=== PATIENT | male | born 1960 | race African-American/Black ===

== ENCOUNTER 2018-04-20 17:01 | Emergency (ER) | payer OTHER ==
[2018-04-20] MEDS ORDERED: ASPIRIN 81 MG TABLET, CHEWABLE PO ONE (17:37)
--- NOTE | 2018-04-20 17:37 | ER Document Report ---
ED Medical Screen (RME) - General Chief Complaint: Chest Pain Stated Complaint: CHEST PAIN,ARM NUMBNESS Time Seen by Provider: 04/20/18 17:34 Notes: RAPID MEDICAL EVALUATION DISCLOSURE I have seen this patient as part of a Rapid Medical Evaluation and, if applicable, placed any initially appropriate orders. The patient will be seen and fully evaluated, including a full history and physical exam, by a provider ( in Main ED or Fast Track) when a room becomes available. 57-year-old male here with complaints of left-sided chest pain radiating up to the left shoulder down the left arm with arm numbness shortness of breath lightheadedness nausea ongoing for the past 2 hours. Symptoms are not worse with exertion or breathing. He thought it was his acid reflux so he took 1 dose of omeprazole with minimal relief. He denies any prior history of CAD diabetes hyperlipidemia tobacco use but does have a history of hypertension and does recreationally use marijuana. EXAM CTAB RRR NOTE Patient states he is not allergic to aspirin TRAVEL OUTSIDE OF THE [place] IN LAST 30 DAYS: No - Related Data Allergies/Adverse Reactions: meloxicam Allergy (Intermediate, Verified 04/20/18 17:02) Dizziness pentazocine Adverse Reaction (Intermediate, Verified 04/20/18 17:02) LIGHTHEADEDNESS metoclopramide Adverse Reaction (Verified 04/20/18 17:02) UNKNOWN tamsulosin Adverse Reaction (Verified 04/20/18 17:02) UNKNOWN Past Medical History - Past Medical History Cardiac Medical History: Reports: Hx Hypertension Denies: Hx Coronary Artery Disease, Hx Heart Attack Pulmonary Medical History: Reports: Hx Pneumonia - HX OF Denies: Hx Asthma, Hx Bronchitis, Hx COPD Neurological Medical History: Denies: Hx Cerebrovascular Accident, Hx Seizures Musculoskeltal Medical History: Reports Hx Arthritis - osteoarthritis - Immunizations Hx Diphtheria, Pertussis, Tetanus Vaccination: No - UNSURE Physical Exam - Vital signs Vitals: Temp Pulse Resp BP Pulse Ox 97.6 F 62 24 H 141/75 H 99 04/20/18 17:21 04/20/18 17:21 04/20/18 17:21 04/20/18 17:21 04/20/18 17:21 Course - Vital Signs Vital signs: Temp Pulse Resp BP Pulse Ox 97.6 F 62 24 H 141/75 H 99 04/20/18 17:21 04/20/18 17:21 04/20/18 17:21 04/20/18 17:21 04/20/18 17:21 Doctor's Discharge - Discharge Referrals: FABRIZIO MUÑIZ MD [Primary Care Provider] - Follow up as needed
--- NOTE | 2018-04-20 17:58 | RADIOLOGY REPORT (SQ) ---
EXAM DESCRIPTION: CHEST 2 VIEWS COMPLETED DATE/TIME: 04/20/2018 5:46 pm REASON FOR STUDY: CP SOB COMPARISON: 03/03/2016 EXAM PARAMETERS: NUMBER OF VIEWS: two views TECHNIQUE: Digital Frontal and Lateral radiographic views of the chest acquired. RADIATION DOSE: NA LIMITATIONS: none FINDINGS: LUNGS AND PLEURA: 2 cm nodular opacity over the left upper lobe, new compared with the 201 6 exam. No pneumothorax. No pleural effusion. MEDIASTINUM AND HILAR STRUCTURES: No masses or contour abnormalities. HEART AND VASCULAR STRUCTURES: Heart normal size. No evidence for failure. BONES: No acute findings. HARDWARE: None in the chest. OTHER: No other significant finding. IMPRESSION: 2 cm nodular opacity over the left upper lobe, new compared with the 2016 exam. TECHNICAL DOCUMENTATION: JOB ID: [id number] [employer]- All Rights Reserved Reading location - IP/workstation name: [facility] management
[2018-04-20 18:10] LABS: ABSOLUTE BASOPHILS # (AUTO) 0.1 10^3/uL (0.0-0.2); ABSOLUTE LYMPHOCYTES (AUTO) 2.5 10^3/uL (0.5-4.7); ABSOLUTE MONOCYTES (AUTO) 0.8 10^3/uL (0.1-1.4); ABSOLUTE NEUT (AUTO) 6.5 10^3/uL (1.7-8.2); BASOPHILS % (AUTO) 0.9 % (0-2); EOSINOPHILS % (AUTO) 0.5 % (0-6); HEMATOCRIT 45.3 % (37.9-51.0); HEMOGLOBIN 15.9 g/dL (13.5-17.0); LYMPHOCYTES % (AUTO) 24.8 % (13-45); MEAN CORPUSCULAR HEMOGLOBIN 30.2 pg (27.0-33.4); MEAN CORPUSCULAR HGB CONC 35.1 g/dL (32.0-36.0); MEAN CORPUSCULAR VOLUME 86 fl (80-97); MONOCYTES % (AUTO) 7.6 % (3-13); PLATELET COUNT 347 10^3/uL (150-450); RED BLOOD COUNT 5.27 10^6/uL (4.35-5.55); RED CELL DISTRIBUTION WIDTH 16.7 % (11.5-14.0); SEGMENTED NEUTROPHILS % (AUTO) 66.2 % (42-78); TOTAL CELLS COUNTED % (AUTO) 100 %; WHITE BLOOD COUNT 9.9 10^3/uL (4.0-10.5)
[2018-04-20 18:21] LABS: ALANINE AMINOTRANSFERASE 26 U/L (21-72); ALBUMIN 4.3 g/dL (3.5-5.0); ALKALINE PHOSPHATASE 97 U/L (38-126); ANION GAP 17 (5-19); ASPARTATE AMINO TRANSFERASE 22 U/L (17-59); BILIRUBIN,DIRECT 0.4 mg/dL (0.0-0.4); BILIRUBIN,TOTAL 0.5 mg/dL (0.2-1.3); BLOOD UREA NITROGEN 13 mg/dL (7-20); CALCIUM 10.1 mg/dL (8.4-10.2); CARBON DIOXIDE 22 mmol/L (22-30); CHLORIDE 105 mmol/L (98-107); GLUCOSE 139 mg/dL (75-110); POTASSIUM 3.5 mmol/L (3.6-5.0); SODIUM 143.5 mmol/L (137-145); TOTAL PROTEIN 8.3 g/dL (6.3-8.2)
[2018-04-20 18:32] LABS: NT PRO BNP 64 pg/mL (5-900)
[2018-04-20 18:33] LABS: TROPONIN I < 0.012 ng/mL
[2018-04-20] MEDS ORDERED: ONDANSETRON 4 MG TAB.RAPDIS PO ONE (19:06)
[2018-04-20] MEDS ORDERED: LIDOCAINE 2% VISCOUS SOLN 20 ML UDCUP PO ONE (19:06)
[2018-04-20] MEDS ORDERED: MAG HYDROX/AL HYDROX/SIMETH SUSP 30 ML UDCUP PO ONE (19:06)
[2018-04-20] MEDS ORDERED: FAMOTIDINE 20 MG TABLET PO ONE (19:06)
--- NOTE | 2018-04-20 19:15 | ER Document Report ---
ED General - General Chief Complaint: Chest Pain Stated Complaint: CHEST PAIN,ARM NUMBNESS Time Seen by Provider: 04/20/18 17:34 Notes: The patient is a 57-year-old male with a past medical history of hypertension, recurrent gastritis, prior smoker who presents with 3-4 hours of left-sided chest pain radiating into the left upper extremity. He describes it as a pressure, stabbing-like sensation over the left chest. Symptoms started abruptly and have been constant since that time. Nothing seems to improve or worsen the pain. He states this feels very similar to when he has had gastritis in the past. He has not seen his general doctor regarding today's concerns. He denies any associated shortness of breath, nausea vomiting or diaphoresis. He has never required a cardiac catheterization or stress test in the past. TRAVEL OUTSIDE OF THE [place] IN LAST 30 DAYS: No - Related Data Allergies/Adverse Reactions: meloxicam Allergy (Intermediate, Verified 04/20/18 17:02) Dizziness pentazocine Adverse Reaction (Intermediate, Verified 04/20/18 17:02) LIGHTHEADEDNESS metoclopramide Adverse Reaction (Verified 04/20/18 17:02) UNKNOWN tamsulosin Adverse Reaction (Verified 04/20/18 17:02) UNKNOWN Past Medical History - General Information source: Patient - Social History Smoking Status: Current Every Day Smoker Frequency of alcohol use: 2-3 times a week Drug Abuse: Marijuana Lives with: Alone Family History: Reviewed & Not Pertinent Patient has suicidal ideation: No Patient has homicidal ideation: No - Past Medical History Cardiac Medical History: Reports: Hx Hypertension Denies: Hx Coronary Artery Disease, Hx Heart Attack Pulmonary Medical History: Reports: Hx Pneumonia - HX OF Denies: Hx Asthma, Hx Bronchitis, Hx COPD Neurological Medical History: Denies: Hx Cerebrovascular Accident, Hx Seizures Renal/ Medical History: Denies: Hx Peritoneal Dialysis Musculoskeltal Medical History: Reports Hx Arthritis - osteoarthritis - Immunizations Hx Diphtheria, Pertussis, Tetanus Vaccination: No - UNSURE Review of Systems - Review of Systems Notes: Constitutional: Negative for fever. HENT: Negative for sore throat. Eyes: Negative for visual changes. Cardiovascular: Positive for chest pain. Respiratory: Negative for shortness of breath. Gastrointestinal: Negative for abdominal pain, vomiting or diarrhea. Genitourinary: Negative for dysuria. Musculoskeletal: Negative for back pain. Skin: Negative for rash. Neurological: Negative for headaches, weakness or numbness. 10 point ROS negative except as marked above and in HPI. Physical Exam - Vital signs Vitals: Temp Pulse Resp BP Pulse Ox 97.6 F 62 24 H 141/75 H 99 04/20/18 17:21 04/20/18 17:21 04/20/18 17:21 04/20/18 17:21 04/20/18 17:21 Notes: PHYSICAL EXAMINATION: GENERAL: Well-appearing, well-nourished and in no acute distress. HEAD: Atraumatic, normocephalic. EYES: Pupils equal round and reactive to light, extraocular movements intact, sclera anicteric, conjunctiva are normal. ENT: nares patent, oropharynx clear without exudates. Moist mucous membranes. NECK: Normal range of motion, supple without lymphadenopathy LUNGS: Breath sounds clear to auscultation bilaterally and equal. No wheezes rales or rhonchi. HEART: Regular rate and rhythm without murmurs ABDOMEN: Soft, nontender, normoactive bowel sounds. No guarding, no rebound. No masses appreciated. EXTREMITIES: Normal range of motion, no pitting or edema. No cyanosis. NEUROLOGICAL: No focal neurological deficits. Moves all extremities spontaneously and on command. PSYCH: Normal mood, normal affect. SKIN: Warm, Dry, normal turgor, no rashes or lesions noted. Course - Re-evaluation Re-evalutation: 04/20/18 19:06 Presentation of chest pain in an otherwise well appearing patient. Low to moderate clinical suspicion for ACS given clinical history, exam, EKG without ST elevations or depressions, although he does have some some subtle inferior changes relative to his prior finding. Negative initial troponin. PE also seems unlikely given clinical history, absence of tachycardia or dyspnea. Patient is PERC criteria negative. CXR without evidence of pneumothorax or pneumonia. No widened mediastinum. Aortic dissection also seems unlikely given history, symmetric pulses, CXR, and vitals. Patient reports a long-standing history of similar symptoms in the past that have been attributed to gastritis. Will repeat a delta troponin empirically treat his possible gastritis in the interim. Of note, the patient's chest x-ray does incidentally show 2 new left upper lobe nodularities that were not previously seen. The patient has been notified of this finding as well as the need for outpatient follow-up. 04/20/18 21:50 Patient's repeat troponin has up trended to 0.113 which is below our AMI cut off but given this uptrend he will require hospitalization. The patient does continue to intermittently have chest pain and is now receiving nitroglycerin. Will consult with Zahraa Schmid for consideration of transfer. 04/20/18 22:04 I have discussed this case with Dr. Bryant Alvarez who has accepted the patient for transfer. The patient does continue to have chest pains with nitroglycerin infusion has been started. Patient has received Lovenox, atorvastatin and aspirin. Repeat EKG has actually shown resolution of prior ST changes in the inferior leads, no new elevation pattern. Awaiting transfer 04/21/18 00:33 Transport has arrived for patient transfer. The patient had previously been chest pain-free but on this last reassessment he is again complaining of chest pain. The nitro glycerin has however to be weaned down because it was causing periods of hypotension. We will give an additional dose of fentanyl. Patient is stable for transport otherwise. - Vital Signs Vital signs: Temp Pulse Resp BP Pulse Ox 98.3 F 62 24 H 131/84 H 100 04/21/18 00:30 04/20/18 23:08 04/21/18 00:30 04/21/18 00:30 04/21/18 00:30 - Laboratory Result Diagrams: 04/20/18 17:54 04/20/18 17:54 Laboratory results interpreted by me: 04/20/18 04/20/18 17:54 17:54 RDW 16.7 H Potassium 3.5 L Creatinine 1.40 H Est GFR (Non-Af Amer) 52 L Glucose 139 H Total Protein 8.3 H - Diagnostic Test Radiology reviewed: Image reviewed, Reports reviewed Radiology results interpreted by me: 04/20/18 19:16 Chest x-ray: No acute infiltrate or pneumothorax - EKG Interpretation by Me Additional EKG results interpreted by me: 04/20/18 19:15 Sinus rhythm. Rate 64. Very subtle 0.25 mm elevation in lead II new from prior as well as aVF new from prior. QTC is 491. 04/20/18 21:51 Discharge - Discharge Clinical Impression: NSTEMI (non-ST elevated myocardial infarction) Chest pain Qualifiers: Chest pain type: unspecified Qualified Code(s): R07.9 - Chest pain, unspecified Condition: Fair Disposition: [facility] Referrals: FABRIZIO MUÑIZ MD [NO LOCAL MD] - Follow up as needed
--- NOTE | 2018-04-20 19:31 | EKG REPORT ---
SEVERITY:- ABNORMAL ECG - SINUS RHYTHM PROBABLE LEFT ATRIAL ABNORMALITY BORDERLINE ST ELEVATION, INFERIOR LEADS BORDERLINE PROLONGED QT INTERVAL : Confirmed by: Ruddy Jeffers MD 20-Apr-2018 19:30:38
[2018-04-20] MEDS ORDERED: LIDOCAINE 5% (700 MG) TRANSDERMAL ADH..PATCH TP ONE (20:34)
[2018-04-20] MEDS ORDERED: LORAZEPAM 1 MG TABLET PO ONE (20:34)
[2018-04-20] MEDS ORDERED: ATORVASTATIN CALCIUM 80 MG TABLET PO ONE (21:53)
[2018-04-20] MEDS: NITROGLYCERIN 0.4 MG/TAB 25 TAB/BOTTLE SL PRN ×2 (21:56→22:02)
[2018-04-20] MEDS ORDERED: ENOXAPARIN SODIUM INJ 100 MG/1 ML DISP.SYRIN SUBCUT SCH (22:00)
[2018-04-20] MEDS ORDERED: NITROGLYCERIN/D5W 50 MG/250 ML RTUINJ IV PRN (22:03)
[2018-04-20] MEDS: FENTANYL CITRATE INJ/PF 100 MCG/2 ML AMPUL IV PRN (23:10)
--- NOTE | 2018-04-20 23:34 | EKG REPORT ---
SEVERITY:- ABNORMAL ECG - SINUS RHYTHM BORDERLINE T ABNORMALITIES, ANT-LAT LEADS PROLONGED QT INTERVAL : Confirmed by: Ruddy Jeffers MD 20-Apr-2018 23:33:14
[2018-04-21] MEDS: FENTANYL CITRATE INJ/PF 100 MCG/2 ML AMPUL IV PRN (00:37)
[2018-04-21 00:53] VITALS: BP 131/84
== END 2018-04-21 00:54 | disposition short-term general hospital (02) ==
LOC: ER 17:01
DX: I21.4 Non-ST elevation (NSTEMI) myocardial infarction (principal); R07.9 Chest pain, unspecified; R91.8 Other nonspecific abnormal finding of lung field; M79.602 Pain in left arm; I10 Essential (primary) hypertension; F17.200 Nicotine dependence, unspecified, uncomplicated
CPT/HCPCS: 93005; 99285; 36415; 85025; 80053; 84484; 83880; 71046; 93010; S0119; J3010 ×2; J3490 ×2; J1650

== ENCOUNTER 2018-08-01 09:32 | Observation (INO) | payer OTHER ==
--- NOTE | 2018-08-01 09:44 | ER Document Report ---
ED General - General Chief Complaint: Chest Pain Stated Complaint: LEFT EYE PAIN Time Seen by Provider: 08/01/18 09:43 Notes: Patient is a 58-year-old male with CAD that presents to the emergency department for chief complaint of chest pain, and left eye pain. Patient states that he started having left eye pain about a week ago, he has been trying to take ibuprofen for it which does help intermittently and the pain comes back he describes the pain as a throbbing sensation, just above the eye, and wraps around the inside towards the tear duct. Denies having any swelling or redness in his eyes denies any visual loss, but states he occasionally sees some spots in his vision. But denies actually having loss of central or peripheral vision. He also notes he has been having chest pain on and off for about a week, he describes that is constant, tightness in his chest, he does have a history of CAD with a left heart catheterization performed in April of this year, that demonstrated some stenosis, without intervention. He states that the pain was worse with exertion, did have some shortness of breath. He received nitroglycerin, and aspirin by EMS. He denies having any recent fevers , chills, cough, headaches, lightheadedness, syncope. Past Medical History: CAD, hypertension, hyperlipidemia Past Surgical History: Left heart catheterization Social History: Admits to smoking cigarettes, and occasional alcohol use, denies illicit drug use. Family History: Reviewed and noncontributory for presenting illness Allergies: Reviewed, see documented allergy list. REVIEW OF SYSTEMS: Unless otherwise stated in this report the patient's positive and negative responses for review of systems for constitutional, eyes, ENT, cardiovascular, respiratory, gastrointestinal, neurological, genitourinary, musculoskeletal, and integumentary systems and related systems to the presenting problem are either as stated in the HPI or were not pertinent or were negative for the symptoms and/or complaints related to the presenting medical problem. PHYSICAL EXAMINATION: Vital signs reviewed, nursing noted reviewed. GENERAL: Well-appearing, well-nourished and appears uncomfortable HEAD: Atraumatic, normocephalic. EYES: Eyes appear normal, extraocular movements intact, sclera anicteric, conjunctiva are normal. ENT: nares patent, oropharynx clear without exudates. Moist mucous membranes. Forcing dye exam negative for signs of corneal abrasion, PERRLA, visual acuity intact, no visual field loss, tonometry pressures average 18 in the left eye, and 20 in the right eye, which is within normal limits. NECK: Normal range of motion, supple without lymphadenopathy LUNGS: Breath sounds clear to auscultation bilaterally and equal. No wheezes rales or rhonchi. HEART: Regular rate and rhythm without murmurs ABDOMEN: Soft, nontender, normoactive bowel sounds. No rebound, guarding, or rigidity. No masses appreciated. EXTREMITIES: Nontender, good range of motion, no pitting or edema. NEUROLOGICAL: No focal neurological deficits. Moves all extremities spontaneously Motor and sensory grossly intact on exam. PSYCH: Normal mood, normal affect. SKIN: Warm, Dry, normal turgor, no rashes or lesions noted on exposed skin TRAVEL OUTSIDE OF THE [place] IN LAST 30 DAYS: No - Related Data Allergies/Adverse Reactions: meloxicam Allergy (Intermediate, Verified 04/20/18 17:02) Dizziness pentazocine Adverse Reaction (Intermediate, Verified 04/20/18 17:02) LIGHTHEADEDNESS metoclopramide Adverse Reaction (Verified 04/20/18 17:02) UNKNOWN tamsulosin Adverse Reaction (Verified 04/20/18 17:02) UNKNOWN Past Medical History - Social History Smoking Status: Current Every Day Smoker Family History: Reviewed & Not Pertinent - Past Medical History Cardiac Medical History: Reports: Hx Hypertension Denies: Hx Coronary Artery Disease, Hx Heart Attack Pulmonary Medical History: Reports: Hx Pneumonia - HX OF Denies: Hx Asthma, Hx Bronchitis, Hx COPD Neurological Medical History: Denies: Hx Cerebrovascular Accident, Hx Seizures Renal/ Medical History: Denies: Hx Peritoneal Dialysis Musculoskeletal Medical History: Reports Hx Arthritis - osteoarthritis - Immunizations Hx Diphtheria, Pertussis, Tetanus Vaccination: No - UNSURE Physical Exam - Vital signs Vitals: Resp Pulse Ox 16 99 08/01/18 09:44 08/01/18 09:44 Course - Re-evaluation Re-evalutation: Patient seen and examined vital signs reviewed. Laboratory data and imaging were ordered as appropriate for the patient's presenting symptoms and complaint, with consideration of any critical or life threatening conditions that may be associated with their obtained history and exam as noted above. Patient was treated with Zofran, and morphine, received aspirin and nitroglycerin by squad Results were reviewed when available and demonstrated elevated CRP and ESR, troponin negative, EKG did demonstrate changes as described, The patient was re-evaluated and was still having some discomfort, IV Solu- Medrol was ordered, possible early temporal arteritis, as the patient did have tenderness over the temporal artery, without a pulsatile mass, fortunately without vision loss Evaluation was most consistent with nonspecific chest pain, and eye pain, possible temporal arteritis Results were discussed with the patient at this point after careful consideration I feel that that patient should be admitted to the hospital. This was discussed with the patient that it is in the best interest for their care to be admitted for further evaluation and management. Patient agreed with this plan of care. A call was placed to the admitted physician, Dr. Thomas, referred to the nurse practitioner Radha Buckner who graciously accepted the patient onto their service. *Note is created using voice recognition software and may contain spelling, syntax or grammatical errors. Laboratory 08/01/18 08/01/18 08/01/18 10:40 10:40 10:40 WBC 8.1 RBC 4.68 Hgb 13.8 Hct 39.3 MCV 84 MCH 29.4 MCHC 35.1 RDW 16.2 H Plt Count 418 Seg Neutrophils % 59.0 Lymphocytes % 29.4 Monocytes % 9.7 Eosinophils % 0.7 Basophils % 1.2 Absolute Neutrophils 4.8 Absolute Lymphocytes 2.4 Absolute Monocytes 0.8 Absolute Eosinophils 0.1 Absolute Basophils 0.1 ESR 78 H Sodium 138.3 Potassium 3.7 Chloride 103 Carbon Dioxide 25 Anion Gap 10 BUN 8 Creatinine 1.12 Est GFR ( Amer) > 60 Est GFR (Non-Af Amer) > 60 Glucose 98 Calcium 9.6 Total Bilirubin 0.6 Direct Bilirubin 0.5 H Neonat Total Bilirubin Not Reportable Neonat Direct Bilirubin Not Reportable Neonat Indirect Bili Not Reportable AST 19 ALT 26 Alkaline Phosphatase 99 Creatine Kinase 55 CK-MB (CK-2) 0.32 Troponin I < 0.012 C-Reactive Protein 37.5 H Total Protein 7.8 Albumin 3.8 Chest X-Ray 08/01/18 09:34 IMPRESSION: NO ACUTE RADIOGRAPHIC FINDING IN THE CHEST. Head CT 08/01/18 10:13 IMPRESSION: 1. No acute intracranial event. 2. Retention cyst or polyps in the maxillary sinuses and a single left ethmoid air cell. EVIDENCE OF ACUTE STROKE: NO. - Vital Signs Vital signs: Temp Pulse Resp BP Pulse Ox 98.3 F 60 16 123/77 96 08/01/18 09:49 08/01/18 13:40 08/01/18 13:40 08/01/18 11:01 08/01/18 13:40 - Laboratory Result Diagrams: 08/01/18 10:40 08/01/18 10:40 Laboratory results interpreted by me: 08/01/18 08/01/18 10:40 10:40 RDW 16.2 H ESR 78 H Direct Bilirubin 0.5 H C-Reactive Protein 37.5 H - EKG Interpretation by Me Additional EKG results interpreted by me: EKG demonstrates normal sinus rhythm with a ventricular rate of 59 bpm, normal axis, QTC 484 ms, there is T wave inversions noted in leads II, 3, aVF, V3 through V6, this is compared with prior EKG from 04/20/2018, where these T wave inversions are a new finding. Discharge - Discharge Clinical Impression: Chest pain Qualifiers: Chest pain type: unspecified Qualified Code(s): R07.9 - Chest pain, unspecified Eye pain Qualifiers: Laterality: left Qualified Code(s): H57.12 - Ocular pain, left eye Condition: Stable Disposition: ADMITTED OBSERVATION Admitting Provider: Jah Buckner [employer] Unit Admitted: Telemetry
[2018-08-01] MEDS ORDERED: TETRACAINE HCL 0.5% OPH SOLN 4 ML OU ONE (10:00)
[2018-08-01] MEDS ORDERED: ONDANSETRON HCL INJ/PF 4 MG/2 ML SDV IV ONE (10:14)
[2018-08-01] MEDS ORDERED: MORPHINE SULFATE 10 MG/ML INJ IV ONE ×2 (10:14→14:30)
--- NOTE | 2018-08-01 10:32 | RADIOLOGY REPORT (SQ) ---
EXAM DESCRIPTION: CHEST SINGLE VIEW COMPLETED DATE/TIME: 08/01/2018 10:23 am REASON FOR STUDY: bed 19 cp COMPARISON: 04/20/2018 EXAM PARAMETERS: NUMBER OF VIEWS: One view. TECHNIQUE: Single frontal radiographic view of the chest acquired. RADIATION DOSE: NA LIMITATIONS: None. FINDINGS: LUNGS AND PLEURA: No opacities, masses or pneumothorax. No pleural effusion. Left upper l obe opacity previously described is no longer noted. This may have been secondary to confluence of s hadows. MEDIASTINUM AND HILAR STRUCTURES: No masses. Contour normal. HEART AND VASCULAR STRUCTURES: Heart normal in size. Normal vasculature. BONES: No acute findings. HARDWARE: None in the chest. OTHER: No other significant finding. IMPRESSION: NO ACUTE RADIOGRAPHIC FINDING IN THE CHEST. TECHNICAL DOCUMENTATION: JOB ID: [id number] [employer]- All Rights Reserved Reading location - IP/workstation name: [email or web address]
--- NOTE | 2018-08-01 10:54 | RADIOLOGY REPORT (SQ) ---
EXAM DESCRIPTION: CT HEAD WITHOUT COMPLETED DATE/TIME: 08/01/2018 10:44 am REASON FOR STUDY: headache, left eye pain COMPARISON: None. TECHNIQUE: Axial images acquired through the brain without intravenous contrast. Images reviewed wi th bone, brain and subdural windows. Images stored on PACS. All CT scanners at this facility use dose modulation, iterative reconstruction, and/or weight based d osing when appropriate to reduce radiation dose to as low as reasonably achievable (ALARA). [facility]: Dose Right [facility]: CareDose [facility]: Dose Right [facility]: Teradose 4D [facility]: Smart [employer] RADIATION DOSE: CT Rad equipment meets quality standard of care and radiation dose reduction techniq ues were employed. CTDIvol: 53.2 mGy. DLP: 1017 mGy-cm. mGy. LIMITATIONS: None. FINDINGS: VENTRICLES: Normal size and contour. CEREBRUM: No masses. No hemorrhage. No midline shift. No evidence for acute infarction. Normal gra y/white matter differentiation. No areas of low density in the white matter. CEREBELLUM: No masses. No hemorrhage. No alteration of density. No evidence for acute infarction. EXTRAAXIAL SPACES: No fluid collections. No masses. ORBITS AND GLOBE: No intra- or extraconal masses. Normal contour of globe without masses. CALVARIUM: No fracture. PARANASAL SINUSES: There retention cyst or polyps in both maxillary sinuses as well as in a single le ft ethmoid air cell. SOFT TISSUES: No mass or hematoma. OTHER: No other significant finding. IMPRESSION: 1. No acute intracranial event. 2. Retention cyst or polyps in the maxillary sinuses and a single left ethmoid air cell. EVIDENCE OF ACUTE STROKE: NO. COMMENT: Quality ID # [id number]: Final reports with documentation of one or more dose reduction techniques (e.g., Automated exposure control, adjustment of the mA and/or kV according to patient size, use of iterative reconstruction technique) TECHNICAL DOCUMENTATION: JOB ID: [id number] [employer]- All Rights Reserved Reading location - IP/workstation name: [email or web address]
[2018-08-01 11:00] LABS: ABSOLUTE BASOPHILS # (AUTO) 0.1 10^3/uL (0.0-0.2); ABSOLUTE EOSINOPHILS # (AUTO) 0.1 10^3/uL (0.0-0.6); ABSOLUTE LYMPHOCYTES (AUTO) 2.4 10^3/uL (0.5-4.7); ABSOLUTE MONOCYTES (AUTO) 0.8 10^3/uL (0.1-1.4); ABSOLUTE NEUT (AUTO) 4.8 10^3/uL (1.7-8.2); BASOPHILS % (AUTO) 1.2 % (0-2); EOSINOPHILS % (AUTO) 0.7 % (0-6); HEMATOCRIT 39.3 % (37.9-51.0); HEMOGLOBIN 13.8 g/dL (13.5-17.0); LYMPHOCYTES % (AUTO) 29.4 % (13-45); MEAN CORPUSCULAR HEMOGLOBIN 29.4 pg (27.0-33.4); MEAN CORPUSCULAR HGB CONC 35.1 g/dL (32.0-36.0); MEAN CORPUSCULAR VOLUME 84 fl (80-97); MONOCYTES % (AUTO) 9.7 % (3-13); PLATELET COUNT 418 10^3/uL (150-450); RED BLOOD COUNT 4.68 10^6/uL (4.35-5.55); RED CELL DISTRIBUTION WIDTH 16.2 % (11.5-14.0); TOTAL CELLS COUNTED % (AUTO) 100 %; WHITE BLOOD COUNT 8.1 10^3/uL (4.0-10.5)
[2018-08-01 11:25] LABS: ALANINE AMINOTRANSFERASE 26 U/L (21-72); ALBUMIN 3.8 g/dL (3.5-5.0); ALKALINE PHOSPHATASE 99 U/L (38-126); ANION GAP 10 (5-19); ASPARTATE AMINO TRANSFERASE 19 U/L (17-59); BILIRUBIN,DIRECT 0.5 mg/dL (0.0-0.4); BILIRUBIN,TOTAL 0.6 mg/dL (0.2-1.3); BLOOD UREA NITROGEN 8 mg/dL (7-20); C-REACTIVE PROTEIN 37.5 mg/L (<10.0); CALCIUM 9.6 mg/dL (8.4-10.2); CARBON DIOXIDE 25 mmol/L (22-30); CHLORIDE 103 mmol/L (98-107); CREATINE KINASE 55 U/L (55-170); GLUCOSE 98 mg/dL (75-110); POTASSIUM 3.7 mmol/L (3.6-5.0); SODIUM 138.3 mmol/L (137-145); TOTAL PROTEIN 7.8 g/dL (6.3-8.2)
[2018-08-01 11:34] LABS: CREATINE KINASE MB 0.32 ng/mL (<4.55)
[2018-08-01 11:35] LABS: TROPONIN I < 0.012 ng/mL
[2018-08-01 11:37] LABS: ERYTHROCYTE SEDIMENTATION RATE 78 mm/hr (0-20)
[2018-08-01] MEDS ORDERED: METHYLPREDNISOLONE INJ 125 MG/2 ML SDV IV ONE (12:25)
[2018-08-01] MEDS ORDERED: ONDANSETRON HCL INJ/PF 4 MG/2 ML SDV IV PRN (13:04)
[2018-08-01] MEDS ORDERED: MAG HYDROX/AL HYDROX/SIMETH SUSP 30 ML UDCUP PO PRN (13:04)
[2018-08-01] MEDS ORDERED: ALBUTEROL SULFATE 0.083% NEB 2.5 MG/3 ML AMPUL NEB PRN (13:04)
[2018-08-01] MEDS ORDERED: NITROGLYCERIN 0.4 MG/TAB 25 TAB/BOTTLE SL PRN (13:10)
[2018-08-01] MEDS ORDERED: MORPHINE SULFATE 10 MG/ML INJ IV PRN (13:10)
[2018-08-01] MEDS: HEPARIN SOD (PORCINE) 5,000 UNIT/ML 1 ML SYRINGE SUBCUT SCH ×2 (14:32→21:13)
[2018-08-01] MEDS ORDERED: KETOROLAC TROMETHAMINE INJ/PF 30 MG/1 ML SDV IV PRN (16:13)
[2018-08-01] MEDS ORDERED: LIDOCAINE 2% VISCOUS SOLN 20 ML UDCUP PO ONE (16:14)
[2018-08-01] MEDS ORDERED: METOCLOPRAMIDE HCL ORAL SOLN 10 MG/10 ML UDCUP PO ONE (16:14)
[2018-08-01] MEDS ORDERED: MAG HYDROX/AL HYDROX/SIMETH SUSP 30 ML UDCUP PO ONE (16:14)
[2018-08-01] MEDS: OXYCODONE HCL IR 5 MG TABLET PO PRN ×2 (16:24→22:42)
--- NOTE | 2018-08-01 19:06 | PDOC H&P ---
History of Present Illness Admission Date/PCP: 08/01/18 12:52 FRANCINE LUCERO DO Patient complains of: Lt eye pain History of Present Illness: MARIE MELGAR is a 58 year old male with a past medical history significant for recent non-STEMI (April 2018), hypertension, GERD, osteoarthritis, tobacco abuse, substance abuse who presented to the emergency department today from his primary care provider's office via EMS with report of chest pain. Upon arrival , the patient reported that his primary concern was severe left eye pain that has been present for at least 1 week and gradually worsening. He denies vision loss. Pain is nonradiating, not worsened by ocular movements or blinking. He denies injury to the eye. He does report that the pain increases slightly with talking and chewing. Denies previous similar discomfort. The patient does endorse slight substernal/epigastric pain described as vague pressure is slightly migratory but does not radiate to his back or shoulder and is not associated with dizziness, dyspnea, diaphoresis, or nausea. He reports that the pain is more similar to previous episodes of reflux that responded well to GI cocktails and not like the chest pain he experienced during his recent IN. He reports that he had a cardiac cath completed while at [facility] in April that was negative; "only 10% blockage" with recommendations for cardiac rehab which she has not yet begun. He expressed frustration that the ED and hospital staff are only interested in his chest pain when his "real problem" his pain. Evaluation the emergency department revealed an elevated ESR (78) and CRP (37.5) , and otherwise unremarkable lab work including normal troponin. EKG does reveal T-wave inversion of leads II, 3, aVF, 4, 5, and 6 that is new compared to his previous EKG in April (however, it is notable that the previous EKG was obtained during the early acute phase of his IN and we do not have a post cath EKG to compare to), benign chest x-ray, and normal head CT. The patient was initiated on IV Solu-Medrol for presumed temporal arteritis and subsequently referred to the hospitalist service for chest pain rule out. Past Medical History Cardiac Medical History: Reports: Myocardial Infarction - Non-STEMI April 2016, Hypertension Denies: Congestive Heart Failure, Coronary Artery Disease Pulmonary Medical History: Reports: Pneumonia Denies: Asthma, Bronchitis, Chronic Obstructive Pulmonary Disease (COPD) EENT Medical History: Reports: None Neurological Medical History: Denies: Ischemic CVA, Seizures Endocrine Medical History: Reports: None Renal/ Medical History: Reports: None GI Medical History: Reports: Gastroesophageal Reflux Disease Musculoskeltal Medical History: Reports: Arthritis - osteoarthritis Skin Medical History: Reports: None Psychiatric Medical History: Reports: Substance Abuse, Tobacco Dependency Traumatic Medical History: Reports: None Hematology: Denies: Anemia Infectious Medical History: Reports: None Past Surgical History Past Surgical History: Reports: None Social History Information Source: Patient Smoking Status: Current Every Day Smoker Cigarettes Packs Per Day: 0.5 Frequency of Alcohol Use: Occasional Hx Recreational Drug Use: Yes Drugs: Marijuana Hx Prescription Drug Abuse: No - Advance Directive Resuscitation Status: Full Code Family History Family History: Reviewed & Not Pertinent Parental Family History Reviewed: Yes Children Family History Reviewed: Yes Sibling(s) Family History Reviewed.: Yes Medication/Allergy Home Medications: Amlodipine Besylate [Norvasc 10 mg Tablet] 10 mg PO DAILY 08/01/18 Atorvastatin Calcium [Lipitor 40 mg Tablet] 40 mg PO QHS 08/01/18 Lisinopril [Prinivil 40 mg Tablet] 40 mg PO DAILY 08/01/18 Polyethylene Glycol 3350 [Miralax Powder 17 gm/Packet] 1 packet PO DAILY Sildenafil Citrate [Viagra] 100 mg PO PRN PRN 08/01/18 Allergies/Adverse Reactions: meloxicam Allergy (Intermediate, Verified 04/20/18 17:02) Dizziness pentazocine Adverse Reaction (Intermediate, Verified 04/20/18 17:02) LIGHTHEADEDNESS metoclopramide Adverse Reaction (Verified 04/20/18 17:02) UNKNOWN tamsulosin Adverse Reaction (Verified 04/20/18 17:02) UNKNOWN Review of Systems Constitutional: ABSENT: chills, fever(s), headache(s), weight gain, weight loss Eyes: PRESENT: as per HPI. ABSENT: visual disturbances Ears: ABSENT: hearing changes Cardiovascular: PRESENT: chest pain. ABSENT: dyspnea on exertion, edema, orthropnea, palpitations Respiratory: ABSENT: cough, dyspnea, hemoptysis Gastrointestinal: PRESENT: heartburn. ABSENT: abdominal pain, constipation, diarrhea, hematemesis, hematochezia, nausea, vomiting Genitourinary: ABSENT: dysuria, hematuria Musculoskeletal: ABSENT: joint swelling Integumentary: ABSENT: rash, wounds Neurological: ABSENT: abnormal gait, abnormal speech, confusion, dizziness, focal weakness, syncope Psychiatric: ABSENT: anxiety, depression, homidical ideation, suicidal ideation Endocrine: ABSENT: cold intolerance, heat intolerance, polydipsia, polyuria Hematologic/Lymphatic: ABSENT: easy bleeding, easy bruising Physical Exam Vital Signs: Temp Pulse Resp BP Pulse Ox 98.8 F 66 18 158/74 H 98 08/01/18 15:54 08/01/18 15:54 08/01/18 15:54 08/01/18 15:54 08/01/18 15:54 Intake & Output 07/31/18 08/01/18 08/02/18 06:59 06:59 06:59 Weight 86.4 kg General appearance: PRESENT: no acute distress, well-developed, well-nourished Head exam: PRESENT: atraumatic, normocephalic Eye exam: PRESENT: conjunctiva pink, EOMI, PERRLA. ABSENT: nystagmus, periorbital swelling, scleral icterus Ear exam: PRESENT: normal external ear exam Mouth exam: PRESENT: moist, tongue midline Neck exam: ABSENT: carotid bruit, JVD, lymphadenopathy, thyromegaly Respiratory exam: PRESENT: clear to auscultation dong, symmetrical, unlabored. ABSENT: rales, rhonchi, wheezes Cardiovascular exam: PRESENT: RRR, +S1, +S2. ABSENT: diastolic murmur, rubs, systolic murmur Pulses: PRESENT: normal dorsalis pedis pul Vascular exam: PRESENT: normal capillary refill GI/Abdominal exam: PRESENT: normal bowel sounds, soft. ABSENT: distended, guarding, mass, organolmegaly, rebound, tenderness Rectal exam: PRESENT: deferred Extremities exam: PRESENT: full ROM. ABSENT: calf tenderness, clubbing, pedal edema Neurological exam: PRESENT: alert, awake, oriented to person, oriented to place , oriented to time, oriented to situation, CN II-XII grossly intact. ABSENT: motor sensory deficit Psychiatric exam: PRESENT: agitated, appropriate affect. ABSENT: homicidal ideation, suicidal ideation Skin exam: PRESENT: dry, intact, warm. ABSENT: cyanosis, rash Results Laboratory Results: 08/01/18 14:49 Troponin I < 0.012 Impressions: Chest X-Ray 08/01/18 09:34 IMPRESSION: NO ACUTE RADIOGRAPHIC FINDING IN THE CHEST. Head CT 08/01/18 10:13 IMPRESSION: 1. No acute intracranial event. 2. Retention cyst or polyps in the maxillary sinuses and a single left ethmoid air cell. EVIDENCE OF ACUTE STROKE: NO. Assessment & Plan - Diagnosis (1) Chest pain Qualifiers: Chest pain type: unspecified Qualified Code(s): R07.9 - Chest pain, unspecified Is this a current diagnosis for this admission?: Yes Plan: The patient complains of vague substernal/epigastric chest pain described as pressure that is nonradiating and not associated with symptoms headache, dizziness, dyspnea, diaphoresis, nausea. The patient reports that the pain is most similar to previous episodes of reflux. However, he is noted to have had a recent non-STEMI. EKG does demonstrate T-wave inversion of leads II, 3, aVF, 4, 5, and 6 that is new compared to his previous EKG in April (however, it is notable that the previous EKG was obtained during the early acute phase of his IN and we do not have a post cath EKG to compare to); ST segment changes. Chest x-ray is benign. Initial troponin is normal. Lipid panel (records from primary care provider's office reviewed) is acceptable. The patient is admitted on continuous cardiac telemetry. We will continue to trend troponins. He is placed on daily aspirin and statin therapy. We will request recent EKG, echo, Capture Manager report, and discharge summary from [facility]. He is placed on Pepcid twice daily for reflux. Will trial GI cocktail per patient request. SL nitro tabs as needed for pain; IV morphine for unrelieved chest pain. (2) Eye pain Qualifiers: Laterality: left Qualified Code(s): H57.12 - Ocular pain, left eye Is this a current diagnosis for this admission?: Yes Plan: Patient denies vision changes. Head CT is negative. Slit-lamp per ED provider is benign. Patient has been provided Solu-Medrol 125 mg IV by the ED provider. Optometry has been consulted. We will continue p.o. prednisone. Oxycodone as needed for pain. (3) Hypertension Qualifiers: Hypertension type: essential hypertension Qualified Code(s): I10 - Essential (primary) hypertension Is this a current diagnosis for this admission?: Yes Plan: The patient's home medications are continued; amlodipine 10 mg daily and lisinopril 40 mg daily. (4) GERD (gastroesophageal reflux disease) Is this a current diagnosis for this admission?: Yes Plan: Pepcid twice daily. (5) Osteoarthritis Qualifiers: Osteoarthritis location: unspecified site Is this a current diagnosis for this admission?: Yes Plan: Avoid NSAIDs secondary to daily aspirin therapy and reflux symptoms. Tylenol as needed. Nonpharmacological intervention such as heat, ice, position change, increased ambulation. The patient is currently being provided oxycodone as needed for his ocular pain which should be more than satisfactory for his osteoarthritis. (6) History of IN (myocardial infarction) Is this a current diagnosis for this admission?: Yes Plan: Patient was transferred to [facility] in April 2018 with a non-STEMI. Per patient report, he underwent cardiac catheterization at that time and was reported to have a 10-20% blockage. Will request records. Remaining plan as above. (7) Tobacco abuse Is this a current diagnosis for this admission?: Yes Plan: Smoking cessation is encouraged; nicotine replacement therapies are provided. - Time Time Spent: 50 to 70 Minutes Smoking Cessation Education: 3 to 10 minutes
--- NOTE | 2018-08-01 19:35 | EKG REPORT ---
SEVERITY:- ABNORMAL ECG - SINUS RHYTHM NONSPECIFIC T ABNORMALITIES, DIFFUSE LEADS BORDERLINE PROLONGED QT INTERVAL : Confirmed by: Nisha Corea MD 01-Aug-2018 19:34:34
[2018-08-01] MEDS: FAMOTIDINE 20 MG TABLET PO SCH (21:14)
[2018-08-01] MEDS: ATORVASTATIN CALCIUM 40 MG TABLET PO SCH (21:14)
[2018-08-01] MEDS: ACETAMINOPHEN 325 MG TABLET PO PRN (21:14)
[2018-08-01] MEDS ORDERED: ATORVASTATIN CALCIUM 20 MG TABLET PO SCH (22:00)
[2018-08-01] MEDS: CARBOXYMETHYLCELLULOSE SOD 0.5% 0.4 ML DROPERETTE OU SCH (22:43)
[2018-08-02 04:45] LABS: HEMATOCRIT 38.6 % (37.9-51.0); HEMOGLOBIN 13.6 g/dL (13.5-17.0); MEAN CORPUSCULAR HEMOGLOBIN 29.3 pg (27.0-33.4); MEAN CORPUSCULAR HGB CONC 35.2 g/dL (32.0-36.0); MEAN CORPUSCULAR VOLUME 83 fl (80-97); PLATELET COUNT 393 10^3/uL (150-450); RED BLOOD COUNT 4.65 10^6/uL (4.35-5.55); RED CELL DISTRIBUTION WIDTH 16.2 % (11.5-14.0); WHITE BLOOD COUNT 12.7 10^3/uL (4.0-10.5)
[2018-08-02 05:11] LABS: ANION GAP 12 (5-19); BLOOD UREA NITROGEN 15 mg/dL (7-20); CALCIUM 9.6 mg/dL (8.4-10.2); CARBON DIOXIDE 19 mmol/L (22-30); CHLORIDE 105 mmol/L (98-107); GLUCOSE 126 mg/dL (75-110); SODIUM 136.3 mmol/L (137-145)
[2018-08-02 05:18] LABS: POTASSIUM 4.8 mmol/L (3.6-5.0)
[2018-08-02 05:25] LABS: ERYTHROCYTE SEDIMENTATION RATE 87 mm/hr (0-20)
[2018-08-02] MEDS: HEPARIN SOD (PORCINE) 5,000 UNIT/ML 1 ML SYRINGE SUBCUT SCH ×2 (05:27→13:38)
[2018-08-02] MEDS: ACETAMINOPHEN 325 MG TABLET PO PRN ×2 (07:26→20:50)
[2018-08-02] MEDS: OXYCODONE HCL IR 5 MG TABLET PO PRN (07:26)
[2018-08-02] MEDS: DOCUSATE SODIUM 100 MG CAPSULE PO SCH (09:57)
[2018-08-02] MEDS: POLYETHYLENE GLYCOL 3350 POWDER 17 GM/1 PACKET PO SCH (09:57)
[2018-08-02] MEDS: ASPIRIN 81 MG TABLET, ENT COATED PO SCH (09:59)
[2018-08-02] MEDS: AMLODIPINE BESYLATE 10 MG TABLET PO SCH (09:59)
[2018-08-02] MEDS: LISINOPRIL 10 MG TABLET PO SCH (09:59)
[2018-08-02] MEDS: CARBOXYMETHYLCELLULOSE SOD 0.5% 0.4 ML DROPERETTE OU SCH ×4 (10:00→23:39)
[2018-08-02] MEDS: PREDNISONE 20 MG TABLET PO SCH (10:00)
[2018-08-02] MEDS: NICOTINE 14 MG/24 HR PATCH.TD24 TD SCH (10:00)
[2018-08-02] MEDS: FAMOTIDINE 20 MG TABLET PO SCH ×2 (10:00→21:00)
[2018-08-02] MEDS ORDERED: MAG HYDROX/AL HYDROX/SIMETH SUSP 30 ML UDCUP PO ONE (10:57)
[2018-08-02] MEDS ORDERED: METOCLOPRAMIDE HCL ORAL SOLN 10 MG/10 ML UDCUP PO ONE (11:30)
[2018-08-02] MEDS ORDERED: LIDOCAINE 2% VISCOUS SOLN 20 ML UDCUP PO ONE (11:30)
[2018-08-02] MEDS ORDERED: DILTIAZEM HCL INJ 25 MG/5 ML VIAL IV ONE (15:30)
[2018-08-02 16:13] LABS: ANION GAP 17 (5-19); BLOOD UREA NITROGEN 19 mg/dL (7-20); CALCIUM 10.4 mg/dL (8.4-10.2); CARBON DIOXIDE 17 mmol/L (22-30); CHLORIDE 105 mmol/L (98-107); GLUCOSE 131 mg/dL (75-110); POTASSIUM 4.5 mmol/L (3.6-5.0); SODIUM 139.1 mmol/L (137-145)
--- NOTE | 2018-08-02 17:47 | RADIOLOGY REPORT (SQ) ---
EXAM DESCRIPTION: CTA CHEST COMPLETED DATE/TIME: 08/02/2018 5:17 pm REASON FOR STUDY: chest pain; please time for thoracic aorta eval COMPARISON: None. TECHNIQUE: CT scan of the chest performed using helical scanning technique with dynamic intravenous contrast injection. Images reviewed with lung, soft tissue and bone windows. Reconstructed coronal and sagittal MPR images reviewed. Additional 3 dimensional post-processing performed to develop Maximal Intensity Projection images ([place] P). All images stored on PACS. All CT scanners at this facility use dose modulation, iterative reconstruction, and/or weight based d osing when appropriate to reduce radiation dose to as low as reasonably achievable (ALARA). [facility]: Dose Right [facility]: CareDose [facility]: Dose Right [facility]: Teradose 4D [facility]: Starbates CONTRAST TYPE AND DOSE: contrast/concentration: Isovue 350.00 mg/ml; Total Contrast Delivered: 75.0 ml; Total Saline Delivered: 70.0 ml Contrast bolus optimized for the pulmonary arteries. Not diagnostic for the aorta. RENAL FUNCTION: BUN 19 creatinine 1.25 RADIATION DOSE: CT Rad equipment meets quality standard of care and radiation dose reduction techniq ues were employed. CTDIvol: 5.0 - 29.8 mGy. DLP: 626 mGy-cm. . LIMITATIONS: None. FINDINGS: LUNGS AND PLEURA: 2 cm mass in the posterior aspect of the left upper lobe abutting the ma roula fissure. Mild basilar subsegmental atelectasis. No pneumothorax. No pleural effusions or pleu ral calcifications. AORTA AND GREAT VESSELS: No aneurysm. Contrast bolus not optimized for the aorta. HEART: No pericardial effusion. No significant coronary artery calcifications. PULMONARY ARTERIES: No emboli visualized in the main pulmonary arteries or the segmental branches. HILAR AND MEDIASTINAL STRUCTURES: Enlarged mediastinal and left hilar nodes, largest node measures 2. 8 cm in the AP window. HARDWARE: None in the chest. UPPER ABDOMEN: No significant findings. Limited exam. THYROID AND OTHER SOFT TISSUES: No masses. No adenopathy. BONES: No acute finding. 3D MIPS: Confirm above findings. OTHER: No other significant finding. IMPRESSION: 2 cm mass in the posterior aspect of the left upper lobe abutting the major fissure. Enl arged mediastinal and left hilar nodes, largest node measures 2.8 cm in the AP window. COMMENT: Quality ID # [id number]: Final reports with documentation of one or more dose reduction techniques (e.g., Automated exposure control, adjustment of the mA and/or kV according to patient size, use of iterative reconstruction technique) TECHNICAL DOCUMENTATION: JOB ID: [id number] [place]-72 2010 [employer]- All Rights Reserved Reading location - IP/workstation name: [email or web address] [email or web address]
[2018-08-02] MEDS ORDERED: APIXABAN 5 MG TABLET PO SCH (18:00)
--- NOTE | 2018-08-02 18:14 | PDOC PROGRESS REPORT ---
Subjective Progress Note for:: 08/02/18 Subjective:: MARIE MELGAR is a 58 year old male with a past medical history significant for recent non-STEMI (April 2018), hypertension, GERD, osteoarthritis, tobacco abuse, substance abuse who was admitted 08/01/18 for left periorbital pain/ headache, and chest pain for cardiac rule out. The patient was seen on afternoon rounds. He was resting in bed on room air; maintaining oxygen saturations while lying supine. The patient was in obvious discomfort; holding an ice pack to his left eye. He reports that his primary complaint remains his eye discomfort and he expresses irritation that we have been so focused on his chest discomfort. The patient has told both myself and nursing multiple times that he believes his chest discomfort to be related to reflux. He denies fever, chills, palpitations, dyspnea, orthopnea, nausea and vomiting. Approximately 1 hour after visiting with the patient, received a nurse call with report of new onset atrial fibrillation with RVR. Atrial fibrillation was confirmed by EKG. The patient was provided diltiazem IV push x1 without effect. He was subsequently transferred to [facility] and placed on a diltiazem drip and full dose Lovenox. Reason For Visit: CHEST PAIN Physical Exam Vital Signs: Temp Pulse Resp BP Pulse Ox 98.5 F 97 16 144/78 H 96 08/02/18 15:37 08/02/18 15:37 08/02/18 15:37 08/02/18 15:37 08/02/18 15:37 Intake & Output 08/01/18 08/02/18 08/03/18 06:59 06:59 06:59 Intake Total 118 Balance 118 Weight 86.7 kg General appearance: PRESENT: no acute distress, cooperative, well-developed, well-nourished, other - Obvious discomfort Head exam: PRESENT: atraumatic, normocephalic Eye exam: PRESENT: conjunctiva pink, EOMI, PERRLA, other - No orbital pain on discomfort.. ABSENT: conjunctival injection, nystagmus, periorbital swelling, scleral icterus Ear exam: PRESENT: normal external ear exam Mouth exam: PRESENT: moist, tongue midline Neck exam: ABSENT: carotid bruit, JVD, lymphadenopathy, thyromegaly Respiratory exam: PRESENT: clear to auscultation dong, symmetrical, unlabored. ABSENT: rales, rhonchi, wheezes Cardiovascular exam: PRESENT: RRR, +S1, +S2. ABSENT: diastolic murmur, rubs, systolic murmur Pulses: PRESENT: normal dorsalis pedis pul Vascular exam: PRESENT: normal capillary refill GI/Abdominal exam: PRESENT: normal bowel sounds, soft. ABSENT: distended, guarding, mass, organolmegaly, rebound, tenderness Rectal exam: PRESENT: deferred Extremities exam: PRESENT: full ROM. ABSENT: calf tenderness, clubbing, pedal edema Neurological exam: PRESENT: alert, awake, oriented to person, oriented to place , oriented to time, oriented to situation, CN II-XII grossly intact. ABSENT: motor sensory deficit Psychiatric exam: PRESENT: agitated, appropriate affect, normal mood. ABSENT: homicidal ideation, suicidal ideation Skin exam: PRESENT: dry, intact, warm. ABSENT: cyanosis, rash Results Laboratory Results: 08/02/18 04:23 08/02/18 15:25 08/02/18 08/02/18 08/02/18 04:23 04:23 15:25 WBC 12.7 H RBC 4.65 Hgb 13.6 Hct 38.6 MCV 83 MCH 29.3 MCHC 35.2 RDW 16.2 H Plt Count 393 Sodium 136.3 L Potassium 4.8 D Chloride 105 Carbon Dioxide 19 L Anion Gap 12 BUN 15 Creatinine 1.14 Est GFR ( Amer) > 60 Est GFR (Non-Af Amer) > 60 Glucose 126 H Calcium 9.6 Magnesium C-Reactive Protein 53.0 H TSH 1.08 08/02/18 15:25 WBC RBC Hgb Hct MCV MCH MCHC RDW Plt Count Sodium 139.1 Potassium 4.5 Chloride 105 Carbon Dioxide 17 L Anion Gap 17 BUN 19 Creatinine 1.25 Est GFR ( Amer) > 60 Est GFR (Non-Af Amer) 59 L Glucose 131 H Calcium 10.4 H Magnesium 2.3 C-Reactive Protein TSH 08/01/18 08/01/18 14:49 19:30 Troponin I < 0.012 < 0.012 Impressions: Chest X-Ray 08/01/18 09:34 IMPRESSION: NO ACUTE RADIOGRAPHIC FINDING IN THE CHEST. Head CT 08/01/18 10:13 IMPRESSION: 1. No acute intracranial event. 2. Retention cyst or polyps in the maxillary sinuses and a single left ethmoid air cell. EVIDENCE OF ACUTE STROKE: NO. Chest/Abdomen CTA 08/02/18 15:34 IMPRESSION: 2 cm mass in the posterior aspect of the left upper lobe abutting the major fissure. Enlarged mediastinal and left hilar nodes, largest node measures 2.8 cm in the AP window. Assessment & Plan - Diagnosis (1) Chest pain Qualifiers: Chest pain type: unspecified Qualified Code(s): R07.9 - Chest pain, unspecified Is this a current diagnosis for this admission?: Yes Plan: The patient complains of vague substernal/epigastric chest pain described as pressure that is nonradiating and not associated with symptoms headache, dizziness, dyspnea, diaphoresis, nausea. The patient reports that the pain is most similar to previous episodes of reflux. However, he is noted to have had a recent non-STEMI. EKG does demonstrate T-wave inversion of leads II, 3, aVF, 4, 5, and 6 that is new compared to his previous EKG in April (however, it is notable that the previous EKG was obtained during the early acute phase of his DE and we do not have a post cath EKG to compare to); ST segment changes. Chest x-ray is benign. Troponins negative x3 Lipid panel (records from primary care provider's office reviewed) is acceptable. We received his records from [facility]; echocardiogram was benign, Lead Ramp Agent did confirm that the patient was found to have a 10-20% blockage of one vessel. Non-STEMI at that time was determined to be related to vasospasm. The patient is admitted on continuous cardiac telemetry. He is placed on daily aspirin and statin therapy. He is placed on Pepcid twice daily for reflux. Will trial GI cocktail per patient request. SL nitro tabs as needed for pain; IV morphine for unrelieved chest pain. (2) Eye pain Qualifiers: Laterality: left Qualified Code(s): H57.12 - Ocular pain, left eye Is this a current diagnosis for this admission?: Yes Plan: Left periorbital pain and presence of elevated said rate and CRP; somewhat concerning for GCA although remaining exam does not support. Patient denies vision changes. Head CT is negative. Slit-lamp per ED provider is benign. Patient has been provided Solu-Medrol 125 mg IV by the ED provider. Sed rate elevated to 78; trending upward to 87 today. CRP elevated to 37.5; trended upward to 53. MRA of the head is pending. Optometry has been consulted; spoke with Dr. Delgado by phone. His exam last night was benign; low suspicion for GCA. Recommends refresh eyedrops and outpatient follow-up. We will continue p.o. prednisone. [place] as needed for pain. (3) Hypertension Qualifiers: Hypertension type: essential hypertension Qualified Code(s): I10 - Essential (primary) hypertension Is this a current diagnosis for this admission?: Yes Plan: The patient's home medications are continued; amlodipine 10 mg daily and lisinopril 40 mg daily. (4) GERD (gastroesophageal reflux disease) Is this a current diagnosis for this admission?: Yes Plan: Pepcid twice daily. (5) Osteoarthritis Qualifiers: Osteoarthritis location: unspecified site Is this a current diagnosis for this admission?: Yes Plan: Avoid NSAIDs secondary to daily aspirin therapy and reflux symptoms. Tylenol as needed. Nonpharmacological intervention such as heat, ice, position change, increased ambulation. The patient is currently being provided oxycodone as needed for his ocular pain which should be more than satisfactory for his osteoarthritis. (6) History of DE (myocardial infarction) Is this a current diagnosis for this admission?: Yes Plan: Patient was transferred to [facility] in April 2018 with a non-STEMI. Per patient report, he underwent cardiac catheterization at that time and was reported to have a 10-20% blockage. Will request records. Remaining plan as above. (7) Tobacco abuse Is this a current diagnosis for this admission?: Yes Plan: Smoking cessation is encouraged; nicotine replacement therapies are provided. (8) Atrial fibrillation with RVR Is this a current diagnosis for this admission?: Yes Plan: The patient was noted to convert into atrial fibrillation with RVR; initially heart rate was 120-140. EKG confirmed atrial fibrillation. Stat BMP, magnesium, TSH were benign. Chest CTA was obtained secondary to elevated sed rate and concern for arteritis ; negative for pulmonary embolus, thoracic dissection/aneurysm. Did incidentally find a 2 cm posterior left upper lobe mass with enlarged mediastinal and hilar nodes; largest measuring 2.8 cm. The patient's atrial fibrillation RVR was non-responsive to diltiazem 25 mg IV push. He was transferred to [facility] and subsequently placed on a diltiazem drip. Have initiated full dose Lovenox for prophylaxis; chads vas score 2. Will need to discuss long-term anticoagulant options with the patient tomorrow. Continue daily aspirin and statin therapy. (9) Lung mass Is this a current diagnosis for this admission?: Yes Plan: CT of the chest revealed a 2 cm mass in the posterior aspect of the left upper lobe with enlarged mediastinal and left hilar nodes; largest node measuring 2.8 cm. Patient is known tobacco user. Will need to discuss with the patient abnormal CT findings and recommendation for biopsy; may benefit from pulmonology or hematology/oncology referral. - Time Time Spent with patient: 35 or more minutes Medications reviewed and adjusted accordingly: Yes Anticipated discharge: Home
[2018-08-02] MEDS: DILTIAZEM HCL/D5W 125 MG/125 ML RTUINJ IV PRN ×2 (18:28→18:54)
--- NOTE | 2018-08-02 18:46 | RADIOLOGY REPORT (SQ) ---
EXAM DESCRIPTION: MRA HEAD WITHOUT COMPLETED DATE/TIME: 08/02/2018 5:40 pm REASON FOR STUDY: giant cell arteritis COMPARISON: None. TECHNIQUE: Axial 3-D [id number] acquisition imaging performed through the brain in the area of t he [place] of [place]. Images reformatted using 3-D MIPS. LIMITATIONS: None. FINDINGS: SOURCE IMAGES: No unexpected findings on source images. No large masses. 3-D MIP: No aneurysm. No occlusions. No significant stenosis. OTHER: No other significant finding. IMPRESSION: No aneurysm. No occlusions. TECHNICAL DOCUMENTATION: JOB ID: [id number] [place]-72 2010 [employer]- All Rights Reserved Reading location - IP/workstation name: [email or web address]
[2018-08-02] MEDS: DILTIAZEM HCL 60 MG TABLET PO SCH (21:01)
[2018-08-02] MEDS: ATORVASTATIN CALCIUM 40 MG TABLET PO SCH (21:01)
[2018-08-02] MEDS: HYDROCODONE/ACETAMINOPHEN 7.5-325 MG TABLET PO PRN (21:06)
[2018-08-02] MEDS: ENOXAPARIN SODIUM INJ 100 MG/1 ML DISP.SYRIN SUBCUT SCH (23:39)
[2018-08-03] MEDS: DILTIAZEM HCL 60 MG TABLET PO SCH ×2 (03:04→05:33)
[2018-08-03] MEDS: HYDROCODONE/ACETAMINOPHEN 7.5-325 MG TABLET PO PRN ×2 (03:08→09:20)
[2018-08-03 05:50] LABS: HEMATOCRIT 37.5 % (37.9-51.0); HEMOGLOBIN 13.2 g/dL (13.5-17.0); MEAN CORPUSCULAR HEMOGLOBIN 29.1 pg (27.0-33.4); MEAN CORPUSCULAR HGB CONC 35.2 g/dL (32.0-36.0); MEAN CORPUSCULAR VOLUME 83 fl (80-97); PLATELET COUNT 315 10^3/uL (150-450); RED BLOOD COUNT 4.55 10^6/uL (4.35-5.55); RED CELL DISTRIBUTION WIDTH 16.4 % (11.5-14.0); WHITE BLOOD COUNT 21.4 10^3/uL (4.0-10.5)
[2018-08-03 06:02] LABS: APPEARANCE,URINE CLEAR; BILIRUBIN,URINE NEGATIVE (NEGATIVE); COLOR,URINE STRAW; GLUCOSE, URINE NEGATIVE (NEGATIVE); KETONES,URINE NEGATIVE (NEGATIVE); LEUKOCYTE ESTERASE,URINE NEGATIVE (NEGATIVE); NITRITE,URINE NEGATIVE (NEGATIVE); PROTEIN,URINE NEGATIVE (NEGATIVE); URINE SPECIFIC GRAVITY 1.013; UROBILINOGEN,URINE NEGATIVE mg/dL (<2.0)
[2018-08-03 06:16] LABS: ANION GAP 8 (5-19); BLOOD UREA NITROGEN 20 mg/dL (7-20); CALCIUM 9.3 mg/dL (8.4-10.2); CARBON DIOXIDE 22 mmol/L (22-30); CHLORIDE 107 mmol/L (98-107); GLUCOSE 108 mg/dL (75-110); POTASSIUM 4.1 mmol/L (3.6-5.0); SODIUM 137.4 mmol/L (137-145)
[2018-08-03] MEDS: DOCUSATE SODIUM 100 MG CAPSULE PO SCH (09:15)
[2018-08-03] MEDS: PREDNISONE 20 MG TABLET PO SCH (09:16)
[2018-08-03] MEDS: ENOXAPARIN SODIUM INJ 100 MG/1 ML DISP.SYRIN SUBCUT SCH (09:16)
[2018-08-03] MEDS: ASPIRIN 81 MG TABLET, ENT COATED PO SCH (09:16)
[2018-08-03] MEDS: POLYETHYLENE GLYCOL 3350 POWDER 17 GM/1 PACKET PO SCH (09:17)
[2018-08-03] MEDS: NICOTINE 14 MG/24 HR PATCH.TD24 TD SCH (09:17)
[2018-08-03] MEDS: AMLODIPINE BESYLATE 10 MG TABLET PO SCH (09:18)
[2018-08-03] MEDS: FAMOTIDINE 20 MG TABLET PO SCH (09:19)
[2018-08-03] MEDS: LISINOPRIL 10 MG TABLET PO SCH (09:19)
[2018-08-03] MEDS: CARBOXYMETHYLCELLULOSE SOD 0.5% 0.4 ML DROPERETTE OU SCH (09:22)
[2018-08-03 11:07] VITALS: BP 147/94
[2018-08-03] MEDS ORDERED: DILTIAZEM HCL 60 MG TABLET PO SCH (20:30)
--- NOTE | 2018-08-03 20:53 | EKG REPORT ---
SEVERITY:- ABNORMAL ECG - ATRIAL FIBRILLATION BORDERLINE T ABNORMALITIES, DIFFUSE LEADS : Confirmed by: Nisha Corea MD 03-Aug-2018 20:52:34
--- NOTE | 2018-08-03 20:53 | EKG REPORT ---
SEVERITY:- NORMAL ECG - SINUS RHYTHM : Confirmed by: Nisha Corea MD 03-Aug-2018 20:52:30
--- NOTE | 2018-08-07 16:24 | PDOC DISCHARGE SUMMARY ---
General - Admit/Disc Date/PCP Admission Date/Primary Care Provider: 08/01/18 12:52 FRANCINE LUCERODO Discharge Date: 08/03/18 - Discharge Diagnosis (1) Chest pain Is this a current diagnosis for this admission?: Yes Summary: The patient was admitted with complaint of vague substernal/epigastric chest pain described as pressure that is nonradiating and not associated with symptoms headache, dizziness, dyspnea, diaphoresis, nausea. The patient reports that the pain is most similar to previous episodes of reflux. However, he is noted to have had a recent non-STEMI. EKG does demonstrate T-wave inversion of leads II, 3, aVF, 4, 5, and 6 that is new compared to his previous EKG in April (however, it is notable that the previous EKG was obtained during the early acute phase of his PR and we do not have a post cath EKG to compare to); there were no ST segment changes. Chest x-ray is benign. Troponins negative x3 Lipid panel (records from primary care provider's office reviewed) is acceptable. We received his records from [facility]; echocardiogram was benign, Field Recorder did confirm that the patient was found to have a 10-20% blockage of one vessel. Non-STEMI at that time was determined to be related to vasospasm. He was placed on daily aspirin and statin therapy. While on telemetry, the patient was noted to convert from NSR to Afib with RVR. He was treated with diltiazem and subsequent conversion back to NSR. It is likely that his chest discomfort was rhythm awareness during episodes of PAF. (2) Eye pain Is this a current diagnosis for this admission?: Yes Summary: Left periorbital pain and presence of elevated said rate and CRP; somewhat concerning for GCA although remaining exam does not support. Patient denies vision changes. Head CT is negative; but did incidentally find nasal polyps of the left maxillary sinus. Slit-lamp per ED provider is benign. Patient has been provided Solu-Medrol 125 mg IV by the ED provider. Sed rate elevated to 78; trending upward to 87 today. CRP elevated to 37.5; trended upward to 53. MRI/MRA of the head was negative for aneurisms and occlusions. Optometry has been consulted; spoke with Dr. Delgado by phone. His exam last night was benign; low suspicion for GCA. Recommends refresh eye drops and outpatient follow-up in 1-2 weeks. Although there was low suspicion for GCA, the patient reported the greatest relief following administration of steroids. Therefore, he was provided a prednisone taper at discharge. He is recommended to follow up with ENT to evaluate the maxillary sinus polyps as the potential cause of his left periorbital discomfort and associated headache. (3) Hypertension Is this a current diagnosis for this admission?: Yes Summary: The patient's lisinopril is continued at discharge. Amlodipine is discontinued. New prescription for diltiazem ER 120 mg BID is provided to achieve acceptable blood pressures and maintain rate control. (4) GERD (gastroesophageal reflux disease) Is this a current diagnosis for this admission?: Yes (5) Osteoarthritis Is this a current diagnosis for this admission?: Yes Summary: Recommend the patient avoid NSAIDs secondary to daily aspirin therapy and reflux symptoms. May utilize Tylenol, as needed, and nonpharmacological intervention such as heat , ice, position change, increased ambulation. (6) History of PR (myocardial infarction) Is this a current diagnosis for this admission?: Yes Summary: We received his records from [facility]; echocardiogram was benign, Field Recorder did confirm that the patient was found to have a 10-20% blockage of one vessel. Non-STEMI at that time was determined to be related to vasospasm. Continue daily aspirin and statin therapy. (7) Tobacco abuse Is this a current diagnosis for this admission?: Yes Summary: Smoking cessation was encouraged; he was provided a prescription for nicotine patches at discharge. (8) Atrial fibrillation with RVR Is this a current diagnosis for this admission?: Yes Summary: The patient was noted to convert into atrial fibrillation with RVR; initially heart rate was 120-140. EKG confirmed atrial fibrillation. Stat BMP, magnesium, TSH were benign. Chest CTA was obtained secondary to elevated sed rate and concern for arteritis ; negative for pulmonary embolus, thoracic dissection/aneurysm. Did incidentally find a 2 cm posterior left upper lobe mass with enlarged mediastinal and hilar nodes; largest measuring 2.8 cm. The patient's atrial fibrillation RVR was non-responsive to diltiazem 25 mg IV push, therefore he was upgraded to IMCU and placed on a diltiazem drip and full dose Lovenox. He converted back into NSR several hours later. He was transitioned to p.o. diltiazem and maintained NSR. [id number] score 2 (2.2% yearly CVA risk). We discussed the recommendation for chronic anticoagulation for stroke prevention. The patient stated that he would appreciate prescription at discharge, but would "need to think about it more" prior to starting the medication. He was strongly encouraged to follow up with his primary care provider to discuss risks/benefits of chronic anticoagulation. He was recommended to continue daily aspirin and statin therapy. (9) Lung mass Is this a current diagnosis for this admission?: Yes Summary: Chest CTA revealed a 2 cm mass in the posterior aspect of the left upper lobe with enlarged mediastinal and left hilar nodes; largest node measuring 2.8 cm. Patient is known tobacco user. Discussed the abnormal findings with the patient. He was advised to follow up with his PCP to discuss CT findings and to obtain the appropriate referrals for outpatient work up. - Additional Information Resuscitation Status: Full Code Discharge Diet: Cardiac Discharge Activity: Activity As Tolerated, Balance Activity w/Rest Prescriptions: Apixaban [Eliquis 5 mg Tablet] 5 mg PO BID #60 tablet Carboxymethylcellulose Sodium [Refresh Plus 0.5% Oph Soln 0.4 ml Droperette] 1 drop OU QID #1 droperette Diltiazem HCl [Diltiazem 12Hr ER] 120 mg PO BID #60 cap.er.12h Fluticasone Propionate [Flonase Nasal [place] 50 Mcg/[place] 16 gm] 2 sprays NASL Q12 #1 inhaler Hydrocodone/Acetaminophen [[place] 7.5-325 mg Tablet] 1 tab PO Q6HP PRN #18 tablet PRN Reason: Nicotine [Nicoderm 14 mg/24 Hr Transdermal Patch] 1 each TD DAILY #30 patch.td24 Prednisone [Deltasone 20 mg Tablet] 20 mg PO ASDIR PRN #14 tablet PRN Reason: Home Medications: Atorvastatin Calcium [Lipitor 40 mg Tablet] 40 mg PO QHS 08/01/18 Lisinopril [Prinivil 40 mg Tablet] 40 mg PO DAILY 08/01/18 Polyethylene Glycol 3350 [Miralax Powder 17 gm/Packet] 1 packet PO DAILY Sildenafil Citrate [Viagra] 100 mg PO PRN PRN 08/01/18 Acetaminophen [Tylenol 325 mg Tablet] 650 mg PO Q4HP PRN tablet 08/03/18 Apixaban [Eliquis 5 mg Tablet] 5 mg PO BID #60 tablet 08/03/18 Aspirin [Ecotrin 81 mg EC Tablet] 81 mg PO DAILY tabec 08/03/18 Carboxymethylcellulose Sodium [Refresh Plus 0.5% Oph Soln 0.4 ml Droperette] 1 drop OU QID #1 droperette 08/03/18 Diltiazem HCl [Diltiazem 12Hr ER] 120 mg PO BID #60 cap.er.12h 08/03/18 Fluticasone Propionate [Flonase Nasal [place] 50 Mcg/[place] 16 gm] 2 sprays NASL Q12 #1 inhaler 08/03/18 Hydrocodone/Acetaminophen [[place] 7.5-325 mg Tablet] 1 tab PO Q6HP PRN #18 tablet 08/03/18 Nicotine [Nicoderm 14 mg/24 Hr Transdermal Patch] 1 each TD DAILY #30 patch.td24 08/03/18 Prednisone [Deltasone 20 mg Tablet] 20 mg PO ASDIR PRN #14 tablet 08/03/18 History of Present Illness History of Present Illness: MARIE MELGAR is a 58 year old male with a past medical history significant for recent non-STEMI (April 2018), hypertension, GERD, osteoarthritis, tobacco abuse, substance abuse who presented to the emergency department today from his primary care provider's office via EMS with report of chest pain. Upon arrival , the patient reported that his primary concern was severe left eye pain that has been present for at least 1 week and gradually worsening. He denies vision loss. Pain is nonradiating, not worsened by ocular movements or blinking. He denies injury to the eye. He does report that the pain increases slightly with talking and chewing. Denies previous similar discomfort. The patient does endorse slight substernal/epigastric pain described as vague pressure is slightly migratory but does not radiate to his back or shoulder and is not associated with dizziness, dyspnea, diaphoresis, or nausea. He reports that the pain is more similar to previous episodes of reflux that responded well to GI cocktails and not like the chest pain he experienced during his recent PR. He reports that he had a cardiac cath completed while at [facility] in April that was negative; "only 10% blockage" with recommendations for cardiac rehab which she has not yet begun. He expressed frustration that the ED and hospital staff are only interested in his chest pain when his "real problem" his pain. Evaluation the emergency department revealed an elevated ESR (78) and CRP (37.5) , and otherwise unremarkable lab work including normal troponin. EKG does reveal T-wave inversion of leads II, 3, aVF, 4, 5, and 6 that is new compared to his previous EKG in April (however, it is notable that the previous EKG was obtained during the early acute phase of his PR and we do not have a post cath EKG to compare to), benign chest x-ray, and normal head CT. The patient was initiated on IV Solu-Medrol for presumed temporal arteritis and subsequently referred to the hospitalist service for chest pain rule out. Physical Exam Vital Signs: Temp Pulse Resp BP Pulse Ox 98.4 F 53 L 18 147/94 H 98 08/03/18 11:05 08/03/18 11:05 08/03/18 11:05 08/03/18 11:05 08/03/18 11:05 General appearance: PRESENT: no acute distress, well-developed, well-nourished - overweight Head exam: PRESENT: atraumatic, normocephalic Eye exam: PRESENT: conjunctiva pink, EOMI, PERRLA. ABSENT: scleral icterus Ear exam: PRESENT: normal external ear exam Mouth exam: PRESENT: moist, tongue midline Neck exam: ABSENT: carotid bruit, JVD, lymphadenopathy, thyromegaly Respiratory exam: PRESENT: clear to auscultation dong. ABSENT: rales, rhonchi, wheezes Cardiovascular exam: PRESENT: RRR, +S1, +S2. ABSENT: diastolic murmur, rubs, systolic murmur Pulses: PRESENT: normal dorsalis pedis pul Vascular exam: PRESENT: normal capillary refill GI/Abdominal exam: PRESENT: normal bowel sounds, soft. ABSENT: distended, guarding, mass, organolmegaly, rebound, tenderness Rectal exam: PRESENT: deferred Extremities exam: PRESENT: full ROM. ABSENT: calf tenderness, clubbing, pedal edema Neurological exam: PRESENT: alert, awake, oriented to person, oriented to place , oriented to time, oriented to situation, CN II-XII grossly intact. ABSENT: motor sensory deficit Psychiatric exam: PRESENT: appropriate affect, normal mood. ABSENT: homicidal ideation, suicidal ideation Skin exam: PRESENT: dry, intact, warm. ABSENT: cyanosis, rash Results Laboratory Results: 08/03/18 05:31 08/03/18 05:31 08/01/18 08/01/18 14:49 19:30 Troponin I < 0.012 < 0.012 Impressions: Chest X-Ray 08/01/18 09:34 IMPRESSION: NO ACUTE RADIOGRAPHIC FINDING IN THE CHEST. Head CT 08/01/18 10:13 IMPRESSION: 1. No acute intracranial event. 2. Retention cyst or polyps in the maxillary sinuses and a single left ethmoid air cell. EVIDENCE OF ACUTE STROKE: NO. Brain MRI with MRA 08/02/18 00:00 IMPRESSION: No aneurysm. No occlusions. Chest/Abdomen CTA 08/02/18 15:34 IMPRESSION: 2 cm mass in the posterior aspect of the left upper lobe abutting the major fissure. Enlarged mediastinal and left hilar nodes, largest node measures 2.8 cm in the AP window. Qualifiers - * PATIENT BEING DISCHARGED WITH ANY OF THE FOLLOWING DIAGNOSIS: No Plan Discharge Plan: Follow-up with the primary care provider within 1 week; recommend that your primary care provider initiate any necessary referrals or biopsy testing to assess the lung nodule noted on your Chest CAT scan. ENT follow up in 4-6 weeks. Follow up with the Opthamologist within 1-2 weeks. Time Spent: Less than 30 Minutes
== END 2018-08-03 12:43 | disposition home or self-care (01) ==
LOC: ER 09:32 → EH 12:52 → 5 15:34 → 3W 08-02 17:01
PROVIDERS: ADMIT Internal Medicine; ATTEND Internal Medicine
PROC: HZ31ZZZ Individual Counseling for Substance Abuse Treatment, Behavioral (ICD-10-PCS; principal; 2018-08-01)
DX: R07.2 Precordial pain (principal); R10.13 Epigastric pain; I48.91 Unspecified atrial fibrillation; H57.12 Ocular pain, left eye; I25.2 Old myocardial infarction; R79.82 Elevated C-reactive protein (CRP); R70.0 Elevated erythrocyte sedimentation rate; J33.8 Other polyp of sinus; R51 Headache; I10 Essential (primary) hypertension; K21.9 Gastro-esophageal reflux disease without esophagitis; M19.90 Unspecified osteoarthritis, unspecified site; R91.8 Other nonspecific abnormal finding of lung field; R59.0 Localized enlarged lymph nodes; E66.3 Overweight; F17.210 Nicotine dependence, cigarettes, uncomplicated; R45.1 Restlessness and agitation; H26.9 Unspecified cataract; H04.123 Dry eye syndrome of bilateral lacrimal glands; I25.10 Atherosclerotic heart disease of native coronary artery without angina pectoris; R09.89 Other specified symptoms and signs involving the circulatory and respiratory systems; Z68.31 Body mass index [BMI] 31.0-31.9, adult; Z79.82 Long term (current) use of aspirin
CPT/HCPCS: 93005 ×3; 96376; 99285; 96374; 96375; 36415 ×3; 82553; 82550; 83735; 84443; 85025; 85027 ×2; 85652 ×2; 86140 ×2; 80048 ×2; 80053; 81001; 84484; 70544; 71045; 70450; 71275; 93010 ×3; 99406; G0378 ×4; J1644 ×2; J3490 ×8; J2930; J2270; J7512 ×2; J2405; J1650 ×2

== ENCOUNTER 2018-08-13 00:48 | Emergency (ER) | payer OTHER ==
--- NOTE | 2018-08-13 01:12 | ER Document Report ---
ED Cardiac - General Stated Complaint: CHEST PAIN Time Seen by Provider: 08/13/18 00:58 Notes: Patient is a 58-year-old male that comes to the emergency department for chief complaint of chest pain. He comes by EMS, was given 324 mg of aspirin and 2 sublingual nitroglycerin. He states his pain is improved. He states that he has had chest pain intermittently since he was discharged on 08/07/2018, he started noticing it more when he was lying down watching TV late afternoon today. He denies nausea or vomiting, cough, fever or chills. Pain is in the center of his chest without radiation. Patient was admitted here for possible temporal arteritis, this was not specifically diagnosed but he was still sent home on prednisone which she has completed. He is on Eliquis for history of atrial fibrillation, he reportedly had an GA back in April of this year but he had a negative cardiac catheterization with only 10% blockage and no stent was placed. He continues to smoke. He has a history of marijuana and cocaine abuse , he denies using cocaine for over 6 months. TRAVEL OUTSIDE OF THE [place] IN LAST 30 DAYS: No - Related Data Allergies/Adverse Reactions: meloxicam Allergy (Intermediate, Verified 04/20/18 17:02) Dizziness pentazocine Adverse Reaction (Intermediate, Verified 04/20/18 17:02) LIGHTHEADEDNESS metoclopramide Adverse Reaction (Verified 04/20/18 17:02) UNKNOWN tamsulosin Adverse Reaction (Verified 04/20/18 17:02) UNKNOWN Past Medical History - General Information source: Patient - Social History Smoking Status: Former Smoker Drug Abuse: Cocaine, Marijuana Lives with: Alone Family History: Reviewed & Not Pertinent - Past Medical History Cardiac Medical History: Reports: Hx Heart Attack - Non-STEMI April 2016, Hx Hypertension Denies: Hx Congestive Heart Failure, Hx Coronary Artery Disease Pulmonary Medical History: Reports: Hx Pneumonia Denies: Hx Asthma, Hx Bronchitis, Hx COPD Neurological Medical History: Denies: Hx Cerebrovascular Accident, Hx Seizures Renal/ Medical History: Denies: Hx Peritoneal Dialysis GI Medical History: Reports: Hx Gastroesophageal Reflux Disease. Denies: Hx Ulcer Musculoskeletal Medical History: Reports Hx Arthritis - osteoarthritis - Immunizations Hx Diphtheria, Pertussis, Tetanus Vaccination: No - UNSURE Review of Systems - Review of Systems Constitutional: No symptoms reported EENT: No symptoms reported Cardiovascular: See HPI Respiratory: No symptoms reported Gastrointestinal: See HPI Genitourinary: No symptoms reported Male Genitourinary: No symptoms reported Musculoskeletal: No symptoms reported Skin: No symptoms reported Hematologic/Lymphatic: No symptoms reported Neurological/Psychological: No symptoms reported Physical Exam - Vital signs Vitals: Resp 13 08/13/18 01:03 - Notes Notes: GENERAL: Alert, interacts well. No acute distress. HEAD: Normocephalic, atraumatic. EYES: Pupils equal, round, and reactive to light. Extraocular movements intact. ENT: Oral mucosa moist, tongue midline. NECK: Full range of motion. Supple. Trachea midline. LUNGS: Clear to auscultation bilaterally, no wheezes, rales, or rhonchi. No respiratory distress. HEART: Regular rate and rhythm. No murmur ABDOMEN: Soft, non-tender. Non-distended. Bowel sounds present in all 4 quadrants. GENITOURINARY: Deferred EXTREMITIES: Moves all 4 extremities spontaneously. No edema, normal radial and dorsalis pedis pulses bilaterally. No cyanosis. BACK: no cervical, thoracic, lumbar midline tenderness. No saddle anesthesia, normal distal neurovascular exam. NEUROLOGICAL: Alert and oriented x3. Normal speech. [cranial nerves II through XII grossly intact]. PSYCH: Normal affect, normal mood. SKIN: Warm, dry, normal turgor. No rashes or lesions noted. Course - Re-evaluation Re-evalutation: EKG shows sinus bradycardia at a rate of 54, no T wave inversions or ST segment changes in consecutive leads. Patient is not hypotensive or tachycardic. He denies taking cocaine within the past 6 months. Chemistry unremarkable, initial troponin is negative. Chest x-ray unremarkable. When I help the patient up from a lying down position he belches. He has been on prednisone, he admits to having gastritis in the past, there does appear to be a reflux component. CBC shows mild leukocytosis as suspected with steroid use. Discussed with patient. Patient was given Carafate and Pepcid, afterwards he fell asleep. Well-appearing on reevaluation , sleeping but easily aroused. Second troponin is negative. There is discussed with Dr. Finley. Patient has had recent cardiac catheterization which was clear, he probably had a heart attack because of vascular spasm secondary to cocaine use. He was just admitted and had serial negative troponins. He has 2- troponins today with mainly gastrointestinal symptoms. He does not have any evidence of cocaine use on my evaluation. Recommendation is discharged with the treatment for gastritis, primary care follow-up, and strict return precautions. I discussed this in detail with patient, he states satisfaction and agreement with this plan. - Vital Signs Vital signs: Temp Pulse Resp BP Pulse Ox 19 115/64 97 08/13/18 04:01 08/13/18 04:01 08/13/18 04:01 - Laboratory Result Diagrams: 08/13/18 01:07 08/13/18 01:07 Laboratory results interpreted by me: 08/13/18 08/13/18 01:07 01:07 WBC 13.0 H RBC 4.07 L Hgb 11.8 L Hct 33.6 L RDW 16.6 H Absolute Neutrophils 8.3 H Sodium 136.1 L Carbon Dioxide 21 L ALT 76 H Creatine Kinase 32 L Albumin 3.2 L Discharge - Discharge Clinical Impression: Dyspepsia Chest pain Qualifiers: Chest pain type: unspecified Qualified Code(s): R07.9 - Chest pain, unspecified Condition: Stable Disposition: HOME, SELF-CARE Additional Instructions: Your workup at this time is reassuring. Your evaluation is most suggestive of gastrointestinal source of your symptoms, probably because of the recent prednisone. Take the Pepcid and Carafate as prescribed. Continue your other current medications. Continue to avoid recreational/street drugs. Return if you worsen including worsening pain, passing out, difficulty breathing , fever, vomiting, or any other concerning or worsening symptoms. Prescriptions: Famotidine [Pepcid 20 mg Tablet] 20 mg PO BID #20 tablet Sucralfate [Carafate 1 gm Tablet] 1 gm PO QID #20 tablet Referrals: FRANCINE LUCERO DO [Primary Care Provider] - Follow up as needed
[2018-08-13 01:21] LABS: ABSOLUTE BASOPHILS # (AUTO) 0.1 10^3/uL (0.0-0.2); ABSOLUTE EOSINOPHILS # (AUTO) 0.1 10^3/uL (0.0-0.6); ABSOLUTE LYMPHOCYTES (AUTO) 3.1 10^3/uL (0.5-4.7); ABSOLUTE MONOCYTES (AUTO) 1.4 10^3/uL (0.1-1.4); ABSOLUTE NEUT (AUTO) 8.3 10^3/uL (1.7-8.2); BASOPHILS % (AUTO) 0.8 % (0-2); EOSINOPHILS % (AUTO) 0.7 % (0-6); HEMATOCRIT 33.6 % (37.9-51.0); HEMOGLOBIN 11.8 g/dL (13.5-17.0); MEAN CORPUSCULAR HEMOGLOBIN 29.1 pg (27.0-33.4); MEAN CORPUSCULAR HGB CONC 35.3 g/dL (32.0-36.0); MEAN CORPUSCULAR VOLUME 83 fl (80-97); MONOCYTES % (AUTO) 10.9 % (3-13); PLATELET COUNT 377 10^3/uL (150-450); RED BLOOD COUNT 4.07 10^6/uL (4.35-5.55); RED CELL DISTRIBUTION WIDTH 16.6 % (11.5-14.0); SEGMENTED NEUTROPHILS % (AUTO) 63.6 % (42-78); TOTAL CELLS COUNTED % (AUTO) 100 %
[2018-08-13 01:34] LABS: ALANINE AMINOTRANSFERASE 76 U/L (21-72); ALBUMIN 3.2 g/dL (3.5-5.0); ALKALINE PHOSPHATASE 114 U/L (38-126); ANION GAP 9 (5-19); ASPARTATE AMINO TRANSFERASE 28 U/L (17-59); BILIRUBIN,DIRECT 0.4 mg/dL (0.0-0.4); BILIRUBIN,TOTAL 0.5 mg/dL (0.2-1.3); BLOOD UREA NITROGEN 14 mg/dL (7-20); CALCIUM 9.4 mg/dL (8.4-10.2); CARBON DIOXIDE 21 mmol/L (22-30); CHLORIDE 106 mmol/L (98-107); CREATINE KINASE 32 U/L (55-170); GLUCOSE 103 mg/dL (75-110); POTASSIUM 3.9 mmol/L (3.6-5.0); SODIUM 136.1 mmol/L (137-145); TOTAL PROTEIN 6.3 g/dL (6.3-8.2)
[2018-08-13 01:46] LABS: CREATINE KINASE MB 0.49 ng/mL (<4.55)
[2018-08-13 01:47] LABS: TROPONIN I < 0.012 ng/mL
--- NOTE | 2018-08-13 02:50 | RADIOLOGY REPORT (SQ) ---
EXAM DESCRIPTION: X-ray single view chest. CLINICAL HISTORY: 58 years Male, left-sided chest pain and history of heart attack and April COMPARISON: Prior chest x-ray performed on 08/01/2018 TECHNIQUE: Single portable view of the chest performed on 08/13/2018 at 2:07 AM FINDINGS: The lungs are well expanded and are clear. There is no evidence of a pneumothorax. The cardiac silhouette is normal in size and configuration. The mediastinal contours are normal. No acute osseous abnormality is identified. No focal soft tissue abnormalities are seen. Lines and tubes: None. IMPRESSION: No evidence of acute intrathoracic disease.
[2018-08-13] MEDS ORDERED: LIDOCAINE 2% VISCOUS SOLN 20 ML UDCUP PO ONE (02:55)
[2018-08-13] MEDS ORDERED: METOCLOPRAMIDE HCL ORAL SOLN 10 MG/10 ML UDCUP PO ONE (02:55)
[2018-08-13] MEDS ORDERED: MAG HYDROX/AL HYDROX/SIMETH SUSP 30 ML UDCUP PO ONE (02:55)
[2018-08-13] MEDS ORDERED: MORPHINE SULFATE 10 MG/ML INJ IV ONE (02:55)
--- NOTE | 2018-08-13 06:49 | EKG REPORT ---
SEVERITY:- BORDERLINE ECG - SINUS RHYTHM PROBABLE LEFT ATRIAL ABNORMALITY : Confirmed by: Lisette Bentley 13-Aug-2018 06:48:10
[2018-08-13 07:32] VITALS: BP 126/73
== END 2018-08-13 06:02 | disposition home or self-care (01) ==
LOC: ER 00:48
DX: R07.9 Chest pain, unspecified (principal); R10.13 Epigastric pain; R14.2 Eructation; R00.1 Bradycardia, unspecified; D72.829 Elevated white blood cell count, unspecified; F12.10 Cannabis abuse, uncomplicated; F14.11 Cocaine abuse, in remission; I10 Essential (primary) hypertension; I25.2 Old myocardial infarction; I48.91 Unspecified atrial fibrillation; Z79.01 Long term (current) use of anticoagulants; Z88.8 Allergy status to other drugs, medicaments and biological substances; Z87.891 Personal history of nicotine dependence; Z87.01 Personal history of pneumonia (recurrent)
CPT/HCPCS: 93005; 99285; 96374; 36415; 82553; 82550; 85025; 80053; 84484; 71045; 93010; J3490; J2270

== ENCOUNTER 2018-08-17 12:58 | Inpatient (IN) | payer OTHER ==
[2018-08-17] MEDS ORDERED: ASPIRIN 81 MG TABLET, CHEWABLE PO ONE (12:59)
--- NOTE | 2018-08-17 13:48 | RADIOLOGY REPORT (SQ) ---
EXAM DESCRIPTION: CHEST SINGLE VIEW COMPLETED DATE/TIME: 08/17/2018 1:19 pm REASON FOR STUDY: cp COMPARISON: 08/13/2018 EXAM PARAMETERS: NUMBER OF VIEWS: One view. TECHNIQUE: Single frontal radiographic view of the chest acquired. RADIATION DOSE: NA LIMITATIONS: None. FINDINGS: LUNGS AND PLEURA: No opacities, masses or pneumothorax. No pleural effusion. MEDIASTINUM AND HILAR STRUCTURES: No masses. Contour normal. HEART AND VASCULAR STRUCTURES: Heart normal in size. Normal vasculature. BONES: No acute findings. HARDWARE: None in the chest. OTHER: No other significant finding. IMPRESSION: 1. No significant interval changes since the prior study dated 08/13/2018. No acute fin dings. TECHNICAL DOCUMENTATION: JOB ID: [id number]- All Rights Reserved Reading location - IP/workstation name: [email or web address]
[2018-08-17 13:56] LABS: ABSOLUTE BASOPHILS # (AUTO) 0.1 10^3/uL (0.0-0.2); ABSOLUTE LYMPHOCYTES (AUTO) 2.3 10^3/uL (0.5-4.7); ABSOLUTE MONOCYTES (AUTO) 1.2 10^3/uL (0.1-1.4); ABSOLUTE NEUT (AUTO) 5.7 10^3/uL (1.7-8.2); BASOPHILS % (AUTO) 0.8 % (0-2); EOSINOPHILS % (AUTO) 0.2 % (0-6); HEMATOCRIT 34.1 % (37.9-51.0); HEMOGLOBIN 12.1 g/dL (13.5-17.0); LYMPHOCYTES % (AUTO) 24.5 % (13-45); MEAN CORPUSCULAR HEMOGLOBIN 28.9 pg (27.0-33.4); MEAN CORPUSCULAR HGB CONC 35.5 g/dL (32.0-36.0); MEAN CORPUSCULAR VOLUME 81 fl (80-97); PLATELET COUNT 347 10^3/uL (150-450); RED BLOOD COUNT 4.19 10^6/uL (4.35-5.55); RED CELL DISTRIBUTION WIDTH 16.7 % (11.5-14.0); SEGMENTED NEUTROPHILS % (AUTO) 61.5 % (42-78); TOTAL CELLS COUNTED % (AUTO) 100 %; WHITE BLOOD COUNT 9.3 10^3/uL (4.0-10.5)
--- NOTE | 2018-08-17 15:38 | ER Document Report ---
ED General - General Chief Complaint: Chest Pain Stated Complaint: CHEST PAIN Time Seen by Provider: 08/17/18 15:12 Information source: Patient Notes: Patient is a 58-year-old male with past medical history as recorded. He did endorse a possible non-ST elevation myocardial infarction in April but the cardiac catheterization report showed only 10-20% blockage and was found to be more vessel spasm. Patient also had complained of some headache, continued chest discomfort, and was seen and admitted here in July. At that time he had a CT of the chest abdomen and pelvis showing some mediastinal lymph nodes as well as an MRI MRA of the brain showing no acute lesions or aneurysms. Patient returns again with what he states is continued chest pain from his previous visit. He also states a mild frontal headache. He denies any blurry vision at this time. Patient denies any weakness but does state he has some numbness to the left upper lip and left fingertips. He states that this started yesterday. TRAVEL OUTSIDE OF THE [place] IN LAST 30 DAYS: No - HPI Onset: Other - See above Quality of pain: Other - See above Severity: Mild Pain Level: 1 Associated symptoms: Other - See above Exacerbated by: Denies Relieved by: Denies Similar symptoms previously: No Recently seen / treated by doctor: No - Related Data Allergies/Adverse Reactions: meloxicam Allergy (Intermediate, Verified 04/20/18 17:02) Dizziness pentazocine Adverse Reaction (Intermediate, Verified 04/20/18 17:02) LIGHTHEADEDNESS metoclopramide Adverse Reaction (Verified 04/20/18 17:02) UNKNOWN tamsulosin Adverse Reaction (Verified 04/20/18 17:02) UNKNOWN Past Medical History - Social History Smoking Status: Unknown if Ever Smoked Cigarette use (# per day): No Chew tobacco use (# tins/day): No Smoking Education Provided: No Family History: Reviewed & Not Pertinent - Past Medical History Cardiac Medical History: Reports: Hx Heart Attack - Non-STEMI April 2016, Hx Hypertension Denies: Hx Congestive Heart Failure, Hx Coronary Artery Disease Pulmonary Medical History: Reports: Hx Pneumonia Denies: Hx Asthma, Hx Bronchitis, Hx COPD Neurological Medical History: Denies: Hx Cerebrovascular Accident, Hx Seizures Renal/ Medical History: Denies: Hx Peritoneal Dialysis GI Medical History: Reports: Hx Gastroesophageal Reflux Disease. Denies: Hx Ulcer Musculoskeletal Medical History: Reports Hx Arthritis - osteoarthritis - Immunizations Hx Diphtheria, Pertussis, Tetanus Vaccination: No - UNSURE Review of Systems - Review of Systems Constitutional: denies: Fever EENT: denies: Eye discharge, Nose discharge Cardiovascular: denies: Chest pain, Palpitations Respiratory: denies: Short of breath Gastrointestinal: denies: Vomiting Genitourinary: denies: Dysuria Musculoskeletal: denies: Leg swelling Skin: Other - no hives. denies: Rash Neurological/Psychological: Other - no slurred speech -: Yes All other systems reviewed and negative Physical Exam - Vital signs Vitals: Resp 35 H 08/17/18 13:02 Notes: Reviewed vital signs and nursing note as charted by RN. CONSTITUTIONAL: Alert and oriented and responds appropriately to questions. Well -appearing; well-nourished HEAD: Normocephalic; atraumatic EYES: PERRL; extraocular range of motion ENT: Normal nose; no rhinorrhea; moist mucous membranes; pharynx without lesions noted NECK: Supple without meningismus; no carotid bruit; non-tender; no cervical lymphadenopathy, no masses CARD: Regular rate and rhythm; no murmurs, no clicks, no rubs, no gallops; symmetric distal pulses RESP: Normal chest excursion without splinting or tachypnea; breath sounds clear and equal bilaterally; no wheezes, no rhonchi, no rales ABD/GI: Normal bowel sounds; non-distended; soft, non-tender, no rebound, no guarding; no palpable organomegaly or masses BACK: The back appears normal and is non-tender to palpation, there is no CVA tenderness EXT: Normal ROM in all joints; non-tender to palpation; no cyanosis, no effusions, no edema SKIN: Normal color for age and race; warm; dry; good turgor; capillary refill < 2 seconds; no acute lesions noted NEURO: CN II through XII are intact. Patient has 5 out of 5 bilateral upper and lower extremity strength with sensation intact to light touch. No nystagmus noted PSYCH: The patient's mood and manner are appropriate. Grooming and personal hygiene are appropriate. Course - Re-evaluation Re-evalutation: 08/17/18 15:37 Given the history and physical examination, I will order cardiac panel, EKG, CT scan of the head, and reassess. I do not believe a repeat dissection evaluation is prudent given that the patient had similar symptomatology 2 weeks ago and this was unremarkable. EKG shows a heart of 72, bigeminy is present, no ST elevations or depressions noted. This appears to be a new rhythm compared to the one on August 13, 2018. 08/17/18 17:49 No change in examination. Labs as recorded. CT imaging as recorded. Aspirin has been provided. Patient states on my reexamination that he currently has no numbness to his face and fingers. I believe that the patient would benefit from an MRI, carotid Doppler, and echo. - Vital Signs Vital signs: Temp Pulse Resp BP Pulse Ox 98.3 F 41 H 130/72 H 96 08/17/18 13:05 08/17/18 17:01 08/17/18 17:01 08/17/18 17:01 - Laboratory Result Diagrams: 08/17/18 13:30 08/17/18 16:47 Laboratory results interpreted by me: 08/17/18 08/17/18 13:30 16:47 RBC 4.19 L Hgb 12.1 L Hct 34.1 L RDW 16.7 H Direct Bilirubin 0.5 H Albumin 3.4 L Discharge - Discharge Clinical Impression: Left facial numbness, Numbness of left hand Chest pain Qualifiers: Chest pain type: unspecified Qualified Code(s): R07.9 - Chest pain, unspecified Condition: Fair Disposition: ADMITTED OBSERVATION Admitting Provider: Hospitalist Unit Admitted: Telemetry Referrals: FRANCINE LUCERO DO [Primary Care Provider] - Follow up as needed
[2018-08-17] MEDS ORDERED: MORPHINE SULFATE 10 MG/ML INJ IV ONE (16:36)
[2018-08-17 17:23] LABS: ALANINE AMINOTRANSFERASE 60 U/L (21-72); ALBUMIN 3.4 g/dL (3.5-5.0); ALKALINE PHOSPHATASE 119 U/L (38-126); ANION GAP 8 (5-19); ASPARTATE AMINO TRANSFERASE 29 U/L (17-59); BILIRUBIN,DIRECT 0.5 mg/dL (0.0-0.4); BILIRUBIN,TOTAL 0.9 mg/dL (0.2-1.3); BLOOD UREA NITROGEN 11 mg/dL (7-20); CALCIUM 9.1 mg/dL (8.4-10.2); CARBON DIOXIDE 25 mmol/L (22-30); CHLORIDE 104 mmol/L (98-107); CREATINE KINASE 62 U/L (55-170); GLUCOSE 94 mg/dL (75-110); POTASSIUM 4.1 mmol/L (3.6-5.0); SODIUM 137.2 mmol/L (137-145); TOTAL PROTEIN 6.9 g/dL (6.3-8.2)
--- NOTE | 2018-08-17 17:30 | RADIOLOGY REPORT (SQ) ---
EXAM DESCRIPTION: CT HEAD WITHOUT COMPLETED DATE/TIME: 08/17/2018 5:21 pm REASON FOR STUDY: 20; Headache with numbness to left fingers COMPARISON: CT brain 08/01/2018 MRA exam [place] 08/02/2018 TECHNIQUE: Axial images acquired through the brain without intravenous contrast. Images reviewed wi th bone, brain and subdural windows. Additional sagittal and coronal reconstructions were generated. Images stored on PACS. All CT scanners at this facility use dose modulation, iterative reconstruction, and/or weight based d osing when appropriate to reduce radiation dose to as low as reasonably achievable (ALARA). [facility]: Dose Right [facility]: CareDose [facility]: Dose Right [facility]: Teradose 4D [facility]: [employer] RADIATION DOSE: CT Rad equipment meets quality standard of care and radiation dose reduction techniq ues were employed. CTDIvol: 53.2 mGy. DLP: 964 mGy-cm. mGy. LIMITATIONS: None. FINDINGS: VENTRICLES: Normal size and contour. CEREBRUM: No masses. No hemorrhage. No midline shift. No evidence for acute infarction. Normal gra y/white matter differentiation. No areas of low density in the white matter. CEREBELLUM: No masses. No hemorrhage. No alteration of density. No evidence for acute infarction. EXTRAAXIAL SPACES: No fluid collections. No masses. ORBITS AND GLOBE: No intra- or extraconal masses. Normal contour of globe without masses. CALVARIUM: No fracture. PARANASAL SINUSES: No fluid or mucosal thickening. SOFT TISSUES: No mass or hematoma. OTHER: No other significant finding. IMPRESSION: NORMAL BRAIN CT WITHOUT CONTRAST. EVIDENCE OF ACUTE STROKE: NO. COMMENT: Quality ID # [id number]: Final reports with documentation of one or more dose reduction techniques (e.g., Automated exposure control, adjustment of the mA and/or kV according to patient size, use of iterative reconstruction technique) TECHNICAL DOCUMENTATION: JOB ID: [id number] [employer]- All Rights Reserved Reading location - IP/workstation name: [email or web address]
[2018-08-17 17:34] LABS: CREATINE KINASE MB 0.85 ng/mL (<4.55)
[2018-08-17 17:37] LABS: TROPONIN I 0.052 ng/mL
--- NOTE | 2018-08-17 19:23 | PDOC H&P ---
History of Present Illness Admission Date/PCP: 08/17/18 18:02 FRANCINE LUCERO DO Patient complains of: chest pain, left hand numbness History of Present Illness: MARIE MELGAR is a 58 year old male with a past medical history of NSTEMI in April 2018, atrial fibrillation on Eliquis, hypertension, GERD, osteoarthritis, and was recently found left lung mass who presented with multiple complaints. Patient was recently admitted 3 weeks ago for chest pain. He was also worked up recently for possible GCA due to left orbital pain. He says that his chest pain only resolved for less than a week but has not really completely resolved. He says that his chest pain is stabbing, 8/10 intensity nonexertional, occurs 5-6 times/day but does not go down to 0/10 in intensity. He denies palpitations, dizziness, PND, orthopnea. 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 He also complained of numbness on the left hand particularly involving only the first 4 fingers of the left hand (pinky spared). He says that he started yesterday. He also complaining of associated tingling sensation on his left lower face. He continues to complain of chronic left orbital pain associated with throbbing left sided headache. He also complains of gianni chills but not fever. Denies urinary symptoms. He also complains of left cervical pain. Denies dysphagia. Past Medical History Cardiac Medical History: Reports: Myocardial Infarction - Non-STEMI April 2016, Hypertension Denies: Congestive Heart Failure, Coronary Artery Disease Pulmonary Medical History: Reports: Pneumonia Denies: Asthma, Bronchitis, Chronic Obstructive Pulmonary Disease (COPD) Neurological Medical History: Denies: Seizures GI Medical History: Reports: Gastroesophageal Reflux Disease Musculoskeltal Medical History: Reports: Arthritis - osteoarthritis Hematology: Denies: Anemia Social History Smoking Status: Unknown if Ever Smoked Frequency of Alcohol Use: Occasional Hx Recreational Drug Use: Yes Drugs: Marijuana Hx Prescription Drug Abuse: No Family History Family History: Reviewed & Not Pertinent Parental Family History Reviewed: Yes - no premature CAD Children Family History Reviewed: No Sibling(s) Family History Reviewed.: No Medication/Allergy Home Medications: Atorvastatin Calcium [Lipitor 40 mg Tablet] 40 mg PO QHS 08/01/18 Lisinopril [Prinivil 40 mg Tablet] 40 mg PO DAILY 08/01/18 Polyethylene Glycol 3350 [Miralax Powder 17 gm/Packet] 1 packet PO DAILY Sildenafil Citrate [Viagra] 100 mg PO PRN PRN 08/01/18 Apixaban [Eliquis 5 mg Tablet] 5 mg PO BID #60 tablet 08/03/18 Aspirin [Ecotrin 81 mg EC Tablet] 81 mg PO DAILY tabec 08/03/18 Carboxymethylcellulose Sodium [Refresh Plus 0.5% Oph Soln 0.4 ml Droperette] 1 drop OU QID #1 droperette 08/03/18 Diltiazem HCl [Diltiazem 12Hr ER] 120 mg PO BID #60 cap.er.12h 08/03/18 Fluticasone Propionate [Flonase Nasal Pegram 50 Mcg/Pegram 16 gm] 2 sprays NASL Q12 #1 inhaler 08/03/18 Nicotine [Nicoderm 14 mg/24 Hr Transdermal Patch] 1 each TD DAILY #30 patch.td24 08/03/18 Famotidine [Pepcid 20 mg Tablet] 20 mg PO BID #20 tablet 08/13/18 Sucralfate [Carafate 1 gm Tablet] 1 gm PO QID #20 tablet 08/13/18 Acetaminophen [Tylenol 325 mg Tablet] 650 mg PO Q4HP PRN 08/18/18 Allergies/Adverse Reactions: meloxicam Allergy (Intermediate, Verified 04/20/18 17:02) Dizziness pentazocine Adverse Reaction (Intermediate, Verified 04/20/18 17:02) LIGHTHEADEDNESS metoclopramide Adverse Reaction (Verified 04/20/18 17:02) UNKNOWN tamsulosin Adverse Reaction (Verified 04/20/18 17:02) UNKNOWN Review of Systems All systems: reviewed and no additional remarkable complaints except as stated - as mentioned in HPI Physical Exam Vital Signs: Temp Pulse Resp BP Pulse Ox 98.3 F 41 H 130/72 H 96 08/17/18 13:05 08/17/18 17:01 08/17/18 17:01 08/17/18 17:01 Results Impressions: Chest X-Ray 08/17/18 12:59 IMPRESSION: 1. No significant interval changes since the prior study dated 08/13/2018. No acute findings. Head CT 08/17/18 15:17 IMPRESSION: NORMAL BRAIN CT WITHOUT CONTRAST. EVIDENCE OF ACUTE STROKE: NO. Assessment & Plan - Diagnosis (1) Chest pain Qualifiers: Chest pain type: unspecified Qualified Code(s): R07.9 - Chest pain, unspecified Is this a current diagnosis for this admission?: Yes Plan: EKG shows PVCs with no signs of infarction. Troponin is mildly elevated at 0.05. Will cycle cardiac enzymes and EKGs. He had a recent cath in April which only showed 10%-20% non critical stenosis in the distribution of the left main coronary. (2) Numbness of left hand Is this a current diagnosis for this admission?: Yes Plan: Patient is also presenting with numbness of the left hand and on the left lower facial region. On further probing and examination, he only complains of tingling /numbness on the first 4 fingertips of the left hand (pinky spared) and on the left lower lips. MRI shows multiple acute and subacute infarcts in the - Time Time Spent: 50 to 70 Minutes
--- NOTE | 2018-08-17 20:32 | RADIOLOGY REPORT (SQ) ---
EXAM DESCRIPTION: MRI HEAD WITHOUT COMPLETED DATE/TIME: 08/17/2018 7:32 pm REASON FOR STUDY: 20; left hand and face numbness COMPARISON: None. TECHNIQUE: Multiplanar imaging includes non-contrasted T1, T2, FLAIR, and Diffusion with ADC map seq uences. Images stored on PACS. LIMITATIONS: None. FINDINGS: ANATOMY: No anomalies. Normal vascular flow voids. Pituitary fossa normal. CSF SPACES: Normal in size and contour. No hemorrhage. CEREBRUM: Scattered high-signal intensity lesions scattered throughout the white matter on FLAIR imag ing with distribution suggesting chronic micro-vascular ischemic change. Sulci and gyri normal in si ze and contour. No evidence of hemorrhage, mass or extraaxial fluid collection. POSTERIOR FOSSA: No signal alteration. No hemorrhage. No edema, masses or mass effect. Internal arjun tory canals, cerebello-pontine angles, mastoids normal. DIFFUSION: Positive for numerous lacunar acute or sub-acute infarctions involving both cerebral hemis pheres as well as both cerebellar hemispheres. Specifically areas of note the bar the right thalamus and left anterior caudate nucleus. Numerous subcortical and periventricular white matter lesions ar e noted throughout both cerebral and cerebellar hemispheres. ORBITS: No masses. Globes normal. PARANASAL SINUSES: Bilateral maxillary and ethmoid mucosal thickening. . OTHER: No other significant finding. IMPRESSION: Positive for numerous lacunar acute or sub-acute infarctions involving both cerebral hem ispheres as well as both cerebellar hemispheres. EVIDENCE OF ACUTE STROKE: YES. Bilateral anterior and posterior circulation COMMENT: The patient has been admitted to the hospital, results attempted to be called, patient prov iders in transition. TECHNICAL DOCUMENTATION: JOB ID: [id number] [place]-72 2010 [employer]- All Rights Reserved Reading location - IP/workstation name: [email or web address]
[2018-08-17] MEDS: ACETAMINOPHEN 325 MG TABLET PO PRN (21:31)
--- NOTE | 2018-08-17 22:38 | EKG REPORT ---
SEVERITY:- ABNORMAL ECG - SINUS RHYTHM MULTIFORM VENTRICULAR PREMATURE COMPLEXES : Confirmed by: Nisha Corea MD 17-Aug-2018 22:37:55
--- NOTE | 2018-08-17 22:39 | EKG REPORT ---
SEVERITY:- ABNORMAL ECG - SINUS RHYTHM MULTIFORM VENTRICULAR PREMATURE COMPLEXES NONSPECIFIC T ABNORMALITIES, DIFFUSE LEADS : Confirmed by: Nisha Corea MD 17-Aug-2018 22:38:01
[2018-08-17] MEDS: ATORVASTATIN CALCIUM 40 MG TABLET PO SCH (23:22)
[2018-08-17] MEDS: SUCRALFATE 1 GM TABLET PO SCH (23:22)
[2018-08-17] MEDS: DILTIAZEM HCL 60 MG TABLET PO SCH (23:22)
[2018-08-17] MEDS: FLUTICASONE NASAL SPRAY 50 MCG/SPRY 120 SPRAY/16 GM NASL SCH (23:27)
[2018-08-17] MEDS: CARBOXYMETHYLCELLULOSE SOD 0.5% 0.4 ML DROPERETTE OU SCH (23:29)
[2018-08-18] MEDS: OXYCODONE-ACETAMINOPHEN 5-325 MG TABLET PO PRN ×3 (00:18→23:22)
[2018-08-18] MEDS ORDERED: ALBUTEROL SULFATE 0.042% NEB (1.25 MG/3 ML) AMPUL NEB ONE (01:44)
[2018-08-18] MEDS ORDERED: ATROPINE SULFATE INJ 1 MG/10 ML DISP.SYRIN IV ONE (02:27)
[2018-08-18] MEDS ORDERED: ATROPINE SULFATE INJ 1 MG/1 ML VIAL IV ONE (02:45)
[2018-08-18] MEDS ORDERED: CALCIUM GLUCONATE 1,000 MG in DEXTROSE 5%-WATER 50 ML IV PRN (04:06)
[2018-08-18] MEDS ORDERED: CALCIUM GLUCONATE 1000 MG/10 ML INJ IV ONE (06:35)
[2018-08-18 08:40] LABS: ABSOLUTE BASOPHILS # (AUTO) 0.1 10^3/uL (0.0-0.2); ABSOLUTE LYMPHOCYTES (AUTO) 2.1 10^3/uL (0.5-4.7); ABSOLUTE MONOCYTES (AUTO) 1.2 10^3/uL (0.1-1.4); ABSOLUTE NEUT (AUTO) 5.3 10^3/uL (1.7-8.2); BASOPHILS % (AUTO) 1.1 % (0-2); EOSINOPHILS % (AUTO) 0.2 % (0-6); HEMATOCRIT 35.2 % (37.9-51.0); HEMOGLOBIN 12.4 g/dL (13.5-17.0); LYMPHOCYTES % (AUTO) 24.6 % (13-45); MEAN CORPUSCULAR HGB CONC 35.3 g/dL (32.0-36.0); MEAN CORPUSCULAR VOLUME 82 fl (80-97); MONOCYTES % (AUTO) 13.6 % (3-13); PLATELET COUNT 332 10^3/uL (150-450); RED BLOOD COUNT 4.29 10^6/uL (4.35-5.55); RED CELL DISTRIBUTION WIDTH 16.5 % (11.5-14.0); SEGMENTED NEUTROPHILS % (AUTO) 60.5 % (42-78); TOTAL CELLS COUNTED % (AUTO) 100 %; WHITE BLOOD COUNT 8.7 10^3/uL (4.0-10.5)
[2018-08-18 08:42] LABS: ANION GAP 11 (5-19); BLOOD UREA NITROGEN 13 mg/dL (7-20); CALCIUM 9.3 mg/dL (8.4-10.2); CARBON DIOXIDE 19 mmol/L (22-30); CHLORIDE 104 mmol/L (98-107); GLUCOSE 85 mg/dL (75-110); POTASSIUM 4.5 mmol/L (3.6-5.0); SODIUM 133.8 mmol/L (137-145)
--- NOTE | 2018-08-18 09:33 | EKG REPORT ---
SEVERITY:- ABNORMAL ECG - SINUS ARRHYTHMIA, RATE 63-72 PAIRED VENTRICULAR PREMATURE COMPLEXES : Confirmed by: Nisha Corea MD 18-Aug-2018 09:32:57
--- NOTE | 2018-08-18 09:33 | EKG REPORT ---
SEVERITY:- ABNORMAL ECG - SINUS RHYTHM PAIRED VENTRICULAR PREMATURE COMPLEXES : Confirmed by: Nisha Corea MD 18-Aug-2018 09:33:06
--- NOTE | 2018-08-18 09:34 | EKG REPORT ---
SEVERITY:- BORDERLINE ECG - SINUS BRADYCARDIA PROBABLE LEFT ATRIAL ABNORMALITY : Confirmed by: Nisha Corea MD 18-Aug-2018 09:33:01
--- NOTE | 2018-08-18 09:54 | RADIOLOGY REPORT (SQ) ---
EXAM DESCRIPTION: CTA NECK COMPLETED DATE/TIME: 08/18/2018 9:09 am REASON FOR STUDY: multiple bilateral infarcts COMPARISON: CT chest dated 08/02/2018. TECHNIQUE: Axial dynamic scanning technique with dynamic contrast enhancement through the extra-crack off person nial carotid and vertebral arteries. Multiplanar reconstruction. 3-D MIPS and Volume-rendered imag es acquired at the workstation and saved to PACS. Images are reviewed in soft tissue, bone, lung w indows. All CT scanners at this facility use dose modulation, iterative reconstruction, and/or weight based d osing when appropriate to reduce radiation dose to as low as reasonably achievable (ALARA). [facility]: Dose Right [facility]: CareDose [facility]: Dose Right [facility]: Teradose 4D [facility]: [employer] CONTRAST TYPE AND DOSE: contrast/concentration: Isovue 350.00 mg/ml; Total Contrast Delivered: 70.0 ml; Total Saline Delivered: 75.0 ml RENAL FUNCTION: BUN 11 creatinine 1.09. LIMITATIONS: None. FINDINGS: AORTIC ARCH: Normal three-vessel origin. Bilateral subclavian arteries are patent. No d issection. RIGHT CAROTIDS: Patent common, internal and external carotid arteries without suggestion of significa nt stenosis or irregular plaque. Mild calcification in the carotid bulb. No dissection. RIGHT VERTEBRAL: Patent. No dissection. LEFT CAROTIDS: Patent common, internal and external carotid arteries without suggestion of significan t stenosis or irregular plaque. Mild calcification in the carotid bulb. No dissection. LEFT VERTEBRAL: Patent. No dissection. OTHER: 2.0 mass in the left lung. 4 cm mass in the aorta pulmonary window and left suprahilar region , incompletely imaged. OTHER: 3-D reconstructions confirm findings. IMPRESSION: 1. NORMAL CTA OF THE EXTRA-CRANIAL CAROTID AND VERTEBRAL ARTERIES. 2. LEFT SUPRAHILAR AND AORTA PULMONARY WINDOW MASS WHICH HAS INCREASED IN SIZE SINCE THE PRIOR CHEST CT. COMMENT: Quality ID #[id number]: Measurements of distal internal carotid diameter were used as the denomina tor for stenosis measurement. TECHNICAL DOCUMENTATION: JOB ID: [id number] Quality ID # [id number]: Final reports with documentation of one or more dose reduction techniques (e.g., Au tomated exposure control, adjustment of the mA and/or kV according to patient size, use of iterative reconstruction technique) 2010 [employer]- All Rights Reserved Reading location - IP/workstation name: [email or web address]
--- NOTE | 2018-08-18 09:56 | RADIOLOGY REPORT (SQ) ---
EXAM DESCRIPTION: CTA HEAD COMPLETED DATE/TIME: 08/18/2018 9:09 am REASON FOR STUDY: multiple bilateral infarcts COMPARISON: None. TECHNIQUE: Post IV contrast scanning, thin section axial imaging through the brain to evaluate the a rterial structures. Source and MIP images are saved and reviewed on PACS. Advanced 3D imaging as volume-rendering, MIPs, SSD performed? yes All CT scanners at this facility use dose modulation, iterative reconstruction, and/or weight based d osing when appropriate to reduce radiation dose to as low as reasonably achievable (ALARA). [facility]: Dose Right [facility]: CareDose [facility]: Dose Right [facility]: Teradose 4D [facility]: [employer] CONTRAST TYPE AND DOSE: 70 mL Omnipaque 350- low osmolar. RENAL FUNCTION: BUN 11 creatinine 1.09. LIMITATIONS: None. FINDINGS: [place]: Calcified plaque in the cavernous right internal carotid artery. The an terior, middle, posterior cerebral arteries are all patent. No evidence of aneurysm or focal stenosi s. POSTERIOR CIRCULATION: The distal vertebral arteries are patent as is the basilar artery. No aneurysm . BRAIN: No gross enhancing lesions as visualized. BONES: Intact as visualized. SINUSES: No fluid or mucosal thickening. OTHER: No other significant finding. IMPRESSION: NO CTA EVIDENCE OF STENOSIS OR ANEURYSM OF THE [place]. TECHNICAL DOCUMENTATION: JOB ID: [id number] Quality ID # [id number]: Final reports with documentation of one or more dose reduction techniques (e.g., Au tomated exposure control, adjustment of the mA and/or kV according to patient size, use of iterative reconstruction technique) 2010 [employer]- All Rights Reserved Reading location - IP/workstation name: [email or web address]
[2018-08-18 10:41] LABS: ARTERIAL BLOOD BASE EXCESS -1.3 mmol/L; ARTERIAL BLOOD FIO2 ROOM AIR; ARTERIAL BLOOD H2CO3 0.84 mmol/L (1.05-1.35); ARTERIAL BLOOD HCO3 20.9 mmol/L (20-24); ARTERIAL BLOOD O2 SATURATION 96.3 % (94-98); ARTERIAL BLOOD PCO2 27.8 mmHg (35-45); ARTERIAL BLOOD PH 7.49 (7.35-7.45); ARTERIAL BLOOD PO2 75.8 mmHg (80-100); ARTERIAL BLOOD TOTAL CO2 21.7 mmol/L (23-27)
--- NOTE | 2018-08-18 12:21 | RADIOLOGY REPORT (SQ) ---
EXAM DESCRIPTION: NM LUNG VENT/PERF SCAN COMPLETED DATE/TIME: 08/18/2018 12:02 pm REASON FOR STUDY: assess for PE,unable to do CTAchest today COMPARISON: 08/17/2018 chest radiograph RADIONUCLIDE AND DOSE: 5.44 millicuries TC-99m MAA Intravenous 31.5 millicuries TC-99m DTPA Inhaled aerosol TECHNIQUE: Eight views of the lungs acquired post ventilation of DTPA aerosol. Eight matching views of the lungs acquired following injection of MAA. LIMITATIONS: None. FINDINGS: VENTILATION: Heterogeneous somewhat symmetric distribution of DTPA aerosol during ventilat ory phase. No large areas of photopenia. PERFUSION: Perfusion images show lack of radiotracer activity in the left upper lobe apical segments consistent with ventilation-perfusion mismatch. OTHER: No other significant finding. IMPRESSION: Perfusion images show lack of radiotracer activity in the left upper lobe apical segment s consistent with ventilation-perfusion mismatch. TECHNICAL DOCUMENTATION: JOB ID: [id number] [place]-72 2010 [employer]- All Rights Reserved Reading location - IP/workstation name: [email or web address]
[2018-08-18] MEDS: DILTIAZEM HCL 60 MG TABLET PO SCH (12:45)
[2018-08-18] MEDS: SUCRALFATE 1 GM TABLET PO SCH ×4 (12:51→22:09)
[2018-08-18] MEDS: FAMOTIDINE 20 MG TABLET PO SCH ×2 (12:52→18:43)
[2018-08-18] MEDS: LISINOPRIL 10 MG TABLET PO SCH (12:52)
[2018-08-18] MEDS: NICOTINE 14 MG/24 HR PATCH.TD24 TD SCH ×2 (12:52→13:05)
[2018-08-18] MEDS: ASPIRIN 81 MG TABLET, ENT COATED PO SCH (12:52)
[2018-08-18] MEDS: FLUTICASONE NASAL SPRAY 50 MCG/SPRY 120 SPRAY/16 GM NASL SCH ×2 (12:53→22:12)
[2018-08-18] MEDS: POLYETHYLENE GLYCOL 3350 POWDER 17 GM/1 PACKET PO SCH (12:53)
--- NOTE | 2018-08-18 12:53 | XCELERA REPORT ---
[address] [address] Transthoracic Echocardiogram Report Name: MARIE MELGAR Age: 58 yrs Gender: Male : 1960 Patient Status: Inpatient Patient Location: ICU^602^A Study Date: 08/18/2018 10:02 AM Height: 66 in Weight: 198 lb BSA: 2.0 m2 Procedure: A complete two-dimensional transthoracic echocardiogram was performed (2D, M-mode, spectral and color flow Doppler). The study was technically difficult with many images being suboptimal in quality. Reason For Study: bilateral CVA,tachy-eneida Ordering Physician: ANNABEL AREVALO Performed By: Emelia Palacio Interpretation Summary The left ventricular ejection fraction is normal. There is borderline concentric left ventricular hypertrophy. The left ventricle is grossly normal size. LV diastolic function could not be adequately assessed. Wall motion cannot be accurately commented on, but no definite regional wall motion abnormalities noted. The right ventricle is grossly normal size. There is normal right ventricular wall thickness. The right atrium is normal in size The left atrial size is normal. There is a trace amount of mitral regurgitation There is no mitral valve stenosis. No aortic regurgitation is present. There is no aortic valve stenosis There is a trace or physiologic amount of tricuspid regurgitation Tricuspid regurgitation jet envelope not well defined to measure RV systolic pressure accurately. The aortic root is not well visualized but is probably normal size. The inferior vena cava was not well visualized There is no pericardial effusion. MMode/2D Measurements & Calculations RVDd: 2.7 cm LVIDd: 4.5 cm FS: 33.1 % Ao root diam: 3.3 cm IVSd: 1.0 cm LVIDs: 3.0 cm EDV(Teich): 92.9 ml Ao root area: 8.4 cm2 LVPWd: 1.0 cm ESV(Teich): 35.5 ml LA dimension: 3.2 cm EF(Teich): 61.8 % Doppler Measurements & Calculations MV E max cynthia: MV P1/2t max cynthia: Ao V2 max: LV V1 max P.9 cm/sec 90.0 cm/sec 130.3 cm/sec 3.5 mmHg MV A max cynthia: MV P1/2t: 54.0 msec Ao max PG: LV V1 max: 109.1 cm/sec MVA(P1/2t): 4.1 cm2 6.8 mmHg 93.3 cm/sec MV E/A: 0.78 MV dec slope: 488.1 cm/sec2 MV dec time: 0.23 sec TV V2 max: PA V2 max: TR max cynthia: MV P1/2t-pr_phl: 76.0 cm/sec 81.4 cm/sec 136.5 cm/sec 54.0 msec TV max P.3 mmHgPA max P.7 mmHg TR max P.5 mmHg Left Ventricle The left ventricle is grossly normal size. There is borderline concentric left ventricular hypertrophy. The left ventricular ejection fraction is normal. LV diastolic function could not be adequately assessed. Wall motion cannot be accurately commented on, but no definite regional wall motion abnormalities noted. Right Ventricle The right ventricle is grossly normal size. There is normal right ventricular wall thickness. The right ventricular systolic function is normal. Atria The right atrium is normal in size. The left atrial size is normal. Interarterial septum not well visualized and not well dopplered. Cannot comment on ASD/PFO presence. Mitral Valve The mitral valve is not well visualized. There is no mitral valve stenosis. There is a trace amount of mitral regurgitation. Aortic Valve The aortic valve is not well visualized secondary to technical limitations. There is no aortic valve stenosis. No aortic regurgitation is present. Tricuspid Valve The tricuspid valve is not well visualized secondary to technical limitations. There is no tricuspid stenosis. There is a trace or physiologic amount of tricuspid regurgitation. Tricuspid regurgitation jet envelope not well defined to measure RV systolic pressure accurately. Pulmonic Valve The pulmonic valve is not well visualized. Great Vessels The aortic root is not well visualized but is probably normal size. The inferior vena cava was not well visualized. Effusions There is no pericardial effusion. Incidental Findings No definite cardiac source of CVA/TIA noted on this particular trans-thoracic study. Consider KELSEY if clinically indicated. May consider mobile cardiac telemetry monitoring (MCT) for ruling out transient AFIB. : ANNABEL AREVALO > Lisette Bentley
[2018-08-18] MEDS: CARBOXYMETHYLCELLULOSE SOD 0.5% 0.4 ML DROPERETTE OU SCH ×4 (12:54→22:11)
[2018-08-18] MEDS: APIXABAN 5 MG TABLET PO SCH ×2 (13:02→18:45)
--- NOTE | 2018-08-18 14:05 | PDOC CONSULTATION ---
Consultation Consult Date: 08/18/18 Attending physician:: ANNABEL AREVALO Consult reason:: Bradycardia, paroxysmal atrial flutter fibrillation. History of Present Illness Admission Date/PCP: 08/17/18 18:02 FRANCINE LUCERO DO Patient complains of: Cerebrovascular accident History of Present Illness: MARIE MELGAR is a 58 year old male with a past medical history of NSTEMI in April 2018, atrial fibrillation on Eliquis, hypertension, GERD, osteoarthritis, and was recently found left lung mass who presented with multiple complaints. Patient was recently admitted 3 weeks ago for chest pain. He was also worked up recently for possible GCA due to left orbital pain. He says that his chest pain only resolved for less than a week but has not really completely resolved. He says that his chest pain is stabbing, 8/10 intensity nonexertional, occurs 5-6 times/day but does not go down to 0/10 in intensity. He denies palpitations, dizziness, PND, orthopnea. 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 He also complained of numbness on the left hand particularly involving only the first 4 fingers of the left hand (pinky spared). He says that he started yesterday. He also complaining of associated tingling sensation on his left lower face. He continues to complain of chronic left orbital pain associated with throbbing left sided headache. He also complains of gianni chills but not fever. Denies urinary symptoms. He also complains of left cervical pain. Denies dysphagia. This history obtained by the hospitalist was reviewed and confirmed. Patient was admitted to a monitored bed. Last night, patient was noted to have episodes of paroxysmal atrial flutter fibrillation with rapid ventricular response with heart rate going up to 140. Patient apparently received Cardizem following which his heart rate dropped down to in the high 30s to low 40s. Patient did complain of some intermittent dizziness. Patient was transferred to the unit this morning for closer monitoring. Stat 2D echo was ordered which was reviewed. It showed normal LVEF. No significant valvular abnormalities noted. Patient had a recent heart catheterization, which was performed on in mid April 2018. It showed mild nonobstructive disease. A 2D echocardiogram at that time showed normal LVEF. Past Medical History Cardiac Medical History: Reports: Myocardial Infarction - Non-STEMI April 2016, Hypertension Denies: Congestive Heart Failure, Coronary Artery Disease Pulmonary Medical History: Reports: Pneumonia Denies: Asthma, Bronchitis, Chronic Obstructive Pulmonary Disease (COPD) Neurological Medical History: Denies: Seizures GI Medical History: Reports: Gastroesophageal Reflux Disease Musculoskeltal Medical History: Reports: Arthritis - osteoarthritis Psychiatric Medical History: Denies: Depression Hematology: Denies: Anemia Social History Information Source: Patient Smoking Status: Unknown if Ever Smoked Cigarettes Packs Per Day: 0.2 Number of Years Smokin Last Time Smoked: last week Frequency of Alcohol Use: Occasional Hx Recreational Drug Use: Yes Drugs: Marijuana Hx Prescription Drug Abuse: No - Advance Directive Resuscitation Status: Full Code Family History Family History: Hypertension Parental Family History Reviewed: Yes Children Family History Reviewed: Yes Sibling(s) Family History Reviewed.: Yes Medication/Allergy Home Medications: Atorvastatin Calcium [Lipitor 40 mg Tablet] 40 mg PO QHS 08/01/18 Lisinopril [Prinivil 40 mg Tablet] 40 mg PO DAILY 08/01/18 Polyethylene Glycol 3350 [Miralax Powder 17 gm/Packet] 1 packet PO DAILY Sildenafil Citrate [Viagra] 100 mg PO PRN PRN 08/01/18 Apixaban [Eliquis 5 mg Tablet] 5 mg PO BID #60 tablet 08/03/18 Aspirin [Ecotrin 81 mg EC Tablet] 81 mg PO DAILY tabec 08/03/18 Carboxymethylcellulose Sodium [Refresh Plus 0.5% Oph Soln 0.4 ml Droperette] 1 drop OU QID #1 droperette 08/03/18 Diltiazem HCl [Diltiazem 12Hr ER] 120 mg PO BID #60 cap.er.12h 08/03/18 Fluticasone Propionate [Flonase Nasal [place] 50 Mcg/[place] 16 gm] 2 sprays NASL Q12 #1 inhaler 08/03/18 Nicotine [Nicoderm 14 mg/24 Hr Transdermal Patch] 1 each TD DAILY #30 patch.td24 08/03/18 Famotidine [Pepcid 20 mg Tablet] 20 mg PO BID #20 tablet 08/13/18 Sucralfate [Carafate 1 gm Tablet] 1 gm PO QID #20 tablet 08/13/18 Acetaminophen [Tylenol 325 mg Tablet] 650 mg PO Q4HP PRN 08/18/18 Allergies/Adverse Reactions: meloxicam Allergy (Intermediate, Verified 04/20/18 17:02) Dizziness pentazocine Adverse Reaction (Intermediate, Verified 04/20/18 17:02) LIGHTHEADEDNESS metoclopramide Adverse Reaction (Verified 04/20/18 17:02) UNKNOWN tamsulosin Adverse Reaction (Verified 04/20/18 17:02) UNKNOWN Review of Systems Review of Systems: Please see history of present illness and past medical history as wall. Constitutional: No fever or chills reported. Head : History of headaches. Eyes: History of eye pain but no diplopia, redness, discharge, acute visual changes. Ears: No recent chronic ear pain, acute hearing loss, ear discharge. Oral cavity: No recent ulcerations, bleeding, oral cavity discomfort. Neck: No recent acute neck pain reported. Hematologic: No recent easy bruising or bleeding. Lymphatic: No recent lymph node enlargement reported. Cardiovascular system review: See history of present illness. Respiratory system review: No hemoptysis or blood clots in the lungs reported. Mild Shortness of breath on exertion Gastrointestinal system review: Negative for any recent acute hematemesis, melena. Genitourinary system review: No recent acute or chronic hematuria, flank pain, UTI etc. reported. Skin system review: Negative for any recent abnormal bruising, no rash, no pruritus reported. Neurologic: Patient this admission noted to have previous evidence of strokes. Psychologic: No history of major psychosis or major depression reported. Musculoskeletal: Minor aches and pains reported. No acute joint swelling reported. Endocrine: No recent polyuria, polydipsia, recent heat or cold intolerance. Physical Exam Vital Signs: Temp Pulse Resp BP Pulse Ox 98.6 F 59 L 24 H 136/90 H 97 08/18/18 12:00 08/18/18 12:00 08/18/18 12:00 08/18/18 12:00 08/18/18 12:00 Intake & Output 08/17/18 08/18/18 08/19/18 06:59 06:59 06:59 Intake Total 50 Output Total 280 200 Balance -230 -200 Weight 90.1 kg Exam: GENERAL: well-nourished and in no acute distress. Alert and oriented x3 HEAD: Atraumatic, normocephalic. EYES: Pupils equal round and reactive to light, extraocular movements intact, sclera anicteric, conjunctiva are normal. ENT: TMs normal, nares patent, oropharynx clear without exudates. Moist mucous membranes. No oral ulcerations or bleeding gums noted NECK: supple without lymphadenopathy. Trachea is central. No cervical or axillary lymphadenopathy noted. Carotids are 2+, JVD WNL LUNGS: Respiration seems nonlabored, no significant accessory muscle action noted. Breath sounds clear to auscultation bilaterally and equal noted. No wheezes rales or rhonchi noted. No significant dullness noted on percussion. CHEST: Palpation of the chest wall shows no significant chest wall tenderness. 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 ABDOMEN: Soft, no significant tenderness appreciated, normoactive bowel sounds. No guarding, no rebound. No rigidity noted . No masses appreciated. EXTREMITIES: Pedal pulses are 1-2+, no calf tenderness noted. No clubbing or cyanosis. negative pedal edema noted NEUROLOGICAL: Focused neurological exam showed no significant neurologic deficit. Normal speech, no focal weakness appreciated. MRI does show presence of stroke. A full comprehensive neurological exam was not performed. PSYCH: Normal mood, normal affect. Judgment and insight within normal limits. SKIN: No significant ecchymosis, skin is noted to be warm. MUSCULOSKELETAL EXAM: No significant acute joint swelling noted. Results Laboratory Results: 08/18/18 06:14 08/18/18 06:14 08/18/18 08/18/18 08/18/18 06:14 06:14 10:30 WBC 8.7 RBC 4.29 L Hgb 12.4 L Hct 35.2 L MCV 82 MCH 29.0 MCHC 35.3 RDW 16.5 H Plt Count 332 Seg Neutrophils % 60.5 Lymphocytes % 24.6 Monocytes % 13.6 H Eosinophils % 0.2 Basophils % 1.1 Absolute Neutrophils 5.3 Absolute Lymphocytes 2.1 Absolute Monocytes 1.2 Absolute Eosinophils 0.0 Absolute Basophils 0.1 Carbonic Acid 0.84 L HCO3/H2CO3 Ratio 24:1 ABG pH 7.49 H ABG pCO2 27.8 L ABG pO2 75.8 L ABG HCO3 20.9 ABG O2 Saturation 96.3 ABG Base Excess -1.3 FiO2 ROOM AIR Sodium 133.8 L Potassium 4.5 Chloride 104 Carbon Dioxide 19 L Anion Gap 11 BUN 13 Creatinine 1.00 Est GFR ( Amer) > 60 Est GFR (Non-Af Amer) > 60 Glucose 85 Calcium 9.3 08/18/18 08/18/18 08/18/18 00:20 06:14 08:21 Troponin I 0.046 0.036 0.029 EKG Comments: Sinus rhythm, frequent, no acute ST-T wave changes. Impressions: Chest X-Ray 08/17/18 12:59 IMPRESSION: 1. No significant interval changes since the prior study dated 08/13/2018. No acute findings. Head CT 08/17/18 15:17 IMPRESSION: NORMAL BRAIN CT WITHOUT CONTRAST. EVIDENCE OF ACUTE STROKE: NO. Head MRI 08/17/18 17:48 IMPRESSION: Positive for numerous lacunar acute or sub-acute infarctions involving both cerebral hemispheres as well as both cerebellar hemispheres. EVIDENCE OF ACUTE STROKE: YES. Bilateral anterior and posterior circulation Head CTA 08/18/18 00:00 IMPRESSION: NO CTA EVIDENCE OF STENOSIS OR ANEURYSM OF THE [place] OF CHILDRESS. Neck CTA 08/18/18 00:00 IMPRESSION: 1. NORMAL CTA OF THE EXTRA-CRANIAL CAROTID AND VERTEBRAL ARTERIES. 2. LEFT SUPRAHILAR AND AORTA PULMONARY WINDOW MASS WHICH HAS INCREASED IN SIZE SINCE THE PRIOR CHEST CT. Lung Scan-VQ NM 08/18/18 08:50 IMPRESSION: Perfusion images show lack of radiotracer activity in the left upper lobe apical segments consistent with ventilation-perfusion mismatch. Assessment & Plan - Diagnosis (1) Atrial fibrillation with RVR Is this a current diagnosis for this admission?: Yes (2) Bradycardia Is this a current diagnosis for this admission?: Yes (3) Cerebrovascular accident Qualifiers: CVA mechanism: unspecified Qualified Code(s): I63.9 - Cerebral infarction, unspecified Is this a current diagnosis for this admission?: Yes (4) Hypertension Qualifiers: Hypertension type: essential hypertension Qualified Code(s): I10 - Essential (primary) hypertension Is this a current diagnosis for this admission?: Yes (5) Chest pain Qualifiers: Chest pain type: unspecified Qualified Code(s): R07.9 - Chest pain, unspecified Is this a current diagnosis for this admission?: Yes - Notes Notes: Atrial fibrillation with rapid ventricular response: Patient has a history of it. Was on Eliquis at home, compliance is somewhat suspect. Patient has now confirmed cerebrovascular accidents by MRI. Need to continue with Eliquis therapy. Rate control currently with Cardizem but patient noted to be bradycardic. At this point will hold Cardizem. Start flecainide to see if it will control atrial fibrillation. Flecainide does not affect the SA node as much therefore unlikely to cause bradycardia. Monitor for any increased cardiac dysrhythmia. Since patient noted to have tachy bradycardia episode, patient may need further evaluation for pacemaker. Since patient also felt to be somewhat noncompliant, a more definitive treatment of atrial fibrillation such as ablation, placement of watchman device etc. should be considered. I totally agree with Dr. Gibbons assessment that transfer to tertiary care is indicated for these evaluation. Patient may also need tertiary care evaluation for CVA especially patient may have also some kind of vasculitis going on. Bradycardia: Noted to be significant slowing of heart rate, possible sleep apnea syndrome, possible underlying sick sinus syndrome. At this point do not feel patient needs temporary or permanent pacemaker but close observation in the unit. Cerebrovascular accident: [place] to be related to paroxysmal atrial fibrillation but since patient is relatively young, with her lower chads score, patient may need to be worked up for other possible causes of cerebrovascular accident. Again tertiary care referral is indicated. Hypertension: Currently stable. Chest pain: Recent cardiac catheter results reviewed. Possibly atypical and noncardiac. Recommend proton pump inhibitor on empiric basis. - Time Time Spent: 30 to 50 Minutes - CODE STATUS was discussed, patient remains full code. Surrogate decision-maker unchanged. Multiple medical problems were addressed. More than 50% of the time spent coordinating care, discussing management plans with involved caregivers. Management plans discussed with involved personnels. Medical decision making was of moderate to high complexity , patient's has multiple comorbidities. Medications reviewed and adjusted accordingly: Yes
[2018-08-18] MEDS: FLECAINIDE ACETATE 100 MG TABLET PO SCH ×2 (16:01→22:09)
[2018-08-18] MEDS: KETOROLAC TROMETHAMINE INJ/PF 30 MG/1 ML SDV IV PRN (16:04)
[2018-08-18 19:17] LABS: INTERNATIONAL RATION (INR) 1.13; PROTHROMBIN TIME 15.1 SEC (11.4-15.4)
[2018-08-18 19:18] LABS: PARTIAL THROMBOPLASTIN TIME 51.7 SEC (23.5-35.8)
[2018-08-18] MEDS ORDERED: HEPARIN SOD (PORCINE) 1,000 UNIT/ML 10 ML VIAL IV PRN (19:20)
[2018-08-18] MEDS ORDERED: HEPARIN SODIUM,PORCINE/D5W 25,000 UNIT/250 ML RTUINJ IV PRN (19:20)
--- NOTE | 2018-08-18 19:22 | PDOC PROGRESS REPORT ---
Subjective Progress Note for:: 08/18/18 Subjective:: MARIE MELGAR is a 58 year old male with a past medical history of NSTEMI in April 2018, atrial fibrillation on Eliquis, hypertension, GERD, osteoarthritis, and was recently found left lung mass who presented with multiple complaints. Patient was noted to have acute bilateral CVA on MRI. Upon further probing, patient did admit that he ran out of Eliquis and has not been taking Eliquis for 2 days prior to onset of his symptoms. Last night, patient did have episodes of atrial flutter with heart rate in the 140s with normal blood pressures. He was given p.o. Cardizem and developed transient bradycardia in the 40s. Due to fluctuations in the heart rate, patient was moved to the ICU for closer monitoring. Patient denies dizziness or shortness of breath. He has chronic chest pain which he does say has improved today. Reason For Visit: CHEST PAIN,BRADYCARDIA Physical Exam Vital Signs: Temp Pulse Resp BP Pulse Ox 98.0 F 59 L 18 117/89 H 100 08/18/18 18:00 08/18/18 18:00 08/18/18 18:36 08/18/18 18:36 08/18/18 18:36 Intake & Output 08/17/18 08/18/18 08/19/18 06:59 06:59 06:59 Output Total 480 Balance -480 General appearance: PRESENT: no acute distress, well-developed, well-nourished Head exam: PRESENT: atraumatic, normocephalic Eye exam: PRESENT: conjunctiva pink, EOMI, PERRLA. ABSENT: scleral icterus Ear exam: PRESENT: normal external ear exam Mouth exam: PRESENT: moist, tongue midline Neck exam: ABSENT: carotid bruit, JVD, lymphadenopathy, thyromegaly Respiratory exam: PRESENT: clear to auscultation dong. ABSENT: rales, rhonchi, wheezes Cardiovascular exam: PRESENT: RRR. ABSENT: diastolic murmur, rubs, systolic murmur Pulses: PRESENT: normal dorsalis pedis pul GI/Abdominal exam: PRESENT: normal bowel sounds, soft. ABSENT: distended, guarding, mass, organolmegaly, rebound, tenderness Rectal exam: PRESENT: deferred Extremities exam: PRESENT: full ROM. ABSENT: calf tenderness, clubbing, pedal edema Neurological exam: PRESENT: alert, awake, oriented to person, oriented to place , oriented to time, oriented to situation, CN II-XII grossly intact, motor sensory deficit - Mild sensory deficit over the fingers of the left hand albeit improved from yesterday Results Laboratory Results: 08/18/18 10:30 Carbonic Acid 0.84 L HCO3/H2CO3 Ratio 24:1 ABG pH 7.49 H ABG pCO2 27.8 L ABG pO2 75.8 L ABG HCO3 20.9 ABG O2 Saturation 96.3 ABG Base Excess -1.3 FiO2 ROOM AIR Impressions: Chest X-Ray 08/17/18 12:59 IMPRESSION: 1. No significant interval changes since the prior study dated 08/13/2018. No acute findings. Head CT 08/17/18 15:17 IMPRESSION: NORMAL BRAIN CT WITHOUT CONTRAST. EVIDENCE OF ACUTE STROKE: NO. Head MRI 08/17/18 17:48 IMPRESSION: Positive for numerous lacunar acute or sub-acute infarctions involving both cerebral hemispheres as well as both cerebellar hemispheres. EVIDENCE OF ACUTE STROKE: YES. Bilateral anterior and posterior circulation Head CTA 08/18/18 00:00 IMPRESSION: NO CTA EVIDENCE OF STENOSIS OR ANEURYSM OF THE [place] OF CHILDRESS. Neck CTA 08/18/18 00:00 IMPRESSION: 1. NORMAL CTA OF THE EXTRA-CRANIAL CAROTID AND VERTEBRAL ARTERIES. 2. LEFT SUPRAHILAR AND AORTA PULMONARY WINDOW MASS WHICH HAS INCREASED IN SIZE SINCE THE PRIOR CHEST CT. Lung Scan-VQ NM 08/18/18 08:50 IMPRESSION: Perfusion images show lack of radiotracer activity in the left upper lobe apical segments consistent with ventilation-perfusion mismatch. Assessment & Plan - Diagnosis (1) Cerebrovascular accident Qualifiers: CVA mechanism: unspecified Qualified Code(s): I63.9 - Cerebral infarction, unspecified Is this a current diagnosis for this admission?: Yes Plan: MRI did show bilateral acute and subacute lacunar infarcts in both cerebellar and cerebral distributions. Patient did stop taking Eliquis 2 days prior to having neurologic symptoms. He is not a TPa cnadidate for being on anticoagulant. Discussed case with [facility] neurology and (2) Chest pain Qualifiers: Chest pain type: unspecified Qualified Code(s): R07.9 - Chest pain, unspecified Is this a current diagnosis for this admission?: Yes Plan: Improved. Troponins trending down. EKG does not show signs of acute ischemia or infarction. Cardiology following. He had a recent cath in April which only showed 10%-20% non critical stenosis in the distribution of the left main coronary. (3) Atrial fibrillation with RVR Is this a current diagnosis for this admission?: Yes Plan: Patient did develop atrial flutter with heart rate in 140s last night. He is currently rate controlled in the 60s. He received a dose of Eliquis today and will be switched to heparin drip tonight. Cardiology has started flecainide. (4) Lung mass Is this a current diagnosis for this admission?: Yes Plan: Discussed recent chest CTA reports and recently done neck CTA which showed 2 pulmonary masses. Discussed with radiologist. Pulmonology has been consulted will pursue biopsy on Monday or Monday. Patient has received a dose of Eliquis today. He will be switched to heparin tonight. - Time Time Spent with patient: 15-24 minutes
--- NOTE | 2018-08-18 20:57 | RADIOLOGY REPORT (SQ) ---
EXAM DESCRIPTION: CAROTID DOPPLER COMPLETED DATE/TIME: 08/18/2018 11:21 am REASON FOR STUDY: TIA,also left cervical tenderness COMPARISON: None. TECHNIQUE: Grayscale ultrasound, Doppler velocity and spectra, and color Doppler images acquired of the extra-cranial carotid and vertebral arteries. Images stored on PACS. LIMITATIONS: None. FINDINGS: RIGHT CAROTID CCA Velocities: Within normal limits. ICA Velocities Peak systolic 0.6 m/s. End diastolic 0.15 m/s. Proximal ICA/CCA peak systolic ratio 1.1. Spectra normal. No significant plaque. LEFT CAROTID CCA Velocities: Within normal limits. ICA Velocities Peak systolic 0.58 m/s. End diastolic 0.13 m/s. Proximal ICA/CCA peak systolic ratio 0.8. Spectra normal. No significant plaque. VERTEBRAL ARTERIES: Antegrade flow. Normal waveforms. SUBCLAVIAN ARTERIES: No finding. OTHER: No other significant finding. IMPRESSION: NO HEMODYNAMICALLY SIGNIFICANT STENOSIS. COMMENT: Quality ID #[id number]: Velocity criteria are extrapolated from the diameter data as defined by t he Society of Radiologists in Ultrasound Consensus Conference. Radiology 2003: 229; 340-346. TECHNICAL DOCUMENTATION: JOB ID: [id number] [employer]- All Rights Reserved Reading location - IP/workstation name: MANAGER OPERATING-[facility]-
[2018-08-18] MEDS: ATORVASTATIN CALCIUM 40 MG TABLET PO SCH (22:09)
[2018-08-18 23:57] LABS: APPEARANCE,URINE CLEAR; BILIRUBIN,URINE NEGATIVE (NEGATIVE); COLOR,URINE YELLOW; GLUCOSE, URINE NEGATIVE (NEGATIVE); KETONES,URINE NEGATIVE (NEGATIVE); LEUKOCYTE ESTERASE,URINE NEGATIVE (NEGATIVE); NITRITE,URINE NEGATIVE (NEGATIVE); PROTEIN,URINE NEGATIVE (NEGATIVE); URINE SPECIFIC GRAVITY 1.015
[2018-08-19] MEDS: KETOROLAC TROMETHAMINE INJ/PF 30 MG/1 ML SDV IV PRN ×3 (01:39→18:21)
[2018-08-19 03:38] LABS: CREATINE KINASE MB 0.66 ng/mL (<4.55); TROPONIN I 0.031 ng/mL
[2018-08-19 05:40] LABS: ARTERIAL BLOOD BASE EXCESS -1.4 mmol/L; ARTERIAL BLOOD H2CO3 0.96 mmol/L (1.05-1.35); ARTERIAL BLOOD HCO3 21.8 mmol/L (20-24); ARTERIAL BLOOD O2 SATURATION 96.5 % (94-98); ARTERIAL BLOOD PCO2 31.9 mmHg (35-45); ARTERIAL BLOOD PH 7.45 (7.35-7.45); ARTERIAL BLOOD TOTAL CO2 22.8 mmol/L (23-27)
[2018-08-19 05:45] LABS: ARTERIAL BLOOD FIO2 ROOM AIR
--- NOTE | 2018-08-19 06:49 | RADIOLOGY REPORT (SQ) ---
EXAM DESCRIPTION: XR CHEST 1 VIEW COMPLETED DATE/TME: 08/19/2018 06:00 CLINICAL HISTORY: 58 years Male, dyspnea COMPARISON:08/17/2018 NUMBER OF VIEWS/TECHNIQUE: 1/AP FINDINGS: Small streaky retrocardiac left lower lobar opacity, mild bihilar fullness, normal cardiac silhouette. No pneumothorax. Stable bony thorax. IMPRESSION: No significant change.
[2018-08-19] MEDS: HEPARIN SODIUM,PORCINE/D5W 25,000 UNIT/250 ML RTUINJ IV PRN (07:00)
[2018-08-19 07:11] LABS: ABSOLUTE BASOPHILS # (AUTO) 0.1 10^3/uL (0.0-0.2); ABSOLUTE EOSINOPHILS # (AUTO) 0.1 10^3/uL (0.0-0.6); ABSOLUTE MONOCYTES (AUTO) 0.9 10^3/uL (0.1-1.4); ABSOLUTE NEUT (AUTO) 4.4 10^3/uL (1.7-8.2); BASOPHILS % (AUTO) 1.4 % (0-2); EOSINOPHILS % (AUTO) 0.9 % (0-6); HEMATOCRIT 35.2 % (37.9-51.0); HEMOGLOBIN 12.5 g/dL (13.5-17.0); LYMPHOCYTES % (AUTO) 27.4 % (13-45); MEAN CORPUSCULAR HGB CONC 35.3 g/dL (32.0-36.0); MEAN CORPUSCULAR VOLUME 82 fl (80-97); MONOCYTES % (AUTO) 11.4 % (3-13); PLATELET COUNT 355 10^3/uL (150-450); RED BLOOD COUNT 4.29 10^6/uL (4.35-5.55); RED CELL DISTRIBUTION WIDTH 16.4 % (11.5-14.0); SEGMENTED NEUTROPHILS % (AUTO) 58.9 % (42-78); TOTAL CELLS COUNTED % (AUTO) 100 %; WHITE BLOOD COUNT 7.5 10^3/uL (4.0-10.5)
[2018-08-19 07:28] LABS: ALANINE AMINOTRANSFERASE 55 U/L (21-72); ALBUMIN 2.9 g/dL (3.5-5.0); ALKALINE PHOSPHATASE 119 U/L (38-126); ANION GAP 11 (5-19); ASPARTATE AMINO TRANSFERASE 28 U/L (17-59); BILIRUBIN,DIRECT 0.4 mg/dL (0.0-0.4); BILIRUBIN,TOTAL 0.9 mg/dL (0.2-1.3); BLOOD UREA NITROGEN 16 mg/dL (7-20); CALCIUM 8.9 mg/dL (8.4-10.2); CARBON DIOXIDE 21 mmol/L (22-30); CHLORIDE 103 mmol/L (98-107); CREATINE KINASE 39 U/L (55-170); GLUCOSE 82 mg/dL (75-110); PHOSPHORUS 4.1 mg/dL (2.5-4.5); POTASSIUM 3.9 mmol/L (3.6-5.0); SODIUM 134.9 mmol/L (137-145); TOTAL PROTEIN 6.4 g/dL (6.3-8.2)
[2018-08-19 07:45] LABS: CREATINE KINASE MB 0.72 ng/mL (<4.55); TROPONIN I 0.027 ng/mL
[2018-08-19] MEDS: OXYCODONE-ACETAMINOPHEN 5-325 MG TABLET PO PRN ×2 (07:48→16:12)
[2018-08-19] MEDS: NORMAL SALINE 1000 ML 1,000 ML IV PRN (08:03)
--- NOTE | 2018-08-19 10:28 | RADIOLOGY REPORT (SQ) ---
EXAM DESCRIPTION: U/S THYROID/SFT TISS HD NECK COMPLETED DATE/TIME: 08/18/2018 2:05 pm REASON FOR STUDY: left cervical tenderness, questionable small mass COMPARISON: CT angio neck soft tissues 08/18/2018 Carotid Doppler 08/18/2018 TECHNIQUE: Dynamic and static bee-scale images acquired of the thyroid gland. Selected additional c olor/power Doppler images recorded. All images stored to PACS. LIMITATIONS: Portable study done in the ICU FINDINGS: Very limited study, portable exam in the ICU. Right and left lobe thyroid measure about 3 .5 x 2 cm in size. 1 cm colloid cyst lower pole left lobe thyroid. IMPRESSION: VERY LIMITED STUDY. 1 CM COLLOID CYST LEFT LOWER POLE THYROID. TECHNICAL DOCUMENTATION: JOB ID: [id number] [employer]- All Rights Reserved Reading location - IP/workstation name: [email or web address]
[2018-08-19] MEDS: FAMOTIDINE 20 MG TABLET PO SCH ×2 (12:18→18:22)
[2018-08-19] MEDS: ASPIRIN 81 MG TABLET, ENT COATED PO SCH (12:18)
[2018-08-19] MEDS: FLECAINIDE ACETATE 100 MG TABLET PO SCH ×2 (12:19→21:54)
[2018-08-19] MEDS: SUCRALFATE 1 GM TABLET PO SCH ×4 (12:19→21:53)
[2018-08-19] MEDS: LISINOPRIL 10 MG TABLET PO SCH (12:19)
[2018-08-19] MEDS: CARBOXYMETHYLCELLULOSE SOD 0.5% 0.4 ML DROPERETTE OU SCH ×4 (12:20→21:54)
[2018-08-19] MEDS: NICOTINE 14 MG/24 HR PATCH.TD24 TD SCH (12:24)
[2018-08-19] MEDS: FLUTICASONE NASAL SPRAY 50 MCG/SPRY 120 SPRAY/16 GM NASL SCH ×2 (12:24→21:51)
[2018-08-19] MEDS: POLYETHYLENE GLYCOL 3350 POWDER 17 GM/1 PACKET PO SCH (12:24)
--- NOTE | 2018-08-19 15:01 | PDOC PROGRESS REPORT ---
Subjective Progress Note for:: 08/19/18 Subjective:: Patient seems to be doing better with gradual improvement. Patient being bothered significantly by headaches and some eye discomfort. Pt is denying any chest arm or neck discomfort. Patient denying any PND, orthopnea. Patient denied any sustained palpitations, dizziness, syncope, near syncope. Patient denying any fever chills. Patient denying any other significant discomfort. Patient is maintaining sinus rhythm. Occasional APCs and VPCs are noted. Review of systems: Rest review of systems negative. Medications: Medications have been reviewed. Reason For Visit: CHEST PAIN,BRADYCARDIA Physical Exam Vital Signs: Temp Pulse Resp BP Pulse Ox 98.3 F 65 18 127/63 H 100 08/19/18 14:28 08/19/18 14:28 08/19/18 14:28 08/19/18 14:28 08/19/18 14:28 Intake & Output 08/18/18 08/19/18 08/20/18 06:59 06:59 06:59 Intake Total 550 Output Total 900 Balance -900 550 Exam: GENERAL: well-nourished and in no acute distress. Alert and oriented x3 HEAD: Atraumatic, normocephalic. EYES: Pupils equal round and reactive to light, extraocular movements intact, sclera anicteric, conjunctiva are normal. ENT: TMs normal, nares patent, oropharynx clear without exudates. Moist mucous membranes. No oral ulcerations or bleeding gums noted NECK: supple without lymphadenopathy. Trachea is central. No cervical or axillary lymphadenopathy noted. Carotids are 2+, JVD WNL LUNGS: Respiration seems nonlabored, no significant accessory muscle action noted. Breath sounds clear to auscultation bilaterally and equal noted. No wheezes rales or rhonchi noted. No significant dullness noted on percussion. CHEST: Palpation of the chest wall shows no significant chest wall tenderness. 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 ABDOMEN: Soft, no significant tenderness appreciated, normoactive bowel sounds. No guarding, no rebound. No rigidity noted . No masses appreciated. EXTREMITIES: Pedal pulses are 1-2+, no calf tenderness noted. No clubbing or cyanosis. negative pedal edema noted NEUROLOGICAL: Focused neurological exam showed no significant neurologic deficit. Normal speech, no focal weakness appreciated. PSYCH: Normal mood, normal affect. Judgment and insight within normal limits. SKIN: No significant ecchymosis, skin is noted to be warm. MUSCULOSKELETAL EXAM: No significant acute joint swelling noted. Results Laboratory Results: 08/19/18 06:56 08/19/18 06:56 08/18/18 08/19/18 08/19/18 23:42 05:00 06:56 WBC 7.5 RBC 4.29 L Hgb 12.5 L Hct 35.2 L MCV 82 MCH 29.0 MCHC 35.3 RDW 16.4 H Plt Count 355 Seg Neutrophils % 58.9 Lymphocytes % 27.4 Monocytes % 11.4 Eosinophils % 0.9 Basophils % 1.4 Absolute Neutrophils 4.4 Absolute Lymphocytes 2.0 Absolute Monocytes 0.9 Absolute Eosinophils 0.1 Absolute Basophils 0.1 Carbonic Acid 0.96 L HCO3/H2CO3 Ratio 22:1 ABG pH 7.45 ABG pCO2 31.9 L ABG pO2 81.0 ABG HCO3 21.8 ABG O2 Saturation 96.5 ABG Base Excess -1.4 FiO2 ROOM AIR Sodium Potassium Chloride Carbon Dioxide Anion Gap BUN Creatinine Est GFR ( Amer) Est GFR (Non-Af Amer) Glucose Calcium Phosphorus Magnesium Total Bilirubin AST ALT Alkaline Phosphatase Total Protein Albumin Urine Color YELLOW Urine Appearance CLEAR Urine pH 5.0 Ur Specific [place] 1.015 Urine Protein NEGATIVE Urine Glucose (UA) NEGATIVE Urine Ketones NEGATIVE Urine Blood NEGATIVE Urine Nitrite NEGATIVE Ur Leukocyte Esterase NEGATIVE Urine WBC (Auto) 1 Urine RBC (Auto) 1 08/19/18 06:56 WBC RBC Hgb Hct MCV MCH MCHC RDW Plt Count Seg Neutrophils % Lymphocytes % Monocytes % Eosinophils % Basophils % Absolute Neutrophils Absolute Lymphocytes Absolute Monocytes Absolute Eosinophils Absolute Basophils Carbonic Acid HCO3/H2CO3 Ratio ABG pH ABG pCO2 ABG pO2 ABG HCO3 ABG O2 Saturation ABG Base Excess FiO2 Sodium 134.9 L Potassium 3.9 Chloride 103 Carbon Dioxide 21 L Anion Gap 11 BUN 16 Creatinine 1.28 H Est GFR ( Amer) > 60 Est GFR (Non-Af Amer) 57 L Glucose 82 Calcium 8.9 Phosphorus 4.1 Magnesium 2.3 Total Bilirubin 0.9 AST 28 ALT 55 Alkaline Phosphatase 119 Total Protein 6.4 Albumin 2.9 L Urine Color Urine Appearance Urine pH Ur Specific [place] Urine Protein Urine Glucose (UA) Urine Ketones Urine Blood Urine Nitrite Ur Leukocyte Esterase Urine WBC (Auto) Urine RBC (Auto) 08/19/18 08/19/18 08/19/18 02:17 02:17 06:56 Creatine Kinase 44 L 39 L CK-MB (CK-2) 0.66 Troponin I 0.031 08/19/18 06:56 Creatine Kinase CK-MB (CK-2) 0.72 Troponin I 0.027 EKG Comments: Telemetry shows sinus rhythm with occasional APCs and VPCs. Impressions: Head CT 08/17/18 15:17 IMPRESSION: NORMAL BRAIN CT WITHOUT CONTRAST. EVIDENCE OF ACUTE STROKE: NO. Head MRI 08/17/18 17:48 IMPRESSION: Positive for numerous lacunar acute or sub-acute infarctions involving both cerebral hemispheres as well as both cerebellar hemispheres. EVIDENCE OF ACUTE STROKE: YES. Bilateral anterior and posterior circulation Carotid Doppler Study 08/18/18 00:00 IMPRESSION: NO HEMODYNAMICALLY SIGNIFICANT STENOSIS. Head CTA 08/18/18 00:00 IMPRESSION: NO CTA EVIDENCE OF STENOSIS OR ANEURYSM OF THE [place] OF CHILDRESS. Neck CTA 08/18/18 00:00 IMPRESSION: 1. NORMAL CTA OF THE EXTRA-CRANIAL CAROTID AND VERTEBRAL ARTERIES. 2. LEFT SUPRAHILAR AND AORTA PULMONARY WINDOW MASS WHICH HAS INCREASED IN SIZE SINCE THE PRIOR CHEST CT. Thyroid Ultrasound 08/18/18 00:00 IMPRESSION: VERY LIMITED STUDY. 1 CM COLLOID CYST LEFT LOWER POLE THYROID. Lung Scan-VQ NM 08/18/18 08:50 IMPRESSION: Perfusion images show lack of radiotracer activity in the left upper lobe apical segments consistent with ventilation-perfusion mismatch. Chest X-Ray 08/19/18 06:00 IMPRESSION: No significant change. Assessment & Plan - Diagnosis (1) Atrial fibrillation with RVR Is this a current diagnosis for this admission?: Yes (2) Bradycardia Is this a current diagnosis for this admission?: Yes (3) Cerebrovascular accident Qualifiers: CVA mechanism: unspecified Qualified Code(s): I63.9 - Cerebral infarction, unspecified Is this a current diagnosis for this admission?: Yes (4) Hypertension Qualifiers: Hypertension type: essential hypertension Qualified Code(s): I10 - Essential (primary) hypertension Is this a current diagnosis for this admission?: Yes (5) Chest pain Qualifiers: Chest pain type: unspecified Qualified Code(s): R07.9 - Chest pain, unspecified Is this a current diagnosis for this admission?: Yes - Notes Notes: Atrial fibrillation with rapid ventricular response: Started flecainide. So far tolerating it well without any significant pro arrhythmia or QTC prolongation. Flecainide does not affect the SA node as much therefore unlikely to cause bradycardia. Monitor for any increased cardiac dysrhythmia. Since patient noted to have tachy bradycardia episode, patient may need further evaluation for pacemaker. Since patient also felt to be somewhat noncompliant, a more definitive treatment of atrial fibrillation such as ablation, placement of watchman device etc. should be considered. However this could be taken care of as an outpatient. Cerebrovascular accident: Possibly related to paroxysmal atrial fibrillation but other differential diagnoses exist. Bradycardia: Noted to be significant slowing of heart rate, possible sleep apnea syndrome, possible underlying sick sinus syndrome. At this point do not feel patient needs temporary or permanent pacemaker but close observation in the unit. Cerebrovascular accident: [place] to be related to paroxysmal atrial fibrillation but since patient is relatively young, with her lower chads score, patient may need to be worked up for other possible causes of cerebrovascular accident. Again tertiary care referral is indicated. Hypertension: Currently stable. Chest pain: Recent cardiac catheter results reviewed. Possibly atypical and noncardiac. Recommend proton pump inhibitor on empiric basis. Mediastinal and lung mass: Patient being evaluated for this by the hospitalist. - Time Time with patient: Greater than 35 minutes - CODE STATUS was discussed, patient remains full code. More than 50% of the time spent coordinating care, discussing management plans with involved caregivers. Management plans discussed with involved personnels. Medical decision making was of moderate to high complexity, patient's has multiple comorbidities. Medications reviewed and adjusted accordingly: Yes
[2018-08-19 16:24] LABS: CREATINE KINASE MB 0.87 ng/mL (<4.55); TROPONIN I 0.021 ng/mL
--- NOTE | 2018-08-19 18:53 | PDOC PROGRESS REPORT ---
Subjective Progress Note for:: 08/19/18 Subjective:: MARIE MELGAR is a 58 year old male with a past medical history of NSTEMI in April 2018, atrial fibrillation on Eliquis, hypertension, GERD, osteoarthritis, and was recently found left lung mass who presented with multiple complaints. Patient was noted to have acute bilateral CVA on MRI. Upon further probing, patient did admit that he ran out of Eliquis and has not been taking Eliquis for 2 days prior to onset of his symptoms. No acute event overnight. No episode of significant bradycardia or tachycardia overnight. He says he feels better today aside form his chronic left orbital pain which has improved. He says chest pain is much better today. No SOB. Reason For Visit: CHEST PAIN,BRADYCARDIA Physical Exam Vital Signs: Temp Pulse Resp BP Pulse Ox 98.3 F 65 18 127/63 H 100 08/19/18 14:28 08/19/18 16:00 08/19/18 16:00 08/19/18 16:00 08/19/18 16:00 Intake & Output 08/18/18 08/19/18 08/20/18 06:59 06:59 06:59 Intake Total 787 Output Total 900 Balance -900 787 General appearance: PRESENT: no acute distress, well-developed, well-nourished Head exam: PRESENT: atraumatic, normocephalic Eye exam: PRESENT: conjunctiva pink, EOMI, PERRLA. ABSENT: scleral icterus Ear exam: PRESENT: normal external ear exam Mouth exam: PRESENT: moist, tongue midline Neck exam: ABSENT: carotid bruit, JVD, lymphadenopathy, thyromegaly Respiratory exam: PRESENT: clear to auscultation dong. ABSENT: rales, rhonchi, wheezes Cardiovascular exam: PRESENT: RRR. ABSENT: diastolic murmur, rubs, systolic murmur Pulses: PRESENT: normal dorsalis pedis pul GI/Abdominal exam: PRESENT: normal bowel sounds, soft. ABSENT: distended, guarding, mass, organolmegaly, rebound, tenderness Rectal exam: PRESENT: deferred Neurological exam: PRESENT: alert, awake, oriented to person, oriented to place , oriented to time, oriented to situation, CN II-XII grossly intact. ABSENT: motor sensory deficit Results Laboratory Results: 08/19/18 06:56 08/19/18 06:56 08/18/18 08/19/18 08/19/18 23:42 05:00 06:56 WBC 7.5 RBC 4.29 L Hgb 12.5 L Hct 35.2 L MCV 82 MCH 29.0 MCHC 35.3 RDW 16.4 H Plt Count 355 Seg Neutrophils % 58.9 Lymphocytes % 27.4 Monocytes % 11.4 Eosinophils % 0.9 Basophils % 1.4 Absolute Neutrophils 4.4 Absolute Lymphocytes 2.0 Absolute Monocytes 0.9 Absolute Eosinophils 0.1 Absolute Basophils 0.1 Carbonic Acid 0.96 L HCO3/H2CO3 Ratio 22:1 ABG pH 7.45 ABG pCO2 31.9 L ABG pO2 81.0 ABG HCO3 21.8 ABG O2 Saturation 96.5 ABG Base Excess -1.4 FiO2 ROOM AIR Sodium Potassium Chloride Carbon Dioxide Anion Gap BUN Creatinine Est GFR ( Amer) Est GFR (Non-Af Amer) Glucose Calcium Phosphorus Magnesium Total Bilirubin AST ALT Alkaline Phosphatase Total Protein Albumin Urine Color YELLOW Urine Appearance CLEAR Urine pH 5.0 Ur Specific [place] 1.015 Urine Protein NEGATIVE Urine Glucose (UA) NEGATIVE Urine Ketones NEGATIVE Urine Blood NEGATIVE Urine Nitrite NEGATIVE Ur Leukocyte Esterase NEGATIVE Urine WBC (Auto) 1 Urine RBC (Auto) 1 08/19/18 06:56 WBC RBC Hgb Hct MCV MCH MCHC RDW Plt Count Seg Neutrophils % Lymphocytes % Monocytes % Eosinophils % Basophils % Absolute Neutrophils Absolute Lymphocytes Absolute Monocytes Absolute Eosinophils Absolute Basophils Carbonic Acid HCO3/H2CO3 Ratio ABG pH ABG pCO2 ABG pO2 ABG HCO3 ABG O2 Saturation ABG Base Excess FiO2 Sodium 134.9 L Potassium 3.9 Chloride 103 Carbon Dioxide 21 L Anion Gap 11 BUN 16 Creatinine 1.28 H Est GFR ( Amer) > 60 Est GFR (Non-Af Amer) 57 L Glucose 82 Calcium 8.9 Phosphorus 4.1 Magnesium 2.3 Total Bilirubin 0.9 AST 28 ALT 55 Alkaline Phosphatase 119 Total Protein 6.4 Albumin 2.9 L Urine Color Urine Appearance Urine pH Ur Specific [place] Urine Protein Urine Glucose (UA) Urine Ketones Urine Blood Urine Nitrite Ur Leukocyte Esterase Urine WBC (Auto) Urine RBC (Auto) 08/19/18 08/19/18 08/19/18 02:17 02:17 06:56 Creatine Kinase 44 L 39 L CK-MB (CK-2) 0.66 Troponin I 0.031 08/19/18 08/19/18 08/19/18 06:56 15:40 15:40 Creatine Kinase 43 L CK-MB (CK-2) 0.72 0.87 Troponin I 0.027 0.021 Impressions: Head CT 08/17/18 15:17 IMPRESSION: NORMAL BRAIN CT WITHOUT CONTRAST. EVIDENCE OF ACUTE STROKE: NO. Head MRI 08/17/18 17:48 IMPRESSION: Positive for numerous lacunar acute or sub-acute infarctions involving both cerebral hemispheres as well as both cerebellar hemispheres. EVIDENCE OF ACUTE STROKE: YES. Bilateral anterior and posterior circulation Carotid Doppler Study 08/18/18 00:00 IMPRESSION: NO HEMODYNAMICALLY SIGNIFICANT STENOSIS. Head CTA 08/18/18 00:00 IMPRESSION: NO CTA EVIDENCE OF STENOSIS OR ANEURYSM OF THE [place] OF [place]ILDRESS. Neck CTA 08/18/18 00:00 IMPRESSION: 1. NORMAL CTA OF THE EXTRA-CRANIAL CAROTID AND VERTEBRAL ARTERIES. 2. LEFT SUPRAHILAR AND AORTA PULMONARY WINDOW MASS WHICH HAS INCREASED IN SIZE SINCE THE PRIOR CHEST CT. Thyroid Ultrasound 08/18/18 00:00 IMPRESSION: VERY LIMITED STUDY. 1 CM COLLOID CYST LEFT LOWER POLE THYROID. Lung Scan-VQ NM 08/18/18 08:50 IMPRESSION: Perfusion images show lack of radiotracer activity in the left upper lobe apical segments consistent with ventilation-perfusion mismatch. Chest X-Ray 08/19/18 06:00 IMPRESSION: No significant change. Assessment & Plan - Diagnosis (1) Cerebrovascular accident Qualifiers: CVA mechanism: unspecified Qualified Code(s): I63.9 - Cerebral infarction, unspecified Is this a current diagnosis for this admission?: Yes Plan: MRI did show bilateral acute and subacute lacunar infarcts in both cerebellar and cerebral distributions. Patient did stop taking Eliquis 2 days prior to having neurologic symptoms. He is not a TPa cnadidate for being on anticoagulant. Discussed case with [facility] neurology and does agree that CVA is likely from Afib related and noncompliance to Eliquis. (2) Chest pain Qualifiers: Chest pain type: unspecified Qualified Code(s): R07.9 - Chest pain, unspecified Is this a current diagnosis for this admission?: Yes Plan: Improved. Troponins trending down. EKG does not show signs of acute ischemia or infarction. Cardiology following. He had a recent cath in April which only showed 10%-20% non critical stenosis in the distribution of the left main coronary. (3) Atrial fibrillation with RVR Is this a current diagnosis for this admission?: Yes Plan: Rate-controlled now. Hold Eliquis. Continue heparin drip for possible biopsy of mass. Started on flecainide by cardio. (4) Lung mass Is this a current diagnosis for this admission?: Yes Plan: Discussed recent chest CTA reports and recently done neck CTA which showed 2 pulmonary masses. Discussed with radiologist. Pulmonology has been consulted will pursue biopsy tomorrow or monday. Will rediscuss plan and approach with pulmonology tomorrow. - Time Time Spent with patient: 15-24 minutes
[2018-08-19] MEDS: ATORVASTATIN CALCIUM 40 MG TABLET PO SCH (21:52)
[2018-08-20] MEDS: KETOROLAC TROMETHAMINE INJ/PF 30 MG/1 ML SDV IV PRN ×4 (00:32→23:03)
[2018-08-20] MEDS: NORMAL SALINE 1000 ML 1,000 ML IV PRN ×2 (00:32→18:00)
[2018-08-20] MEDS: OXYCODONE-ACETAMINOPHEN 5-325 MG TABLET PO PRN ×4 (00:33→19:09)
[2018-08-20] MEDS: HEPARIN SODIUM,PORCINE/D5W 25,000 UNIT/250 ML RTUINJ IV PRN (02:26)
[2018-08-20 05:43] LABS: ABSOLUTE BASOPHILS # (AUTO) 0.1 10^3/uL (0.0-0.2); ABSOLUTE EOSINOPHILS # (AUTO) 0.1 10^3/uL (0.0-0.6); ABSOLUTE MONOCYTES (AUTO) 0.8 10^3/uL (0.1-1.4); ABSOLUTE NEUT (AUTO) 4.5 10^3/uL (1.7-8.2); BASOPHILS % (AUTO) 1.7 % (0-2); EOSINOPHILS % (AUTO) 1.9 % (0-6); HEMATOCRIT 32.1 % (37.9-51.0); HEMOGLOBIN 11.3 g/dL (13.5-17.0); LYMPHOCYTES % (AUTO) 26.1 % (13-45); MEAN CORPUSCULAR HEMOGLOBIN 29.2 pg (27.0-33.4); MEAN CORPUSCULAR HGB CONC 35.1 g/dL (32.0-36.0); MEAN CORPUSCULAR VOLUME 83 fl (80-97); MONOCYTES % (AUTO) 10.7 % (3-13); PLATELET COUNT 299 10^3/uL (150-450); RED BLOOD COUNT 3.87 10^6/uL (4.35-5.55); RED CELL DISTRIBUTION WIDTH 16.2 % (11.5-14.0); SEGMENTED NEUTROPHILS % (AUTO) 59.6 % (42-78); TOTAL CELLS COUNTED % (AUTO) 100 %; WHITE BLOOD COUNT 7.5 10^3/uL (4.0-10.5)
[2018-08-20 06:06] LABS: ANION GAP 7 (5-19); BLOOD UREA NITROGEN 16 mg/dL (7-20); CALCIUM 8.4 mg/dL (8.4-10.2); CARBON DIOXIDE 20 mmol/L (22-30); CHLORIDE 110 mmol/L (98-107); GLUCOSE 91 mg/dL (75-110); POTASSIUM 4.5 mmol/L (3.6-5.0); SODIUM 136.9 mmol/L (137-145)
[2018-08-20 06:12] LABS: INTERNATIONAL RATION (INR) 1.03
[2018-08-20 06:14] LABS: PARTIAL THROMBOPLASTIN TIME 74.2 SEC (23.5-35.8)
[2018-08-20 06:54] LABS: ARTERIAL BLOOD BASE EXCESS -3.8 mmol/L; ARTERIAL BLOOD FIO2 ROOM AIR; ARTERIAL BLOOD H2CO3 0.87 mmol/L (1.05-1.35); ARTERIAL BLOOD HCO3 19.3 mmol/L (20-24); ARTERIAL BLOOD O2 SATURATION 97.3 % (94-98); ARTERIAL BLOOD PCO2 28.9 mmHg (35-45); ARTERIAL BLOOD PH 7.44 (7.35-7.45); ARTERIAL BLOOD PO2 90.7 mmHg (80-100); ARTERIAL BLOOD TOTAL CO2 20.2 mmol/L (23-27)
--- NOTE | 2018-08-20 08:22 | RADIOLOGY REPORT (SQ) ---
EXAM DESCRIPTION: CHEST SINGLE VIEW COMPLETED DATE/TIME: 08/20/2018 8:08 am REASON FOR STUDY: copd COMPARISON: AP chest 08/19/2018, 08/17/2018, 08/13/2018 CT chest 08/02/2018 EXAM PARAMETERS: NUMBER OF VIEWS: One view. TECHNIQUE: Single frontal radiographic view of the chest acquired. RADIATION DOSE: NA LIMITATIONS: None. FINDINGS: LUNGS AND PLEURA: There is a left upper lobe lung parenchymal mass superimposed on the pos terior left 1st rib MEDIASTINUM AND HILAR STRUCTURES: Left hilar mass unchanged HEART AND VASCULAR STRUCTURES: Heart normal in size. Normal vasculature. BONES: No acute findings. HARDWARE: None in the chest. OTHER: No other significant finding. IMPRESSION: Left upper lobe mass and left hilar enlargement unchanged from CT angio chest 08/02/2018 TECHNICAL DOCUMENTATION: JOB ID: [id number] [employer]- All Rights Reserved Reading location - IP/workstation name: [email or web address]
[2018-08-20] MEDS: ASPIRIN 81 MG TABLET, ENT COATED PO SCH (09:05)
[2018-08-20] MEDS: NICOTINE 14 MG/24 HR PATCH.TD24 TD SCH (09:16)
[2018-08-20] MEDS: FLUTICASONE NASAL SPRAY 50 MCG/SPRY 120 SPRAY/16 GM NASL SCH ×2 (09:16→23:03)
[2018-08-20] MEDS: POLYETHYLENE GLYCOL 3350 POWDER 17 GM/1 PACKET PO SCH (09:17)
[2018-08-20] MEDS: ACETAMINOPHEN 325 MG TABLET PO PRN ×2 (09:52→22:05)
[2018-08-20] MEDS: SUCRALFATE 1 GM TABLET PO SCH ×5 (12:09→23:04)
[2018-08-20] MEDS: FAMOTIDINE 20 MG TABLET PO SCH (12:09)
[2018-08-20] MEDS: CARBOXYMETHYLCELLULOSE SOD 0.5% 0.4 ML DROPERETTE OU SCH ×4 (12:09→23:04)
[2018-08-20] MEDS: FLECAINIDE ACETATE 100 MG TABLET PO SCH ×2 (12:16→23:04)
[2018-08-20] MEDS: AMLODIPINE BESYLATE 5 MG TABLET PO SCH (13:10)
[2018-08-20] MEDS: LISINOPRIL 10 MG TABLET PO SCH (13:11)
--- NOTE | 2018-08-20 13:33 | PDOC PROGRESS REPORT ---
Subjective Progress Note for:: 08/20/18 Subjective:: MARIE MELGAR is a 58 year old male with a past medical history of NSTEMI in April 2018, atrial fibrillation on Eliquis, hypertension, GERD, osteoarthritis, and was recently found left lung mass who presented with multiple complaints. Patient was noted to have acute bilateral CVA on MRI. Upon further probing, patient did admit that he ran out of Eliquis and has not been taking Eliquis for 2 days prior to onset of his symptoms. No acute event overnight. No recurrence of significant bradycardia or tachycardia so far. He was scheduled for possible CT-guided biopsy of his lung mass today. Discussed risks and benefits of procedure with patient. He says he is having a bout of his chronic chest pain today. He says he wants to pursue the biopsy but prefers to do it tomorrow because of his chest pain. He had a recent cath in April with results as mentioned on assessment and was deemed likely to have episodic chest pain from coronary vasospasm. He carlos a being tried on calcium channel blockers. Will add amlodipine today and see if his pain responds to the CCB. Will also add Protonix for possible GERD. Will hold off on biopsy today. Reason For Visit: CHEST PAIN,BRADYCARDIA Physical Exam Vital Signs: Temp Pulse Resp BP Pulse Ox 99.5 F 62 18 121/70 100 08/20/18 12:14 08/20/18 12:14 08/20/18 12:14 08/20/18 12:14 08/20/18 12:14 Intake & Output 08/19/18 08/20/18 08/21/18 06:59 06:59 06:59 Intake Total 1980 320 Output Total 900 Balance -900 1980 320 Weight 198 lb 6.656 oz General appearance: PRESENT: no acute distress, well-developed, well-nourished Head exam: PRESENT: atraumatic, normocephalic Eye exam: PRESENT: conjunctiva pink, EOMI, PERRLA. ABSENT: scleral icterus Ear exam: PRESENT: normal external ear exam Mouth exam: PRESENT: moist, tongue midline Neck exam: ABSENT: carotid bruit, JVD, lymphadenopathy, thyromegaly Respiratory exam: PRESENT: clear to auscultation dong. ABSENT: rales, rhonchi, wheezes Cardiovascular exam: PRESENT: RRR. ABSENT: diastolic murmur, rubs, systolic murmur Pulses: PRESENT: normal dorsalis pedis pul GI/Abdominal exam: PRESENT: normal bowel sounds, soft. ABSENT: distended, guarding, mass, organolmegaly, rebound, tenderness Rectal exam: PRESENT: deferred Neurological exam: PRESENT: alert, awake, oriented to person, oriented to place , oriented to time, oriented to situation, CN II-XII grossly intact. ABSENT: motor sensory deficit Results Laboratory Results: 08/20/18 05:24 08/20/18 05:24 08/20/18 08/20/18 08/20/18 05:24 05:24 06:05 WBC 7.5 RBC 3.87 L Hgb 11.3 L Hct 32.1 L MCV 83 MCH 29.2 MCHC 35.1 RDW 16.2 H Plt Count 299 Seg Neutrophils % 59.6 Lymphocytes % 26.1 Monocytes % 10.7 Eosinophils % 1.9 Basophils % 1.7 Absolute Neutrophils 4.5 Absolute Lymphocytes 2.0 Absolute Monocytes 0.8 Absolute Eosinophils 0.1 Absolute Basophils 0.1 Carbonic Acid 0.87 L HCO3/H2CO3 Ratio 22:1 ABG pH 7.44 ABG pCO2 28.9 L ABG pO2 90.7 ABG HCO3 19.3 L ABG O2 Saturation 97.3 ABG Base Excess -3.8 FiO2 ROOM AIR Sodium 136.9 L Potassium 4.5 Chloride 110 H Carbon Dioxide 20 L Anion Gap 7 BUN 16 Creatinine 1.16 Est GFR ( Amer) > 60 Est GFR (Non-Af Amer) > 60 Glucose 91 Calcium 8.4 Magnesium 2.2 08/19/18 08/19/18 08/19/18 02:17 02:17 06:56 Creatine Kinase 44 L 39 L CK-MB (CK-2) 0.66 Troponin I 0.031 08/19/18 08/19/18 08/19/18 06:56 15:40 15:40 Creatine Kinase 43 L CK-MB (CK-2) 0.72 0.87 Troponin I 0.027 0.021 Impressions: Head CT 08/17/18 15:17 IMPRESSION: NORMAL BRAIN CT WITHOUT CONTRAST. EVIDENCE OF ACUTE STROKE: NO. Head MRI 08/17/18 17:48 IMPRESSION: Positive for numerous lacunar acute or sub-acute infarctions involving both cerebral hemispheres as well as both cerebellar hemispheres. EVIDENCE OF ACUTE STROKE: YES. Bilateral anterior and posterior circulation Carotid Doppler Study 08/18/18 00:00 IMPRESSION: NO HEMODYNAMICALLY SIGNIFICANT STENOSIS. Head CTA 08/18/18 00:00 IMPRESSION: NO CTA EVIDENCE OF STENOSIS OR ANEURYSM OF THE [place] OF [place]ILDRESS. Neck CTA 08/18/18 00:00 IMPRESSION: 1. NORMAL CTA OF THE EXTRA-CRANIAL CAROTID AND VERTEBRAL ARTERIES. 2. LEFT SUPRAHILAR AND AORTA PULMONARY WINDOW MASS WHICH HAS INCREASED IN SIZE SINCE THE PRIOR CHEST CT. Thyroid Ultrasound 08/18/18 00:00 IMPRESSION: VERY LIMITED STUDY. 1 CM COLLOID CYST LEFT LOWER POLE THYROID. Lung Scan-VQ NM 08/18/18 08:50 IMPRESSION: Perfusion images show lack of radiotracer activity in the left upper lobe apical segments consistent with ventilation-perfusion mismatch. Chest X-Ray 08/20/18 06:00 IMPRESSION: Left upper lobe mass and left hilar enlargement unchanged from CT angio chest 08/02/2018 Assessment & Plan - Diagnosis (1) Cerebrovascular accident Qualifiers: CVA mechanism: unspecified Qualified Code(s): I63.9 - Cerebral infarction, unspecified Is this a current diagnosis for this admission?: Yes Plan: MRI did show bilateral acute and subacute lacunar infarcts in both cerebellar and cerebral distributions. Patient did stop taking Eliquis 2 days prior to having neurologic symptoms. He is not a TPA candidate for being on anticoagulant. Discussed case with [facility] neurology and does agree that CVA is likely from Afib related and noncompliance to Eliquis. Eliquis on hold for contemplated biopsy. Continue heparin drip. (2) Chest pain Qualifiers: Chest pain type: unspecified Qualified Code(s): R07.9 - Chest pain, unspecified Is this a current diagnosis for this admission?: Yes Plan: Improved. Troponins trending down. EKG does not show signs of acute ischemia or infarction. Cardiology following. He had a recent cath in April which only showed 10%-20% non critical stenosis in the distribution of the left main coronary. He was deemed to be having chest pain from coronary vasospasm. Will add amlodipine 5 mg daily today. Reduce lisinopril to 20 mg daily with the addition of amlodipine. Protonix also added. (3) Atrial fibrillation with RVR Is this a current diagnosis for this admission?: Yes Plan: Rate-controlled now. Hold Eliquis. Continue heparin drip for possible biopsy of mass. Started on flecainide by cardio. (4) Lung mass Is this a current diagnosis for this admission?: Yes Plan: Reschedule biopsy tomorrow due reasons mentioned above. - Time Time Spent with patient: 25-34 minutes
--- NOTE | 2018-08-20 20:04 | PDOC PROGRESS REPORT ---
Subjective Progress Note for:: 08/20/18 Subjective:: Patient seems to be doing better with gradual improvement. Patient being bothered significantly by headaches and some eye discomfort, however this symptom has also improved. Pt is denying any chest arm or neck discomfort. Patient denying any PND, orthopnea. Patient denied any sustained palpitations, dizziness, syncope, near syncope. Patient denying any fever chills. Patient denying any other significant discomfort. Patient is maintaining sinus rhythm. Occasional APCs and VPCs are noted. Review of systems: Rest review of systems negative. Medications: Medications have been reviewed. Reason For Visit: CHEST PAIN,BRADYCARDIA Physical Exam Vital Signs: Temp Pulse Resp BP Pulse Ox 99.5 F 59 L 18 121/70 100 08/20/18 12:14 08/20/18 14:00 08/20/18 12:14 08/20/18 12:14 08/20/18 12:14 Intake & Output 08/19/18 08/20/18 08/21/18 06:59 06:59 06:59 Intake Total 1980 1819 Output Total 900 Balance -900 1980 1819 Weight 90 kg Exam: GENERAL: well-nourished and in no acute distress. Alert and oriented x3 HEAD: Atraumatic, normocephalic. EYES: Pupils equal round and reactive to light, extraocular movements intact, sclera anicteric, conjunctiva are normal. ENT: TMs normal, nares patent, oropharynx clear without exudates. Moist mucous membranes. No oral ulcerations or bleeding gums noted NECK: supple without lymphadenopathy. Trachea is central. No cervical or axillary lymphadenopathy noted. Carotids are 2+, JVD WNL LUNGS: Respiration seems nonlabored, no significant accessory muscle action noted. Breath sounds clear to auscultation bilaterally and equal noted. No wheezes rales or rhonchi noted. No significant dullness noted on percussion. CHEST: Palpation of the chest wall shows no significant chest wall tenderness. 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 ABDOMEN: Soft, no significant tenderness appreciated, normoactive bowel sounds. No guarding, no rebound. No rigidity noted . No masses appreciated. EXTREMITIES: Pedal pulses are 1-2+, no calf tenderness noted. No clubbing or cyanosis. negative pedal edema noted NEUROLOGICAL: Focused neurological exam showed no significant neurologic deficit. Normal speech, no focal weakness appreciated. PSYCH: Normal mood, normal affect. Judgment and insight within normal limits. SKIN: No significant ecchymosis, skin is noted to be warm. MUSCULOSKELETAL EXAM: No significant acute joint swelling noted. Results Laboratory Results: 08/20/18 05:24 08/20/18 05:24 08/20/18 08/20/18 08/20/18 05:24 05:24 06:05 WBC 7.5 RBC 3.87 L Hgb 11.3 L Hct 32.1 L MCV 83 MCH 29.2 MCHC 35.1 RDW 16.2 H Plt Count 299 Seg Neutrophils % 59.6 Lymphocytes % 26.1 Monocytes % 10.7 Eosinophils % 1.9 Basophils % 1.7 Absolute Neutrophils 4.5 Absolute Lymphocytes 2.0 Absolute Monocytes 0.8 Absolute Eosinophils 0.1 Absolute Basophils 0.1 Carbonic Acid 0.87 L HCO3/H2CO3 Ratio 22:1 ABG pH 7.44 ABG pCO2 28.9 L ABG pO2 90.7 ABG HCO3 19.3 L ABG O2 Saturation 97.3 ABG Base Excess -3.8 FiO2 ROOM AIR Sodium 136.9 L Potassium 4.5 Chloride 110 H Carbon Dioxide 20 L Anion Gap 7 BUN 16 Creatinine 1.16 Est GFR ( Amer) > 60 Est GFR (Non-Af Amer) > 60 Glucose 91 Calcium 8.4 Magnesium 2.2 08/19/18 08/19/18 08/19/18 02:17 02:17 06:56 Creatine Kinase 44 L 39 L CK-MB (CK-2) 0.66 Troponin I 0.031 08/19/18 08/19/18 08/19/18 06:56 15:40 15:40 Creatine Kinase 43 L CK-MB (CK-2) 0.72 0.87 Troponin I 0.027 0.021 Impressions: Head CT 08/17/18 15:17 IMPRESSION: NORMAL BRAIN CT WITHOUT CONTRAST. EVIDENCE OF ACUTE STROKE: NO. Head MRI 08/17/18 17:48 IMPRESSION: Positive for numerous lacunar acute or sub-acute infarctions involving both cerebral hemispheres as well as both cerebellar hemispheres. EVIDENCE OF ACUTE STROKE: YES. Bilateral anterior and posterior circulation Carotid Doppler Study 08/18/18 00:00 IMPRESSION: NO HEMODYNAMICALLY SIGNIFICANT STENOSIS. Head CTA 08/18/18 00:00 IMPRESSION: NO CTA EVIDENCE OF STENOSIS OR ANEURYSM OF THE [place] OF CHILDRESS. Neck CTA 08/18/18 00:00 IMPRESSION: 1. NORMAL CTA OF THE EXTRA-CRANIAL CAROTID AND VERTEBRAL ARTERIES. 2. LEFT SUPRAHILAR AND AORTA PULMONARY WINDOW MASS WHICH HAS INCREASED IN SIZE SINCE THE PRIOR CHEST CT. Thyroid Ultrasound 08/18/18 00:00 IMPRESSION: VERY LIMITED STUDY. 1 CM COLLOID CYST LEFT LOWER POLE THYROID. Lung Scan-VQ NM 08/18/18 08:50 IMPRESSION: Perfusion images show lack of radiotracer activity in the left upper lobe apical segments consistent with ventilation-perfusion mismatch. Chest X-Ray 08/20/18 06:00 IMPRESSION: Left upper lobe mass and left hilar enlargement unchanged from CT angio chest 08/02/2018 Assessment & Plan - Diagnosis (1) Atrial fibrillation with RVR Is this a current diagnosis for this admission?: Yes (2) Bradycardia Is this a current diagnosis for this admission?: Yes (3) Cerebrovascular accident Qualifiers: CVA mechanism: unspecified Qualified Code(s): I63.9 - Cerebral infarction, unspecified Is this a current diagnosis for this admission?: Yes (4) Hypertension Qualifiers: Hypertension type: essential hypertension Qualified Code(s): I10 - Essential (primary) hypertension Is this a current diagnosis for this admission?: Yes (5) Chest pain Qualifiers: Chest pain type: unspecified Qualified Code(s): R07.9 - Chest pain, unspecified Is this a current diagnosis for this admission?: Yes (6) Sleep apnea syndrome Qualifiers: Sleep apnea type: unspecified type Qualified Code(s): G47.30 - Sleep apnea , unspecified Is this a current diagnosis for this admission?: Yes - Notes Notes: Atrial fibrillation with rapid ventricular response: Continue flecainide at current dose. So far tolerating it well without any significant pro arrhythmia or QTC prolongation. Since patient also felt to be somewhat noncompliant, a more definitive treatment of atrial fibrillation such as ablation, placement of watchman device etc. should be considered. However this could be taken care of as an outpatient. Cerebrovascular accident: Possibly related to paroxysmal atrial fibrillation but other differential diagnoses exist. Bradycardia: Noted to be significant slowing of heart rate, possible sleep apnea syndrome, possible underlying sick sinus syndrome. At this point do not feel patient needs temporary or permanent pacemaker but close observation in the unit. Improved. Cerebrovascular accident: [place] to be related to paroxysmal atrial fibrillation, recommend considering chronic anticoagulation on discharge, since patient is relatively young, patient may need to be worked up for other possible causes of cerebrovascular accident. Hypertension: Currently stable. Chest pain: Recent cardiac catheter results reviewed. Possibly atypical and noncardiac. Recommend proton pump inhibitor on empiric basis. Mediastinal and lung mass: Patient being evaluated for this by the hospitalist. I am told patient is being scheduled for CT-guided biopsy of the mass. Sleep apnea syndrome: Patient has history of sleep apnea syndrome. Discussed association of atrial fibrillation and stroke with sleep apnea. Patient does have a CPAP machine but was noted to be noncompliant. Patient advised to improve compliance. Dr. Corea similar to cover tomorrow. - Time Time with patient: Greater than 35 minutes - CODE STATUS was discussed, patient remains full code. More than 50% of the time spent coordinating care, discussing management plans with involved caregivers. Management plans discussed with involved personnels. Medical decision making was of moderate to high complexity, patient's has multiple comorbidities. Medications reviewed and adjusted accordingly: Yes
[2018-08-20] MEDS: ATORVASTATIN CALCIUM 40 MG TABLET PO SCH (23:04)
[2018-08-21] MEDS: OXYCODONE-ACETAMINOPHEN 5-325 MG TABLET PO PRN ×3 (01:09→15:55)
[2018-08-21] MEDS: HEPARIN SODIUM,PORCINE/D5W 25,000 UNIT/250 ML RTUINJ IV PRN (01:40)
[2018-08-21] MEDS: NORMAL SALINE 1000 ML 1,000 ML IV PRN ×3 (03:18→23:07)
[2018-08-21] MEDS: KETOROLAC TROMETHAMINE INJ/PF 30 MG/1 ML SDV IV PRN ×3 (05:31→20:25)
[2018-08-21] MEDS: PANTOPRAZOLE SODIUM 40 MG VIAL IV SCH (09:40)
[2018-08-21] MEDS: ASPIRIN 81 MG TABLET, ENT COATED PO SCH (09:40)
[2018-08-21] MEDS: AMLODIPINE BESYLATE 5 MG TABLET PO SCH (09:41)
[2018-08-21] MEDS: SUCRALFATE 1 GM TABLET PO SCH ×4 (09:41→22:57)
[2018-08-21] MEDS: NICOTINE 14 MG/24 HR PATCH.TD24 TD SCH (09:42)
[2018-08-21] MEDS: FLUTICASONE NASAL SPRAY 50 MCG/SPRY 120 SPRAY/16 GM NASL SCH ×2 (09:42→22:56)
[2018-08-21] MEDS: POLYETHYLENE GLYCOL 3350 POWDER 17 GM/1 PACKET PO SCH (09:42)
[2018-08-21] MEDS: CARBOXYMETHYLCELLULOSE SOD 0.5% 0.4 ML DROPERETTE OU SCH ×4 (09:44→22:57)
[2018-08-21] MEDS: FLECAINIDE ACETATE 100 MG TABLET PO SCH ×2 (09:48→22:57)
--- NOTE | 2018-08-21 09:53 | PDOC PROGRESS REPORT ---
Subjective Progress Note for:: 08/21/18 Subjective:: 58-year-old male past medical history of an NSTEMI 04/2018, A. fib on Eliquis, hypertension, GERD, arthritis and recently found left lung mass who was admitted on 08/18/2018. Patient was found to have a CVA based on MRI of the head. He has history of A. fib and was supposed to take Eliquis however he states that he was not [facility]. CVA was thought to have been caused due to A. fib. Patient was found to have a left lung mass and currently pending biopsy. 08/21/2018. On my encounter today patient is laying in his bed not in any acute distress he states he cannot get a good night sleep due to left eye pain and left groin pain. Patient was scheduled for lung biopsy today however due to some miscommunication between radiology and nursing staff his heparin was not held. Patient is scheduled to have his lung biopsy tomorrow at 1 PM. Patient denies any fever, chills, shortness of breath, nausea, vomiting, abdominal pain, diarrhea, constipation or any urinary symptoms. Reason For Visit: CHEST PAIN,BRADYCARDIA Physical Exam Vital Signs: Temp Pulse Resp BP Pulse Ox 97.7 F 54 L 20 139/66 H 97 08/21/18 07:46 08/21/18 07:46 08/21/18 07:46 08/21/18 07:46 08/21/18 07:46 Intake & Output 08/20/18 08/21/18 08/22/18 06:59 06:59 06:59 Intake Total 1980 2982 Balance 1980 298 Weight 90 kg 91 kg General appearance: PRESENT: no acute distress, well-developed, well-nourished Head exam: PRESENT: atraumatic, normocephalic Eye exam: PRESENT: conjunctiva pink, EOMI, PERRLA. ABSENT: scleral icterus Ear exam: PRESENT: normal external ear exam Mouth exam: PRESENT: moist, tongue midline Neck exam: ABSENT: carotid bruit, JVD, lymphadenopathy, thyromegaly Respiratory exam: PRESENT: clear to auscultation dong. ABSENT: rales, rhonchi, wheezes Cardiovascular exam: PRESENT: RRR. ABSENT: diastolic murmur, rubs, systolic murmur Pulses: PRESENT: normal dorsalis pedis pul Vascular exam: PRESENT: normal capillary refill GI/Abdominal exam: PRESENT: normal bowel sounds, soft. ABSENT: distended, guarding, mass, organolmegaly, rebound, tenderness Rectal exam: PRESENT: deferred Extremities exam: PRESENT: full ROM. ABSENT: calf tenderness, clubbing, pedal edema Neurological exam: PRESENT: alert, awake, oriented to person, oriented to place , oriented to time, oriented to situation, CN II-XII grossly intact. ABSENT: motor sensory deficit Psychiatric exam: PRESENT: appropriate affect, normal mood. ABSENT: homicidal ideation, suicidal ideation Skin exam: PRESENT: dry, intact, warm. ABSENT: cyanosis, rash Results Laboratory Results: 08/20/18 05:24 08/20/18 05:24 08/19/18 08/19/18 08/19/18 02:17 02:17 06:56 Creatine Kinase 44 L 39 L CK-MB (CK-2) 0.66 Troponin I 0.031 08/19/18 08/19/18 08/19/18 06:56 15:40 15:40 Creatine Kinase 43 L CK-MB (CK-2) 0.72 0.87 Troponin I 0.027 0.021 Impressions: Head CT 08/17/18 15:17 IMPRESSION: NORMAL BRAIN CT WITHOUT CONTRAST. EVIDENCE OF ACUTE STROKE: NO. Head MRI 08/17/18 17:48 IMPRESSION: Positive for numerous lacunar acute or sub-acute infarctions involving both cerebral hemispheres as well as both cerebellar hemispheres. EVIDENCE OF ACUTE STROKE: YES. Bilateral anterior and posterior circulation Carotid Doppler Study 08/18/18 00:00 IMPRESSION: NO HEMODYNAMICALLY SIGNIFICANT STENOSIS. Head CTA 08/18/18 00:00 IMPRESSION: NO CTA EVIDENCE OF STENOSIS OR ANEURYSM OF THE [place] OF CHILDRESS. Neck CTA 08/18/18 00:00 IMPRESSION: 1. NORMAL CTA OF THE EXTRA-CRANIAL CAROTID AND VERTEBRAL ARTERIES. 2. LEFT SUPRAHILAR AND AORTA PULMONARY WINDOW MASS WHICH HAS INCREASED IN SIZE SINCE THE PRIOR CHEST CT. Thyroid Ultrasound 08/18/18 00:00 IMPRESSION: VERY LIMITED STUDY. 1 CM COLLOID CYST LEFT LOWER POLE THYROID. Lung Scan-VQ NM 08/18/18 08:50 IMPRESSION: Perfusion images show lack of radiotracer activity in the left upper lobe apical segments consistent with ventilation-perfusion mismatch. Chest X-Ray 08/20/18 06:00 IMPRESSION: Left upper lobe mass and left hilar enlargement unchanged from CT angio chest 08/02/2018 Assessment & Plan - Diagnosis (1) Cerebrovascular accident Qualifiers: CVA mechanism: unspecified Qualified Code(s): I63.9 - Cerebral infarction, unspecified Is this a current diagnosis for this admission?: Yes Plan: MRI head on 08/17/2018 was positive for numerous lacunar acute or subacute infarctions involving both cerebral and cerebellar hemispheres. Carotid Doppler was negative, head CT was also negative. Patient was not compliant with his Eliquis for the underlying A. fib which may have caused this CVA. Not a TPA candidate due to being on anticoagulation for underlying A. fib. Continue aspirin, high intensity statin. Eliquis on hold due to pending lung biopsy. Continue heparin drip. Continue PT OT ST. (2) Chest pain Qualifiers: Chest pain type: unspecified Qualified Code(s): R07.9 - Chest pain, unspecified Is this a current diagnosis for this admission?: Yes Plan: Improving. Troponins trending down. Possibly atypical or noncardiac. Workup for [place] negative on this admission. History of NSTEMI April 2018. Cath in April 2018 showed 10-20% stenosis in LMA. Echo on showed normal ejection fraction, left ventricular hypertrophy. Chest pain was deemed to be possibly due to coronary vasospasm. Amlodipine 5 mg and and Protonix was started yesterday. Cardiology following. (3) Atrial fibrillation with RVR Is this a current diagnosis for this admission?: Yes Plan: [id number] Score 3. Rate controlled. Eliquis is on hold for pending lung biopsy. Continue heparin drip. Started on flecainide by cardiology. Tolerating well. Cardiology following. (4) Lung mass Is this a current diagnosis for this admission?: Yes Plan: Left upper lobe. Pending lung biopsy. Patient is a current smoker. Advised on quitting smoking. (5) Tobacco abuse Is this a current diagnosis for this admission?: Yes Plan: Counseled on quitting. Continue nicotine patch. (6) Bradycardia Is this a current diagnosis for this admission?: Yes Plan: Stable. May be due to underlying sleep apnea or a sick sinus syndrome as per cardiology note. No intervention at this point as per cardiology recommendation. Outpatient cardiology follow-up. (7) Eye pain Qualifiers: Laterality: left Qualified Code(s): H57.12 - Ocular pain, left eye Is this a current diagnosis for this admission?: No Plan: Patient was worked up for GCA and previous admission. Ophthalmology was consulted and patient was deemed to be low risk for GCA. MRI head does not show any abnormalities in the orbits. Continue supportive measures. Patient denies any visual changes. (8) GERD (gastroesophageal reflux disease) Is this a current diagnosis for this admission?: Yes Plan: Continue Protonix. Patient denies any melena hematochezia or any recent weight loss. H&H is stable. Outpatient cardiology follow-up (9) Hypertension Qualifiers: Hypertension type: essential hypertension Qualified Code(s): I10 - Essential (primary) hypertension Is this a current diagnosis for this admission?: Yes Plan: Euvolemic, normotensive, continue amlodipine, lisinopril. Adjust medications as needed.
[2018-08-21] MEDS ORDERED: LISINOPRIL 10 MG TABLET PO SCH (10:00)
--- NOTE | 2018-08-21 15:42 | PDOC CONSULTATION ---
Consultation Consult Date: 08/18/18 Attending physician:: ANANBEL AREVALO Consult reason:: lung mass History of Present Illness Admission Date/PCP: 08/17/18 18:02 FRANCINE LUCERO DO History of Present Illness: MARIE MELGAR is a 58 year old male made with tachycardia angina-like chest pain was placed in the ICU he had recently had a non-STEMI in April on this occasion we are trying to rule out a second DE and to stabilize his tachycardia however chest x-ray also revealed bilateral hilar adenopathy and a left lung mass. The mass is quite peripheral abuts the pleura. Patient poor historian but admits to having smoked a pack a day this 35 years denies any having any history of chronic lung disease as a child or adolescent he missed exposure to passive smoke as a child as well as an adult. No pets no recent travel normally slept on 2-3 pillows but recent has been sleeping in a 45 degree angle recently has been waking up at night short of breath and coughing as well as having edema. He had no comment in regards to snoring. Past Medical History Cardiac Medical History: Reports: Myocardial Infarction - Non-STEMI April 2016, Hypertension Denies: Congestive Heart Failure, Coronary Artery Disease Pulmonary Medical History: Reports: Pneumonia Denies: Asthma, Bronchitis, Chronic Obstructive Pulmonary Disease (COPD) Neurological Medical History: Denies: Seizures GI Medical History: Reports: Gastroesophageal Reflux Disease Musculoskeltal Medical History: Reports: Arthritis - osteoarthritis Psychiatric Medical History: Denies: Depression Hematology: Denies: Anemia Social History Information Source: Patient, [facility] Records Smoking Status: Unknown if Ever Smoked Cigarettes Packs Per Day: 0.2 Number of Years Smokin Last Time Smoked: last week Frequency of Alcohol Use: Occasional Hx Recreational Drug Use: Yes Drugs: Marijuana Hx Prescription Drug Abuse: No Have you had any respiratory illnesses as a child?: No Have you been exposed to any sick contacts recently?: No Have you had any recent respiratory illnesses?: No Have you travelled outside of [place] in the past 12 months?: No - Advance Directive Resuscitation Status: Full Code Family History Family History: CAD, Hypertension Parental Family History Reviewed: Yes Children Family History Reviewed: Yes Sibling(s) Family History Reviewed.: Yes Medication/Allergy Home Medications: Atorvastatin Calcium [Lipitor 40 mg Tablet] 40 mg PO QHS 08/01/18 Lisinopril [Prinivil 40 mg Tablet] 40 mg PO DAILY 08/01/18 Polyethylene Glycol 3350 [Miralax Powder 17 gm/Packet] 1 packet PO DAILY Sildenafil Citrate [Viagra] 100 mg PO PRN PRN 08/01/18 Apixaban [Eliquis 5 mg Tablet] 5 mg PO BID #60 tablet 08/03/18 Aspirin [Ecotrin 81 mg EC Tablet] 81 mg PO DAILY tabec 08/03/18 Carboxymethylcellulose Sodium [Refresh Plus 0.5% Oph Soln 0.4 ml Droperette] 1 drop OU QID #1 droperette 08/03/18 Diltiazem HCl [Diltiazem 12Hr ER] 120 mg PO BID #60 cap.er.12h 08/03/18 Fluticasone Propionate [Flonase Nasal [place] 50 Mcg/[place] 16 gm] 2 sprays NASL Q12 #1 inhaler 08/03/18 Nicotine [Nicoderm 14 mg/24 Hr Transdermal Patch] 1 each TD DAILY #30 patch.td24 08/03/18 Famotidine [Pepcid 20 mg Tablet] 20 mg PO BID #20 tablet 08/13/18 Sucralfate [Carafate 1 gm Tablet] 1 gm PO QID #20 tablet 08/13/18 Acetaminophen [Tylenol 325 mg Tablet] 650 mg PO Q4HP PRN 08/18/18 Allergies/Adverse Reactions: meloxicam Allergy (Intermediate, Verified 04/20/18 17:02) Dizziness pentazocine Adverse Reaction (Intermediate, Verified 04/20/18 17:02) LIGHTHEADEDNESS metoclopramide Adverse Reaction (Verified 04/20/18 17:02) UNKNOWN tamsulosin Adverse Reaction (Verified 04/20/18 17:02) UNKNOWN Review of Systems Constitutional: PRESENT: headache(s). ABSENT: night sweats Eyes: ABSENT: visual disturbances Ears: ABSENT: hearing changes Nose, Mouth, and Throat: ABSENT: mouth pain, sore throat Cardiovascular: PRESENT: chest pain, dyspnea on exertion, edema, orthropnea, palpitations Respiratory: ABSENT: hemoptysis Gastrointestinal: ABSENT: abdominal pain, bloating, coffee ground emesis, constipation, dysphagia, hematemesis, hematochezia, melena Genitourinary: ABSENT: dysuria, hematuria Integumentary: ABSENT: pruritus, rash Neurological: ABSENT: abnormal gait, abnormal movements, abnormal speech, focal weakness, frequent falls, memory loss Psychiatric: ABSENT: hallucinations, homidical ideation, suicidal ideation Endocrine: ABSENT: cold intolerance, heat intolerance, polydipsia, polyuria Hematologic/Lymphatic: ABSENT: easy bruising Allergic/Immunologic: ABSENT: seasonal rhinorrhea Physical Exam Vital Signs: Temp Pulse Resp BP Pulse Ox 99.0 F 57 L 20 104/60 97 08/18/18 07:24 08/18/18 07:24 08/18/18 07:24 08/18/18 07:24 08/18/18 07:24 Intake & Output 08/17/18 08/18/18 08/19/18 06:59 06:59 06:59 Intake Total 50 Output Total 280 Balance -230 Weight 90.1 kg General appearance: PRESENT: obese. ABSENT: disheveled Head exam: PRESENT: atraumatic, normocephalic Eye exam: PRESENT: conjunctiva pale, EOMI. ABSENT: nystagmus, periorbital swelling, scleral icterus Mouth exam: PRESENT: dry mucosa, neck supple Neck exam: ABSENT: carotid bruit, JVD, lymphadenopathy, thyromegaly, tracheal deviation, tracheostomy Respiratory exam: PRESENT: decreased breath sounds, prolonged expiratory phas, rhonchi, unlabored. ABSENT: retraction, stridor Cardiovascular exam: PRESENT: irregular rhythm, +S1, +S2, tachycardia Pulses: PRESENT: normal radial pulses GI/Abdominal exam: PRESENT: soft. ABSENT: tenderness Extremities exam: ABSENT: calf tenderness, clubbing, joint swelling Musculoskeletal exam: ABSENT: deformity, dislocation Neurological exam: PRESENT: awake Psychiatric exam: PRESENT: agitated Skin exam: PRESENT: dry, warm Results Laboratory Results: 08/18/18 06:14 08/18/18 06:14 08/18/18 08/18/18 06:14 06:14 WBC 8.7 RBC 4.29 L Hgb 12.4 L Hct 35.2 L MCV 82 MCH 29.0 MCHC 35.3 RDW 16.5 H Plt Count 332 Seg Neutrophils % 60.5 Lymphocytes % 24.6 Monocytes % 13.6 H Eosinophils % 0.2 Basophils % 1.1 Absolute Neutrophils 5.3 Absolute Lymphocytes 2.1 Absolute Monocytes 1.2 Absolute Eosinophils 0.0 Absolute Basophils 0.1 Sodium 133.8 L Potassium 4.5 Chloride 104 Carbon Dioxide 19 L Anion Gap 11 BUN 13 Creatinine 1.00 Est GFR ( Amer) > 60 Est GFR (Non-Af Amer) > 60 Glucose 85 Calcium 9.3 08/18/18 08/18/18 08/18/18 00:20 06:14 08:21 Troponin I 0.046 0.036 0.029 Impressions: Chest X-Ray 08/17/18 12:59 IMPRESSION: 1. No significant interval changes since the prior study dated 08/13/2018. No acute findings. Head CT 08/17/18 15:17 IMPRESSION: NORMAL BRAIN CT WITHOUT CONTRAST. EVIDENCE OF ACUTE STROKE: NO. Head MRI 08/17/18 17:48 IMPRESSION: Positive for numerous lacunar acute or sub-acute infarctions involving both cerebral hemispheres as well as both cerebellar hemispheres. EVIDENCE OF ACUTE STROKE: YES. Bilateral anterior and posterior circulation Head CTA 08/18/18 00:00 IMPRESSION: NO CTA EVIDENCE OF STENOSIS OR ANEURYSM OF THE [place] OF CHILDRESS. Neck CTA 08/18/18 00:00 IMPRESSION: 1. NORMAL CTA OF THE EXTRA-CRANIAL CAROTID AND VERTEBRAL ARTERIES. 2. LEFT SUPRAHILAR AND AORTA PULMONARY WINDOW MASS WHICH HAS INCREASED IN SIZE SINCE THE PRIOR CHEST CT. Assessment & Plan - Diagnosis (1) Cerebrovascular accident Qualifiers: CVA mechanism: unspecified Qualified Code(s): I63.9 - Cerebral infarction, unspecified Is this a current diagnosis for this admission?: Yes (2) Sleep apnea syndrome Qualifiers: Sleep apnea type: unspecified type Qualified Code(s): G47.30 - Sleep apnea , unspecified Is this a current diagnosis for this admission?: Yes Plan: Nocturnal l polysomnogram (3) Atrial fibrillation with RVR Is this a current diagnosis for this admission?: Yes Plan: Per cardiology (4) GERD (gastroesophageal reflux disease) Is this a current diagnosis for this admission?: Yes Plan: H 2 blockers (5) Hypertension Qualifiers: Hypertension type: essential hypertension Qualified Code(s): I10 - Essential (primary) hypertension Is this a current diagnosis for this admission?: Yes Plan: STable at this time (6) Lung mass Is this a current diagnosis for this admission?: Yes Plan: When cardiac issues are stable patient should be able to get a CT-guided needle biopsy of the lung mass on the left side of his chest - Time Total Critical Time (Minutes): 50
--- NOTE | 2018-08-21 16:10 | RADIOLOGY REPORT (SQ) ---
EXAM DESCRIPTION: U/S SCROTUM W/DOPPLER COMPLETED DATE/TIME: 08/21/2018 3:51 pm REASON FOR STUDY: Lt Groin Pain COMPARISON: None. TECHNIQUE: Static and realtime bee scale imaging of the scrotum and testes. Selected color Doppler and spectral images recorded to document blood flow. LIMITATIONS: None. FINDINGS: RIGHT: TESTICLE: Normal size, 3.4 x 2.4 x 2 cm in size. Normal echotexture. Normal blood flow. No mass. EPIDIDYMIS: Normal. HYDROCELE OR VARICOCELE: No. HERNIA OR EXTRA-TESTICULAR MASS: No. OTHER: No other significant finding. LEFT: TESTICLE: Normal size. Normal echotexture. Normal blood flow. No mass. EPIDIDYMIS: Normal. HYDROCELE OR VARICOCELE: Trace left hydrocele HERNIA OR EXTRA-TESTICULAR MASS: No. OTHER: Benign left inguinal lymph node, 14 x 7 mm in size, without worrisome features IMPRESSION: NORMAL SCROTAL ULTRASOUND. NO EVIDENCE OF TESTICULAR MASS OR TORSION. TECHNICAL DOCUMENTATION: JOB ID: [id number] [employer]- All Rights Reserved Reading location - IP/workstation name: [email or web address]
[2018-08-21] MEDS ORDERED: GLUCAGON,HUMAN RECOMB 1 MG INJ SUBCUT PRN (17:28)
[2018-08-21] MEDS ORDERED: DEXTROSE 40% GEL 15 GM TUBE PO PRN ×2 (17:28)
[2018-08-21] MEDS ORDERED: DEXTROSE 50%-WATER 25 GM/50 ML DISP.SYRIN IV PRN ×2 (17:28)
[2018-08-21] MEDS: ACETAMINOPHEN 325 MG TABLET PO PRN (18:14)
--- NOTE | 2018-08-21 20:33 | Progress Note ---
Provider Note Provider Note: CARDIOLOGY PROGRESS NOTE by Dr. Nisha Corea on 08/21/2018. Subjective: The patient has vague complaints such as chest heaviness shortness of breath and cough productive of sputum which is light yellow in color. He states the chest pressure comes and goes. Note he has mild to moderate luminal irregularities by his cardiac catheterization in April 2018. He remains in sinus rhythm. The patient denies any wheezing. There is no leg edema. There is no PND orthopnea. There is no arrhythmias seen on the monitor. There is no recurrence of atrial fibrillation.. PHYSICAL EXAMINATION: The patient is awake alert in no acute distress. He is well-built and well-nourished. He is well-groomed. 08/21/18 11:56 Temperature 98.0 F Temperature Oral Source Pulse Rate 54 Respiratory 18 Rate Blood Pressure 142/73 H Blood Pressure 100 Mean BP Location Right Arm BP Position Supine O2 Sat by Pulse 97 Oximetry Oxygen Delivery Room Air Method HEAD: Is atraumatic normocephalic. EYES: His pupils are equal regular reactive to light and accommodation. There is no clinical pallor there is no scleral icterus. External ocular movements are normal. ENT is negative. SKIN: There is no petechia or ecchymosis. There is no skin rash or skin lesions. NECK: Neck is supple. There is no JVD. Carotids are equal there is no bruit. There is no lymphadenopathy. There is no goiter trachea is central. There is no accessory muscles of respiration use. LUNGS: Clear to auscultation percussion, without any rhonchi rales or wheezing. There is no chest wall tenderness. HEART: S1-S2 is heard, S1 is of normal intensity. There is no S3 gallop there is no S4 gallop. Systolic murmur left sternal border and apex. There is no rub. ABDOMEN: Soft bowel sounds well heard. There is no hepatosplenomegaly. There is no tender areas of masses. EXTREMITIES: Femorals are well felt there is no femoral bruits. Leg pulses are well felt. There is no pedal edema. There is no DVT or cellulitis. There is no calf tenderness. There is no sinus or clubbing. 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 PSYCHIATRIC: The patient judgment and insight are intact. His affect is normal. EKG: Shows sinus rhythm. Left anterior fascicular block. LVH. Anterior Q waves due to LVH. Note that the EKG from yesterday was read as acute anterior infarct. The patient has no anginal symptoms, and her troponin rise are negative serially x3 hence there is no evidence of any acute PR clinically. IMPRESSION RECOMMENDATION: 1. Paroxysmal atrial fibrillation. At present patient sinus rhythm. Continuous Tambocor. Continue current anticoagulation. As mentioned earlier by Dr. Bentley later would recommend the patient be sent for EP referral for possible atrial fibrillation ablation. 2. Bradycardia: The patient is asymptomatic with a stable blood pressure.. 3. Hypertension: Blood pressure fairly controlled. 4. Chest tightness/chest pain: Seems to be noncardiac especially with the patient having nonobstructive coronary artery disease. There is no evidence of plaque rupture at present. 5. Cerebrovascular accident: Seems to have recovered well. 6. Right lung mass: Patient for needle biopsy of same, definitive diagnosis. His medications have been reviewed. Discussed with the attending physician on the management of this patient. Medical decision making at present is of moderate complexity. 40 minutes spent on this patient with more than 50% time spent in direct patient care. We will follow with you. Note his cardiac catheterization report from April 2018 from [facility] has been reviewed by me.
[2018-08-21] MEDS: ATORVASTATIN CALCIUM 40 MG TABLET PO SCH (22:57)
[2018-08-22] MEDS: OXYCODONE-ACETAMINOPHEN 5-325 MG TABLET PO PRN ×3 (00:29→15:25)
[2018-08-22] MEDS: HEPARIN SODIUM,PORCINE/D5W 25,000 UNIT/250 ML RTUINJ IV PRN (02:44)
[2018-08-22] MEDS: KETOROLAC TROMETHAMINE INJ/PF 30 MG/1 ML SDV IV PRN ×2 (04:51→17:42)
[2018-08-22 05:27] LABS: ABSOLUTE BASOPHILS # (AUTO) 0.1 10^3/uL (0.0-0.2); ABSOLUTE EOSINOPHILS # (AUTO) 0.1 10^3/uL (0.0-0.6); ABSOLUTE LYMPHOCYTES (AUTO) 2.5 10^3/uL (0.5-4.7); ABSOLUTE MONOCYTES (AUTO) 0.9 10^3/uL (0.1-1.4); ABSOLUTE NEUT (AUTO) 7.2 10^3/uL (1.7-8.2); EOSINOPHILS % (AUTO) 1.2 % (0-6); HEMOGLOBIN 11.7 g/dL (13.5-17.0); LYMPHOCYTES % (AUTO) 22.9 % (13-45); MEAN CORPUSCULAR HGB CONC 35.5 g/dL (32.0-36.0); MEAN CORPUSCULAR VOLUME 82 fl (80-97); MONOCYTES % (AUTO) 8.5 % (3-13); PLATELET COUNT 360 10^3/uL (150-450); RED BLOOD COUNT 4.05 10^6/uL (4.35-5.55); RED CELL DISTRIBUTION WIDTH 16.8 % (11.5-14.0); SEGMENTED NEUTROPHILS % (AUTO) 66.4 % (42-78); TOTAL CELLS COUNTED % (AUTO) 100 %; WHITE BLOOD COUNT 10.8 10^3/uL (4.0-10.5)
[2018-08-22 05:53] LABS: ALANINE AMINOTRANSFERASE 45 U/L (21-72); ALBUMIN 3.2 g/dL (3.5-5.0); ALKALINE PHOSPHATASE 141 U/L (38-126); ANION GAP 10 (5-19); ASPARTATE AMINO TRANSFERASE 26 U/L (17-59); BILIRUBIN,DIRECT 0.4 mg/dL (0.0-0.4); BILIRUBIN,TOTAL 0.8 mg/dL (0.2-1.3); BLOOD UREA NITROGEN 8 mg/dL (7-20); CALCIUM 9.4 mg/dL (8.4-10.2); CARBON DIOXIDE 19 mmol/L (22-30); CHLORIDE 108 mmol/L (98-107); GLUCOSE 84 mg/dL (75-110); POTASSIUM 4.4 mmol/L (3.6-5.0); SODIUM 136.9 mmol/L (137-145); TOTAL PROTEIN 6.8 g/dL (6.3-8.2)
--- NOTE | 2018-08-22 09:32 | PDOC PROGRESS REPORT ---
Subjective Progress Note for:: 08/22/18 Subjective:: 58-year-old male past medical history of an NSTEMI 04/2018, A. fib on Eliquis, hypertension, GERD, arthritis and recently found left lung mass who was admitted on 08/18/2018. Patient was found to have a CVA based on MRI of the head. He has history of A. fib and was supposed to take Eliquis however he states that he was not provided with [facility]. CVA was thought to have been caused due to A. fib. Patient was found to have a left lung mass and currently pending biopsy. 08/21/2018. On my encounter today patient is laying in his bed not in any acute distress he states he cannot get a good night sleep due to left eye pain and left groin pain. Patient was scheduled for lung biopsy today however due to some miscommunication between radiology and nursing staff his heparin was not held. Patient is scheduled to have his lung biopsy tomorrow at 1 PM. Patient denies any fever, chills, shortness of breath, nausea, vomiting, abdominal pain, diarrhea, constipation or any urinary symptoms. 08/22/2018. No acute events overnight. On my encounter today patient is resting comfortably in his bed. He stated that he is not feeling very well but does not provide any details. When asked what he means by his not feeling well he states he still having on and off left eye pain and on and off left chest pain. Is explaining his left eye and left chest pain to be stabbing in nature nonradiating. He denies any fever, chills, nausea, shortness of breath, abdominal pain, diarrhea, constipation or any urinary symptoms. Patient is n.p.o. since last midnight for scheduled lung biopsy. Reason For Visit: CHEST PAIN,BRADYCARDIA Physical Exam Vital Signs: Temp Pulse Resp BP Pulse Ox 98.2 F 65 20 165/77 H 98 08/22/18 07:34 08/22/18 07:34 08/22/18 07:34 08/22/18 07:34 08/22/18 09:13 Intake & Output 08/21/18 08/22/18 08/23/18 06:59 06:59 06:59 Intake Total 2982 3769 63 Output Total 1300 Balance 2982 2469 63 Weight 91 kg 91.2 kg General appearance: PRESENT: no acute distress, well-developed, well-nourished Head exam: PRESENT: atraumatic, normocephalic Eye exam: PRESENT: conjunctiva pink, EOMI, PERRLA. ABSENT: scleral icterus Ear exam: PRESENT: normal external ear exam Mouth exam: PRESENT: moist, tongue midline Neck exam: ABSENT: carotid bruit, JVD, lymphadenopathy, thyromegaly Respiratory exam: PRESENT: clear to auscultation dong. ABSENT: rales, rhonchi, wheezes Cardiovascular exam: PRESENT: RRR. ABSENT: diastolic murmur, rubs, systolic murmur Pulses: PRESENT: normal dorsalis pedis pul Vascular exam: PRESENT: normal capillary refill GI/Abdominal exam: PRESENT: normal bowel sounds, soft. ABSENT: distended, guarding, mass, organolmegaly, rebound, tenderness Rectal exam: PRESENT: deferred Extremities exam: PRESENT: full ROM. ABSENT: calf tenderness, clubbing, pedal edema Neurological exam: PRESENT: alert, awake, oriented to person, oriented to place , oriented to time, oriented to situation, CN II-XII grossly intact. ABSENT: motor sensory deficit Psychiatric exam: PRESENT: appropriate affect, normal mood. ABSENT: homicidal ideation, suicidal ideation Skin exam: PRESENT: dry, intact, warm. ABSENT: cyanosis, rash Results Laboratory Results: 08/22/18 04:41 08/22/18 04:41 08/21/18 08/22/18 08/22/18 08:48 04:41 04:41 WBC 10.8 H RBC 4.05 L Hgb 11.7 L Hct 33.0 L MCV 82 MCH 29.0 MCHC 35.5 RDW 16.8 H Plt Count 360 Seg Neutrophils % 66.4 Lymphocytes % 22.9 Monocytes % 8.5 Eosinophils % 1.2 Basophils % 1.0 Absolute Neutrophils 7.2 Absolute Lymphocytes 2.5 Absolute Monocytes 0.9 Absolute Eosinophils 0.1 Absolute Basophils 0.1 Sodium 136.9 L Potassium 4.4 Chloride 108 H Carbon Dioxide 19 L Anion Gap 10 BUN 8 Creatinine 1.00 Est GFR ( Amer) > 60 Est GFR (Non-Af Amer) > 60 Glucose 84 Calcium 9.4 Total Bilirubin 0.8 AST 26 ALT 45 Alkaline Phosphatase 141 H Total Protein 6.8 Albumin 3.2 L Stool Occult Blood NEGATIVE 08/19/18 08/19/18 08/19/18 02:17 02:17 06:56 Creatine Kinase 44 L 39 L CK-MB (CK-2) 0.66 Troponin I 0.031 08/19/18 08/19/18 08/19/18 06:56 15:40 15:40 Creatine Kinase 43 L CK-MB (CK-2) 0.72 0.87 Troponin I 0.027 0.021 Impressions: Head CT 08/17/18 15:17 IMPRESSION: NORMAL BRAIN CT WITHOUT CONTRAST. EVIDENCE OF ACUTE STROKE: NO. Head MRI 08/17/18 17:48 IMPRESSION: Positive for numerous lacunar acute or sub-acute infarctions involving both cerebral hemispheres as well as both cerebellar hemispheres. EVIDENCE OF ACUTE STROKE: YES. Bilateral anterior and posterior circulation Carotid Doppler Study 08/18/18 00:00 IMPRESSION: NO HEMODYNAMICALLY SIGNIFICANT STENOSIS. Head CTA 08/18/18 00:00 IMPRESSION: NO CTA EVIDENCE OF STENOSIS OR ANEURYSM OF THE [place]. Neck CTA 08/18/18 00:00 IMPRESSION: 1. NORMAL CTA OF THE EXTRA-CRANIAL CAROTID AND VERTEBRAL ARTERIES. 2. LEFT SUPRAHILAR AND AORTA PULMONARY WINDOW MASS WHICH HAS INCREASED IN SIZE SINCE THE PRIOR CHEST CT. Thyroid Ultrasound 08/18/18 00:00 IMPRESSION: VERY LIMITED STUDY. 1 CM COLLOID CYST LEFT LOWER POLE THYROID. Lung Scan-VQ NM 08/18/18 08:50 IMPRESSION: Perfusion images show lack of radiotracer activity in the left upper lobe apical segments consistent with ventilation-perfusion mismatch. Chest X-Ray 08/20/18 06:00 IMPRESSION: Left upper lobe mass and left hilar enlargement unchanged from CT angio chest 08/02/2018 Scrotum Ultrasound 08/21/18 00:00 IMPRESSION: NORMAL SCROTAL ULTRASOUND. NO EVIDENCE OF TESTICULAR MASS OR TORSION. Assessment & Plan - Diagnosis (1) Cerebrovascular accident Qualifiers: CVA mechanism: unspecified Qualified Code(s): I63.9 - Cerebral infarction, unspecified Is this a current diagnosis for this admission?: Yes Plan: MRI head on 08/17/2018 was positive for numerous lacunar acute or subacute infarctions involving both cerebral and cerebellar hemispheres. Carotid Doppler was negative, head CT was also negative. Patient was not compliant with his Eliquis for the underlying A. fib which may have caused this CVA. Not a TPA candidate due to being on anticoagulation for underlying A. fib. Continue aspirin, high intensity statin. Eliquis on hold due to pending lung biopsy. Continue heparin drip. Continue PT OT ST. (2) Chest pain Qualifiers: Chest pain type: unspecified Qualified Code(s): R07.9 - Chest pain, unspecified Is this a current diagnosis for this admission?: Yes Plan: Improving. Troponins trending down. Possibly atypical or noncardiac. Workup for [place] negative on this admission. History of NSTEMI April 2018. Cath in April 2018 showed 10-20% stenosis in LMA. Echo on this admission showed normal ejection fraction and left ventricular hypertrophy. Chest pain was deemed to be possibly due to coronary vasospasm. Chest pain seems more musculoskeletal than cardiac. Will start on lidocaine patch and see if patient responds. He is receiving amlodipine and Protonix already. Cardiology following. (3) Atrial fibrillation with RVR Is this a current diagnosis for this admission?: Yes Plan: [id number] Score 3. Rate controlled. Eliquis is on hold for pending lung biopsy. Continue heparin drip. Started on flecainide by cardiology. As per cardiology note patient may need some outpatient follow-up for definitive treatment of his A. fib such as ablation due to noncompliance to his anticoagulation. Cardiology following. (4) Lung mass Is this a current diagnosis for this admission?: Yes Plan: Left upper lobe. Pending lung biopsy. Patient is a current smoker. Advised on quitting smoking. (5) Tobacco abuse Is this a current diagnosis for this admission?: Yes Plan: Counseled on quitting. Continue nicotine patch. (6) Bradycardia Is this a current diagnosis for this admission?: Yes Plan: Stable. Rate running between 50s and 60s. Asymptomatic. May be due to underlying sleep apnea or a sick sinus syndrome as per cardiology note. No intervention at this point as per cardiology recommendation. Outpatient cardiology follow-up. (7) Eye pain Qualifiers: Laterality: left Qualified Code(s): H57.12 - Ocular pain, left eye Is this a current diagnosis for this admission?: No Plan: Patient still having on and off left-sided orbit pain. Patient was worked up for GCA and previous admission. Ophthalmology was consulted and patient was deemed to be low risk for GCA. MRI head does not show any abnormalities in the orbits. Continue supportive measures. Patient denies any visual changes. Patient could possibly have some type of trigeminal neuralgia. Patient may benefit from an outpatient neurology consult. No inpatient neurology consult available. (8) GERD (gastroesophageal reflux disease) Is this a current diagnosis for this admission?: Yes Plan: Continue Protonix. Patient denies any melena hematochezia or any recent weight loss. H&H is stable. Guaiac negative. Outpatient GI follow-up. (9) Hypertension Qualifiers: Hypertension type: essential hypertension Qualified Code(s): I10 - Essential (primary) hypertension Is this a current diagnosis for this admission?: Yes Plan: Euvolemic, increase lisinopril to 40 mg daily. Continue amlodipine 5 mg. Adjust medications as needed. (10) Left groin pain Is this a current diagnosis for this admission?: Yes Plan: Improving. Ultrasound on 2017 kiana for any acute abnormalities except for benign left inguinal lymph node measuring 14 x 7 mm in size without worrisome features.
[2018-08-22] MEDS ORDERED: LIDOCAINE 5% (700 MG) TRANSDERMAL ADH..PATCH TP ONE (10:00)
[2018-08-22] MEDS ORDERED: LIDOCAINE 5% (700 MG) TRANSDERMAL ADH..PATCH TP PRN (10:02)
[2018-08-22] MEDS ORDERED: MIDAZOLAM 2 MG/2 ML INJ ONE (10:53)
[2018-08-22] MEDS ORDERED: LIDOCAINE 1% INJ-PF (10 MG/ML) 30 ML SDV ONE (10:54)
[2018-08-22] MEDS ORDERED: FENTANYL CITRATE INJ/PF 100 MCG/2 ML AMPUL ONE (10:54)
--- NOTE | 2018-08-22 11:19 | PDOC PROGRESS REPORT ---
Subjective Progress Note for:: 08/22/18 Subjective:: Complains of fatigue Reason For Visit: CHEST PAIN,BRADYCARDIA Physical Exam Vital Signs: Temp Pulse Resp BP Pulse Ox 98.2 F 65 20 165/77 H 98 08/22/18 07:34 08/22/18 07:34 08/22/18 07:34 08/22/18 07:34 08/22/18 09:13 Intake & Output 08/21/18 08/22/18 08/23/18 06:59 06:59 06:59 Intake Total 2982 3769 63 Output Total 1300 Balance 2982 2469 63 Weight 91 kg 91.2 kg General appearance: PRESENT: no acute distress, cooperative, disheveled, obese Head exam: PRESENT: atraumatic, normocephalic Eye exam: PRESENT: conjunctiva pale, EOMI. ABSENT: nystagmus, periorbital swelling, scleral icterus Mouth exam: PRESENT: dry mucosa, neck supple, tongue midline Neck exam: ABSENT: carotid bruit, JVD, lymphadenopathy, thyromegaly, tracheal deviation, tracheostomy Respiratory exam: PRESENT: decreased breath sounds, prolonged expiratory phas, rhonchi, symmetrical, unlabored. ABSENT: rales, retraction, stridor, tachypnea Cardiovascular exam: PRESENT: RRR, +S1, +S2, tachycardia Pulses: PRESENT: normal radial pulses GI/Abdominal exam: PRESENT: soft Extremities exam: ABSENT: calf tenderness, clubbing, pedal edema Neurological exam: PRESENT: alert, awake Psychiatric exam: PRESENT: flat affect Skin exam: PRESENT: dry, warm Results Laboratory Results: 08/22/18 04:41 08/22/18 04:41 08/22/18 08/22/18 04:41 04:41 WBC 10.8 H RBC 4.05 L Hgb 11.7 L Hct 33.0 L MCV 82 MCH 29.0 MCHC 35.5 RDW 16.8 H Plt Count 360 Seg Neutrophils % 66.4 Lymphocytes % 22.9 Monocytes % 8.5 Eosinophils % 1.2 Basophils % 1.0 Absolute Neutrophils 7.2 Absolute Lymphocytes 2.5 Absolute Monocytes 0.9 Absolute Eosinophils 0.1 Absolute Basophils 0.1 Sodium 136.9 L Potassium 4.4 Chloride 108 H Carbon Dioxide 19 L Anion Gap 10 BUN 8 Creatinine 1.00 Est GFR ( Amer) > 60 Est GFR (Non-Af Amer) > 60 Glucose 84 Calcium 9.4 Total Bilirubin 0.8 AST 26 ALT 45 Alkaline Phosphatase 141 H Total Protein 6.8 Albumin 3.2 L 08/19/18 08/19/18 08/19/18 02:17 02:17 06:56 Creatine Kinase 44 L 39 L CK-MB (CK-2) 0.66 Troponin I 0.031 08/19/18 08/19/18 08/19/18 06:56 15:40 15:40 Creatine Kinase 43 L CK-MB (CK-2) 0.72 0.87 Troponin I 0.027 0.021 Impressions: Head CT 08/17/18 15:17 IMPRESSION: NORMAL BRAIN CT WITHOUT CONTRAST. EVIDENCE OF ACUTE STROKE: NO. Head MRI 08/17/18 17:48 IMPRESSION: Positive for numerous lacunar acute or sub-acute infarctions involving both cerebral hemispheres as well as both cerebellar hemispheres. EVIDENCE OF ACUTE STROKE: YES. Bilateral anterior and posterior circulation Carotid Doppler Study 08/18/18 00:00 IMPRESSION: NO HEMODYNAMICALLY SIGNIFICANT STENOSIS. Head CTA 08/18/18 00:00 IMPRESSION: NO CTA EVIDENCE OF STENOSIS OR ANEURYSM OF THE [place]DR[place]. Neck CTA 08/18/18 00:00 IMPRESSION: 1. NORMAL CTA OF THE EXTRA-CRANIAL CAROTID AND VERTEBRAL ARTERIES. 2. LEFT SUPRAHILAR AND AORTA PULMONARY WINDOW MASS WHICH HAS INCREASED IN SIZE SINCE THE PRIOR CHEST CT. Thyroid Ultrasound 08/18/18 00:00 IMPRESSION: VERY LIMITED STUDY. 1 CM COLLOID CYST LEFT LOWER POLE THYROID. Lung Scan-VQ NM 08/18/18 08:50 IMPRESSION: Perfusion images show lack of radiotracer activity in the left upper lobe apical segments consistent with ventilation-perfusion mismatch. Chest X-Ray 08/20/18 06:00 IMPRESSION: Left upper lobe mass and left hilar enlargement unchanged from CT angio chest 08/02/2018 Scrotum Ultrasound 08/21/18 00:00 IMPRESSION: NORMAL SCROTAL ULTRASOUND. NO EVIDENCE OF TESTICULAR MASS OR TORSION. Assessment & Plan - Diagnosis (1) Cerebrovascular accident Qualifiers: CVA mechanism: unspecified Qualified Code(s): I63.9 - Cerebral infarction, unspecified Is this a current diagnosis for this admission?: Yes (2) Sleep apnea syndrome Qualifiers: Sleep apnea type: unspecified type Qualified Code(s): G47.30 - Sleep apnea , unspecified Is this a current diagnosis for this admission?: Yes Plan: Nocturnal l polysomnogram (3) Atrial fibrillation with RVR Is this a current diagnosis for this admission?: Yes Plan: Normal sinus rhythm (4) GERD (gastroesophageal reflux disease) Is this a current diagnosis for this admission?: Yes Plan: H 2 blockers (5) Hypertension Qualifiers: Hypertension type: essential hypertension Qualified Code(s): I10 - Essential (primary) hypertension Is this a current diagnosis for this admission?: Yes Plan: STable at this time (6) Lung mass Is this a current diagnosis for this admission?: Yes Plan: a CT-guided needle biopsy of the lung mass on the left side of his chest
--- NOTE | 2018-08-22 11:21 | PDOC PROGRESS REPORT ---
Subjective Progress Note for:: 08/21/18 Subjective:: Complains of fatigue Reason For Visit: CHEST PAIN,BRADYCARDIA Physical Exam Vital Signs: Temp Pulse Resp BP Pulse Ox 98.0 F 54 L 18 142/72 H 97 08/21/18 11:52 08/21/18 11:52 08/21/18 11:52 08/21/18 11:52 08/21/18 11:52 Intake & Output 08/20/18 08/21/18 08/22/18 06:59 06:59 06:59 Intake Total 1980 2982 1696 Balance 1980 2982 1696 Weight 90 kg 91 kg General appearance: PRESENT: no acute distress, cooperative, disheveled, obese Head exam: PRESENT: atraumatic, normocephalic Eye exam: PRESENT: conjunctiva pale, EOMI. ABSENT: nystagmus, periorbital swelling, scleral icterus Mouth exam: PRESENT: dry mucosa, neck supple, tongue midline Neck exam: ABSENT: carotid bruit, JVD, lymphadenopathy, thyromegaly, tracheal deviation, tracheostomy Respiratory exam: PRESENT: decreased breath sounds, prolonged expiratory phas, rhonchi, symmetrical, unlabored. ABSENT: retraction, stridor, tachypnea Cardiovascular exam: PRESENT: RRR, +S1, +S2 Pulses: PRESENT: normal radial pulses GI/Abdominal exam: PRESENT: soft. ABSENT: tenderness Extremities exam: ABSENT: calf tenderness, clubbing, joint swelling Musculoskeletal exam: ABSENT: deformity, dislocation Neurological exam: PRESENT: alert, awake Psychiatric exam: PRESENT: flat affect Skin exam: PRESENT: dry, warm Results Laboratory Results: 08/20/18 05:24 08/20/18 05:24 08/21/18 08:48 Stool Occult Blood NEGATIVE 08/19/18 08/19/18 08/19/18 02:17 02:17 06:56 Creatine Kinase 44 L 39 L CK-MB (CK-2) 0.66 Troponin I 0.031 08/19/18 08/19/18 08/19/18 06:56 15:40 15:40 Creatine Kinase 43 L CK-MB (CK-2) 0.72 0.87 Troponin I 0.027 0.021 Impressions: Head CT 08/17/18 15:17 IMPRESSION: NORMAL BRAIN CT WITHOUT CONTRAST. EVIDENCE OF ACUTE STROKE: NO. Head MRI 10/12/18 17:48 IMPRESSION: Positive for numerous lacunar acute or sub-acute infarctions involving both cerebral hemispheres as well as both cerebellar hemispheres. EVIDENCE OF ACUTE STROKE: YES. Bilateral anterior and posterior circulation Carotid Doppler Study 08/18/18 00:00 IMPRESSION: NO HEMODYNAMICALLY SIGNIFICANT STENOSIS. Head CTA 08/18/18 00:00 IMPRESSION: NO CTA EVIDENCE OF STENOSIS OR ANEURYSM OF THE [place]. Neck CTA 08/18/18 00:00 IMPRESSION: 1. NORMAL CTA OF THE EXTRA-CRANIAL CAROTID AND VERTEBRAL ARTERIES. 2. LEFT SUPRAHILAR AND AORTA PULMONARY WINDOW MASS WHICH HAS INCREASED IN SIZE SINCE THE PRIOR CHEST CT. Thyroid Ultrasound 08/18/18 00:00 IMPRESSION: VERY LIMITED STUDY. 1 CM COLLOID CYST LEFT LOWER POLE THYROID. Lung Scan-VQ NM 08/18/18 08:50 IMPRESSION: Perfusion images show lack of radiotracer activity in the left upper lobe apical segments consistent with ventilation-perfusion mismatch. Chest X-Ray 08/20/18 06:00 IMPRESSION: Left upper lobe mass and left hilar enlargement unchanged from CT angio chest 08/02/2018 Assessment & Plan - Diagnosis (1) Cerebrovascular accident Qualifiers: CVA mechanism: unspecified Qualified Code(s): I63.9 - Cerebral infarction, unspecified Is this a current diagnosis for this admission?: Yes (2) Sleep apnea syndrome Qualifiers: Sleep apnea type: unspecified type Qualified Code(s): G47.30 - Sleep apnea , unspecified Is this a current diagnosis for this admission?: Yes Plan: Nocturnal l polysomnogram (3) Atrial fibrillation with RVR Is this a current diagnosis for this admission?: Yes Plan: Normal sinus rhythm (4) Hypertension Qualifiers: Hypertension type: essential hypertension Qualified Code(s): I10 - Essential (primary) hypertension Is this a current diagnosis for this admission?: Yes Plan: STable at this time (5) Lung mass Is this a current diagnosis for this admission?: Yes Plan: a CT-guided needle biopsy of the lung mass on the left side of his chest
--- NOTE | 2018-08-22 11:22 | PDOC PROGRESS REPORT ---
Subjective Progress Note for:: 08/20/18 Subjective:: Complains of fatigue Reason For Visit: CHEST PAIN,BRADYCARDIA Physical Exam Vital Signs: Temp Pulse Resp BP Pulse Ox 99.5 F 62 18 121/70 100 08/20/18 12:14 08/20/18 12:14 08/20/18 12:14 08/20/18 12:14 08/20/18 12:14 Intake & Output 08/19/18 08/20/18 08/21/18 06:59 06:59 06:59 Intake Total 1980 320 Output Total 900 Balance -900 1980 320 Weight 90 kg General appearance: PRESENT: no acute distress, cooperative, disheveled, obese Head exam: PRESENT: atraumatic, normocephalic Eye exam: PRESENT: conjunctiva pale, EOMI. ABSENT: nystagmus, periorbital swelling, scleral icterus Mouth exam: PRESENT: dry mucosa, neck supple, tongue midline Neck exam: ABSENT: carotid bruit, JVD, lymphadenopathy, thyromegaly, tracheal deviation, tracheostomy Respiratory exam: PRESENT: decreased breath sounds, prolonged expiratory phas, rales, rhonchi, unlabored. ABSENT: retraction, stridor Cardiovascular exam: PRESENT: RRR, +S1, +S2 Pulses: PRESENT: normal radial pulses GI/Abdominal exam: PRESENT: soft. ABSENT: tenderness Extremities exam: ABSENT: calf tenderness, clubbing, joint swelling, pedal edema , +1 edema, +2 edema Musculoskeletal exam: ABSENT: deformity, dislocation Neurological exam: PRESENT: alert, awake Psychiatric exam: PRESENT: depressed, flat affect Skin exam: PRESENT: dry, warm Results Laboratory Results: 08/20/18 05:24 08/20/18 05:24 08/20/18 08/20/18 08/20/18 05:24 05:24 06:05 WBC 7.5 RBC 3.87 L Hgb 11.3 L Hct 32.1 L MCV 83 MCH 29.2 MCHC 35.1 RDW 16.2 H Plt Count 299 Seg Neutrophils % 59.6 Lymphocytes % 26.1 Monocytes % 10.7 Eosinophils % 1.9 Basophils % 1.7 Absolute Neutrophils 4.5 Absolute Lymphocytes 2.0 Absolute Monocytes 0.8 Absolute Eosinophils 0.1 Absolute Basophils 0.1 Carbonic Acid 0.87 L HCO3/H2CO3 Ratio 22:1 ABG pH 7.44 ABG pCO2 28.9 L ABG pO2 90.7 ABG HCO3 19.3 L ABG O2 Saturation 97.3 ABG Base Excess -3.8 FiO2 ROOM AIR Sodium 136.9 L Potassium 4.5 Chloride 110 H Carbon Dioxide 20 L Anion Gap 7 BUN 16 Creatinine 1.16 Est GFR ( Amer) > 60 Est GFR (Non-Af Amer) > 60 Glucose 91 Calcium 8.4 Magnesium 2.2 08/19/18 08/19/18 08/19/18 02:17 02:17 06:56 Creatine Kinase 44 L 39 L CK-MB (CK-2) 0.66 Troponin I 0.031 08/19/18 08/19/18 08/19/18 06:56 15:40 15:40 Creatine Kinase 43 L CK-MB (CK-2) 0.72 0.87 Troponin I 0.027 0.021 Impressions: Head CT 08/17/18 15:17 IMPRESSION: NORMAL BRAIN CT WITHOUT CONTRAST. EVIDENCE OF ACUTE STROKE: NO. Head MRI 08/17/18 17:48 IMPRESSION: Positive for numerous lacunar acute or sub-acute infarctions involving both cerebral hemispheres as well as both cerebellar hemispheres. EVIDENCE OF ACUTE STROKE: YES. Bilateral anterior and posterior circulation Carotid Doppler Study 08/18/18 00:00 IMPRESSION: NO HEMODYNAMICALLY SIGNIFICANT STENOSIS. Head CTA 08/18/18 00:00 IMPRESSION: NO CTA EVIDENCE OF STENOSIS OR ANEURYSM OF THE [place]DR[place]. Neck CTA 08/18/18 00:00 IMPRESSION: 1. NORMAL CTA OF THE EXTRA-CRANIAL CAROTID AND VERTEBRAL ARTERIES. 2. LEFT SUPRAHILAR AND AORTA PULMONARY WINDOW MASS WHICH HAS INCREASED IN SIZE SINCE THE PRIOR CHEST CT. Thyroid Ultrasound 08/18/18 00:00 IMPRESSION: VERY LIMITED STUDY. 1 CM COLLOID CYST LEFT LOWER POLE THYROID. Lung Scan-VQ NM 08/18/18 08:50 IMPRESSION: Perfusion images show lack of radiotracer activity in the left upper lobe apical segments consistent with ventilation-perfusion mismatch. Chest X-Ray 08/20/18 06:00 IMPRESSION: Left upper lobe mass and left hilar enlargement unchanged from CT angio chest 08/02/2018 Assessment & Plan - Diagnosis (1) Cerebrovascular accident Qualifiers: CVA mechanism: unspecified Qualified Code(s): I63.9 - Cerebral infarction, unspecified Is this a current diagnosis for this admission?: Yes (2) Sleep apnea syndrome Qualifiers: Sleep apnea type: unspecified type Qualified Code(s): G47.30 - Sleep apnea , unspecified Is this a current diagnosis for this admission?: Yes Plan: Nocturnal l polysomnogram (3) Atrial fibrillation with RVR Is this a current diagnosis for this admission?: Yes Plan: Normal sinus rhythm (4) Hypertension Qualifiers: Hypertension type: essential hypertension Qualified Code(s): I10 - Essential (primary) hypertension Is this a current diagnosis for this admission?: Yes Plan: STable at this time (5) Lung mass Is this a current diagnosis for this admission?: Yes Plan: a CT-guided needle biopsy of the lung mass on the left side of his chest
--- NOTE | 2018-08-22 11:24 | PDOC PROGRESS REPORT ---
Subjective Progress Note for:: 08/19/18 Subjective:: Complains of fatigue Reason For Visit: CHEST PAIN,BRADYCARDIA Physical Exam Vital Signs: Temp Pulse Resp BP Pulse Ox 98.4 F 50 L 15 117/61 97 08/19/18 10:00 08/19/18 10:00 08/19/18 10:00 08/19/18 10:00 08/19/18 10:00 Intake & Output 08/18/18 08/19/18 08/20/18 06:59 06:59 06:59 Intake Total 550 Output Total 900 Balance -900 550 General appearance: PRESENT: no acute distress, cooperative, disheveled, obese Head exam: PRESENT: atraumatic, normocephalic Eye exam: PRESENT: conjunctiva pale, EOMI. ABSENT: nystagmus, periorbital swelling, scleral icterus Mouth exam: PRESENT: dry mucosa, neck supple, tongue midline Neck exam: ABSENT: carotid bruit, JVD, lymphadenopathy, thyromegaly, tracheal deviation, tracheostomy Respiratory exam: PRESENT: decreased breath sounds, prolonged expiratory phas, rhonchi, symmetrical, unlabored. ABSENT: rales, retraction, stridor Cardiovascular exam: PRESENT: RRR, +S1, +S2 Pulses: PRESENT: normal radial pulses GI/Abdominal exam: PRESENT: soft. ABSENT: tenderness Extremities exam: ABSENT: calf tenderness, clubbing, joint swelling, +1 edema, + 2 edema Musculoskeletal exam: ABSENT: deformity, dislocation Neurological exam: PRESENT: alert, awake Psychiatric exam: PRESENT: depressed, flat affect Skin exam: PRESENT: dry, warm Results Laboratory Results: 08/19/18 06:56 08/19/18 06:56 08/18/18 08/19/18 08/19/18 23:42 05:00 06:56 WBC 7.5 RBC 4.29 L Hgb 12.5 L Hct 35.2 L MCV 82 MCH 29.0 MCHC 35.3 RDW 16.4 H Plt Count 355 Seg Neutrophils % 58.9 Lymphocytes % 27.4 Monocytes % 11.4 Eosinophils % 0.9 Basophils % 1.4 Absolute Neutrophils 4.4 Absolute Lymphocytes 2.0 Absolute Monocytes 0.9 Absolute Eosinophils 0.1 Absolute Basophils 0.1 Carbonic Acid 0.96 L HCO3/H2CO3 Ratio 22:1 ABG pH 7.45 ABG pCO2 31.9 L ABG pO2 81.0 ABG HCO3 21.8 ABG O2 Saturation 96.5 ABG Base Excess -1.4 FiO2 ROOM AIR Sodium Potassium Chloride Carbon Dioxide Anion Gap BUN Creatinine Est GFR ( Amer) Est GFR (Non-Af Amer) Glucose Calcium Phosphorus Magnesium Total Bilirubin AST ALT Alkaline Phosphatase Total Protein Albumin Urine Color YELLOW Urine Appearance CLEAR Urine pH 5.0 Ur Specific Rowe 1.015 Urine Protein NEGATIVE Urine Glucose (UA) NEGATIVE Urine Ketones NEGATIVE Urine Blood NEGATIVE Urine Nitrite NEGATIVE Ur Leukocyte Esterase NEGATIVE Urine WBC (Auto) 1 Urine RBC (Auto) 1 08/19/18 06:56 WBC RBC Hgb Hct MCV MCH MCHC RDW Plt Count Seg Neutrophils % Lymphocytes % Monocytes % Eosinophils % Basophils % Absolute Neutrophils Absolute Lymphocytes Absolute Monocytes Absolute Eosinophils Absolute Basophils Carbonic Acid HCO3/H2CO3 Ratio ABG pH ABG pCO2 ABG pO2 ABG HCO3 ABG O2 Saturation ABG Base Excess FiO2 Sodium 134.9 L Potassium 3.9 Chloride 103 Carbon Dioxide 21 L Anion Gap 11 BUN 16 Creatinine 1.28 H Est GFR ( Amer) > 60 Est GFR (Non-Af Amer) 57 L Glucose 82 Calcium 8.9 Phosphorus 4.1 Magnesium 2.3 Total Bilirubin 0.9 AST 28 ALT 55 Alkaline Phosphatase 119 Total Protein 6.4 Albumin 2.9 L Urine Color Urine Appearance Urine pH Ur Specific Rowe Urine Protein Urine Glucose (UA) Urine Ketones Urine Blood Urine Nitrite Ur Leukocyte Esterase Urine WBC (Auto) Urine RBC (Auto) 08/19/18 08/19/18 08/19/18 02:17 02:17 06:56 Creatine Kinase 44 L 39 L CK-MB (CK-2) 0.66 Troponin I 0.031 08/19/18 06:56 Creatine Kinase CK-MB (CK-2) 0.72 Troponin I 0.027 Impressions: Head CT 08/17/18 15:17 IMPRESSION: NORMAL BRAIN CT WITHOUT CONTRAST. EVIDENCE OF ACUTE STROKE: NO. Head MRI 08/17/18 17:48 IMPRESSION: Positive for numerous lacunar acute or sub-acute infarctions involving both cerebral hemispheres as well as both cerebellar hemispheres. EVIDENCE OF ACUTE STROKE: YES. Bilateral anterior and posterior circulation Carotid Doppler Study 08/18/18 00:00 IMPRESSION: NO HEMODYNAMICALLY SIGNIFICANT STENOSIS. Head CTA 08/18/18 00:00 IMPRESSION: NO CTA EVIDENCE OF STENOSIS OR ANEURYSM OF THE [place]DR[place]. Neck CTA 08/18/18 00:00 IMPRESSION: 1. NORMAL CTA OF THE EXTRA-CRANIAL CAROTID AND VERTEBRAL ARTERIES. 2. LEFT SUPRAHILAR AND AORTA PULMONARY WINDOW MASS WHICH HAS INCREASED IN SIZE SINCE THE PRIOR CHEST CT. Thyroid Ultrasound 08/18/18 00:00 IMPRESSION: VERY LIMITED STUDY. 1 CM COLLOID CYST LEFT LOWER POLE THYROID. Lung Scan-VQ NM 08/18/18 08:50 IMPRESSION: Perfusion images show lack of radiotracer activity in the left upper lobe apical segments consistent with ventilation-perfusion mismatch. Chest X-Ray 08/19/18 06:00 IMPRESSION: No significant change. Assessment & Plan - Diagnosis (1) Cerebrovascular accident Qualifiers: CVA mechanism: unspecified Qualified Code(s): I63.9 - Cerebral infarction, unspecified Is this a current diagnosis for this admission?: Yes (2) Sleep apnea syndrome Qualifiers: Sleep apnea type: unspecified type Qualified Code(s): G47.30 - Sleep apnea , unspecified Is this a current diagnosis for this admission?: Yes Plan: Nocturnal l polysomnogram (3) Atrial fibrillation with RVR Is this a current diagnosis for this admission?: Yes Plan: Normal sinus rhythm (4) Hypertension Qualifiers: Hypertension type: essential hypertension Qualified Code(s): I10 - Essential (primary) hypertension Is this a current diagnosis for this admission?: Yes Plan: STable at this time (5) Lung mass Is this a current diagnosis for this admission?: Yes Plan: a CT-guided needle biopsy of the lung mass on the left side of his chest
[2018-08-22] MEDS: NORMAL SALINE 1000 ML 1,000 ML IV PRN ×2 (12:00→22:11)
--- NOTE | 2018-08-22 12:38 | RADIOLOGY REPORT (SQ) ---
EXAM DESCRIPTION: CHEST SINGLE VIEW COMPLETED DATE/TIME: 08/22/2018 12:28 pm REASON FOR STUDY: POST LUNG BIOPSY COMPARISON: 04/20/2018 EXAM PARAMETERS: NUMBER OF VIEWS: One view. TECHNIQUE: Single frontal radiographic view of the chest acquired. RADIATION DOSE: NA LIMITATIONS: None. FINDINGS: LUNGS AND PLEURA: No pneumothorax very status post biopsy left upper lung nodule. MEDIASTINUM AND HILAR STRUCTURES: No masses. Contour normal. HEART AND VASCULAR STRUCTURES: Heart normal in size. Normal vasculature. BONES: No acute findings. HARDWARE: None in the chest. OTHER: No other significant finding. IMPRESSION: No pneumothorax. TECHNICAL DOCUMENTATION: JOB ID: [id number] [employer]- All Rights Reserved Reading location - IP/workstation name: [email or web address]
--- NOTE | 2018-08-22 12:46 | RADIOLOGY REPORT (SQ) ---
EXAM DESCRIPTION: CT BIOPSY LUNG/MEDIASTINUM; CT NEEDLE PLACEMENT COMPLETED DATE/TIME: 08/22/2018 11:53 am; 08/22/2018 11:47 am REASON FOR STUDY: lung mass; LUNG BIOPSY COMPARISON: None. TECHNIQUE: CT guided biopsy of the left upper lung nodule performed with conscious sedation. CT Fluoroscopy Time: [address] scanners at this facility use dose modulation, iterative reconstruction, and/or weight based d osing when appropriate to reduce radiation dose to as low as reasonably achievable (ALARA). [facility]: Dose Right [facility]: CareDose [facility]: Dose Right [facility]: Teradose 4D [facility]: Smart [employer] RADIATION DOSE: CT Rad equipment meets quality standard of care and radiation dose reduction techni ques were employed. CTDIvol: 4.0 - 16.3 mGy. DLP: 410 mGy-cm.mGy. FINDINGS: After obtaining informed consent and explaining the risks and benefits of conscious sedati on,the patient agreed to the procedure. Prior to the procedure, a time out was performed to verify th e patient's identity and planned procedure. IV sedation was administered and physician direction by the registered nurse using 1 milligrams of Ve rsed and 100 micrograms of fentanyl, for conscious sedation. Physiologic monitoring was provided befo re, during, and after sedation. The total sedation time was 30 minutes. Documentation face to face time, the performing proceduralist, spent monitoring the patient: [address] scanning was performed to localize the percutaneous site for the biopsy approach. After sterile skin prep and local lidocaine for skin and deep tissue anesthesia, a coaxial biopsy nee dle was used to obtain multiple cores of tissue. The biopsy tissue was submitted to the lab in forma reinaldo. There were no immediate complications. Pathology is pending at the time of dictation. IMPRESSION: CT GUIDED BIOPSY OF THE LEFT UPPER LUNG NODULE PERFORMED WITHOUT IMMEDIATE COMPLICATION. PATHOLOGY PENDING. COMMENT: Quality ID 145: Final reports for procedures using fluoroscopy that document radiation exp osure indices, or exposure time and number of fluorographic images (if radiation exposure indices are not available) Patient medication list reviewed: Yes- Quality ID# [id number]:Eligible professional attests to documenting i n the medical record they obtained, updated, or reviewed the patient's current medications.. TECHNICAL DOCUMENTATION: JOB ID: [id number] Quality ID# [id number]: Final reports with documentation of one or more dose reduction techniques (e.g., Aut omated exposure control, adjustment of the mA and/or kV according to patient size, use of iterative r econstruction technique) 2010 [employer]- All Rights Reserved Reading location - IP/workstation name: [email or web address]
--- NOTE | 2018-08-22 12:46 | RADIOLOGY REPORT (SQ) ---
EXAM DESCRIPTION: CT BIOPSY LUNG/MEDIASTINUM; CT NEEDLE PLACEMENT COMPLETED DATE/TIME: 08/22/2018 11:53 am; 08/22/2018 11:47 am REASON FOR STUDY: lung mass; LUNG BIOPSY COMPARISON: None. TECHNIQUE: CT guided biopsy of the left upper lung nodule performed with conscious sedation. CT Fluoroscopy Time: [address] scanners at this facility use dose modulation, iterative reconstruction, and/or weight based d osing when appropriate to reduce radiation dose to as low as reasonably achievable (ALARA). [facility]: Dose Right [facility]: CareDose [facility]: Dose Right [facility]: Teradose 4D [facility]: Smart [employer] RADIATION DOSE: CT Rad equipment meets quality standard of care and radiation dose reduction techni ques were employed. CTDIvol: 4.0 - 16.3 mGy. DLP: 410 mGy-cm.mGy. FINDINGS: After obtaining informed consent and explaining the risks and benefits of conscious sedati on,the patient agreed to the procedure. Prior to the procedure, a time out was performed to verify th e patient's identity and planned procedure. IV sedation was administered and physician direction by the registered nurse using 1 milligrams of Ve rsed and 100 micrograms of fentanyl, for conscious sedation. Physiologic monitoring was provided befo re, during, and after sedation. The total sedation time was 30 minutes. Documentation face to face time, the performing proceduralist, spent monitoring the patient: [address] scanning was performed to localize the percutaneous site for the biopsy approach. After sterile skin prep and local lidocaine for skin and deep tissue anesthesia, a coaxial biopsy nee dle was used to obtain multiple cores of tissue. The biopsy tissue was submitted to the lab in forma reinaldo. There were no immediate complications. Pathology is pending at the time of dictation. IMPRESSION: CT GUIDED BIOPSY OF THE LEFT UPPER LUNG NODULE PERFORMED WITHOUT IMMEDIATE COMPLICATION. PATHOLOGY PENDING. COMMENT: Quality ID 145: Final reports for procedures using fluoroscopy that document radiation exp osure indices, or exposure time and number of fluorographic images (if radiation exposure indices are not available) Patient medication list reviewed: Yes- Quality ID# [id number]:Eligible professional attests to documenting i n the medical record they obtained, updated, or reviewed the patient's current medications.. TECHNICAL DOCUMENTATION: JOB ID: [id number] Quality ID# 436: Final reports with documentation of one or more dose reduction techniques (e.g., Aut omated exposure control, adjustment of the mA and/or kV according to patient size, use of iterative r econstruction technique) 2010 [employer]- All Rights Reserved Reading location - IP/workstation name: [email or web address]
[2018-08-22] MEDS: ASPIRIN 81 MG TABLET, ENT COATED PO SCH (12:49)
[2018-08-22] MEDS: SUCRALFATE 1 GM TABLET PO SCH ×4 (12:49→22:07)
[2018-08-22] MEDS: PANTOPRAZOLE SODIUM 40 MG VIAL IV SCH (12:49)
[2018-08-22] MEDS: AMLODIPINE BESYLATE 5 MG TABLET PO SCH (12:49)
[2018-08-22] MEDS: LISINOPRIL 10 MG TABLET PO SCH (12:50)
[2018-08-22] MEDS: CARBOXYMETHYLCELLULOSE SOD 0.5% 0.4 ML DROPERETTE OU SCH ×4 (12:50→22:07)
[2018-08-22] MEDS: FLECAINIDE ACETATE 100 MG TABLET PO SCH ×2 (12:50→22:06)
[2018-08-22] MEDS: FLUTICASONE NASAL SPRAY 50 MCG/SPRY 120 SPRAY/16 GM NASL SCH ×2 (12:51→22:07)
[2018-08-22] MEDS: POLYETHYLENE GLYCOL 3350 POWDER 17 GM/1 PACKET PO SCH (12:52)
[2018-08-22] MEDS: NICOTINE 14 MG/24 HR PATCH.TD24 TD SCH (12:52)
--- NOTE | 2018-08-22 14:15 | RADIOLOGY REPORT (SQ) ---
EXAM DESCRIPTION: CHEST SINGLE VIEW COMPLETED DATE/TIME: 08/22/2018 2:07 pm REASON FOR STUDY: POST LUNG BIOPSY *2 HOUR FILM* COMPARISON: 08/22/2018 EXAM PARAMETERS: NUMBER OF VIEWS: One view. TECHNIQUE: Single frontal radiographic view of the chest acquired. RADIATION DOSE: NA LIMITATIONS: None. FINDINGS: LUNGS AND PLEURA: Nodule in the left upper lobe. No pneumothorax. No infiltrate or effus ion. MEDIASTINUM AND HILAR STRUCTURES: No masses. Contour normal. HEART AND VASCULAR STRUCTURES: Heart normal in size. Normal vasculature. BONES: No acute findings. HARDWARE: None in the chest. OTHER: No other significant finding. IMPRESSION: No pneumothorax. TECHNICAL DOCUMENTATION: JOB ID: [id number] [employer]- All Rights Reserved Reading location - IP/workstation name: [facility]
[2018-08-22] MEDS ORDERED: APIXABAN 5 MG TABLET PO SCH (18:00)
--- NOTE | 2018-08-22 19:37 | Progress Note ---
Provider Note Provider Note: CARDIOLOGY PROGRESS NOTES by Dr. Nisha Corea on 08/22/2018. Subjective: The patient remains in sinus rhythm. The patient denies any chest pain, shortness of breath or wheezing wheezing. There is no leg edema. There is no PND or orthopnea. There is no arrhythmias seen on the monitor. There is no recurrence of atrial fibrillation. The patient had a fine-needle biopsy of his 1 months. Path report awaited. PHYSICAL EXAMINATION: The patient is awake alert in no acute distress. He is well-built and well-nourished. He is well-groomed. Selected Entries 08/22/18 13:53 Temperature 97.9 F Temperature Oral Source Pulse Rate 63 Respiratory 16 Rate Blood Pressure 156/77 H Blood Pressure 103 Mean BP Location Right Arm BP Position Supine O2 Sat by Pulse 99 Oximetry Oxygen Delivery Room Air Method HEAD: Is atraumatic normocephalic. EYES: His pupils are equal regular reactive to light and accommodation. There is no clinical pallor there is no scleral icterus. External ocular movements are normal. ENT is negative. SKIN: There is no petechia or ecchymosis. There is no skin rash or skin lesions. NECK: Neck is supple. There is no JVD. Carotids are equal there is no bruit. There is no lymphadenopathy. There is no goiter trachea is central. There is no accessory muscles of respiration use. LUNGS: Clear to auscultation percussion, without any rhonchi rales or wheezing. There is no chest wall tenderness. HEART: S1-S2 is heard, S1 is of normal intensity. There is no S3 gallop there is no S4 gallop. Systolic murmur left sternal border and apex. There is no rub. ABDOMEN: Soft bowel sounds well heard. There is no hepatosplenomegaly. There is no tender areas of masses. EXTREMITIES: Femorals are well felt there is no femoral bruits. Leg pulses are well felt. There is no pedal edema. There is no DVT or cellulitis. There is no calf tenderness. There is no sinus or clubbing. JEWELRY DIPPER: The patient is conscious awake alert seems to be oriented x3 with no focal deficits. PSYCHIATRIC: The patient judgment and insight are intact. His affect is normal. 08/22/18 08/22/18 08/22/18 04:41 04:41 04:41 WBC 10.8 H RBC 4.05 L Hgb 11.7 L Hct 33.0 L Plt Count 360 APTT 87.1 H Sodium 136.9 L Potassium 4.4 Chloride 108 H Carbon Dioxide 19 L BUN 8 Creatinine 1.00 Est GFR ( Amer) > 60 Glucose 84 Calcium 9.4 Total Bilirubin 0.8 Direct Bilirubin 0.4 Neonat Total Bilirubin Not Reportable Neonat Direct Bilirubin Not Reportable Neonat Indirect Bili Not Reportable AST 26 ALT 45 Alkaline Phosphatase 141 H IMPRESSION RECOMMENDATION: 1. Paroxysmal atrial fibrillation. At present patient sinus rhythm. Continuous Tambocor. Continue current anticoagulation. As mentioned earlier by Dr. Bentley later would recommend the patient be sent for EP referral for possible atrial fibrillation ablation. 2. Bradycardia: The patient is asymptomatic with a stable blood pressure.. 3. Hypertension: Blood pressure fairly controlled. 4. Chest tightness/chest pain: Seems to be noncardiac especially with the patient having nonobstructive coronary artery disease. There is no evidence of plaque rupture at present. 5. Cerebrovascular accident: Seems to have recovered well. 6. Right Lung Mass: Status post fine needle biopsy. Path report awaited His medications have been reviewed. Discussed with the attending physician on the management of this patient. Medical decision making at present is of moderate complexity. 40 minutes spent on this patient with more than 50% time spent in direct patient care. Would restart the Eliquis when deemed to be safe. Continue his Tambocor and other cardiac medications. Cardiac status appears to be stable. Will sign off the case. Discussed with attending physician.
[2018-08-22] MEDS: ATORVASTATIN CALCIUM 40 MG TABLET PO SCH (22:07)
[2018-08-23] MEDS: OXYCODONE-ACETAMINOPHEN 5-325 MG TABLET PO PRN ×3 (00:23→18:19)
[2018-08-23] MEDS: ACETAMINOPHEN 325 MG TABLET PO PRN (05:00)
[2018-08-23 06:10] LABS: ABSOLUTE BASOPHILS # (AUTO) 0.1 10^3/uL (0.0-0.2); ABSOLUTE EOSINOPHILS # (AUTO) 0.1 10^3/uL (0.0-0.6); ABSOLUTE NEUT (AUTO) 7.3 10^3/uL (1.7-8.2); BASOPHILS % (AUTO) 0.7 % (0-2); EOSINOPHILS % (AUTO) 0.8 % (0-6); HEMATOCRIT 32.5 % (37.9-51.0); HEMOGLOBIN 11.7 g/dL (13.5-17.0); MEAN CORPUSCULAR HEMOGLOBIN 29.1 pg (27.0-33.4); MEAN CORPUSCULAR VOLUME 81 fl (80-97); MONOCYTES % (AUTO) 9.7 % (3-13); PLATELET COUNT 378 10^3/uL (150-450); RED BLOOD COUNT 4.03 10^6/uL (4.35-5.55); RED CELL DISTRIBUTION WIDTH 16.4 % (11.5-14.0); SEGMENTED NEUTROPHILS % (AUTO) 69.8 % (42-78); TOTAL CELLS COUNTED % (AUTO) 100 %; WHITE BLOOD COUNT 10.4 10^3/uL (4.0-10.5)
[2018-08-23 06:28] LABS: ALANINE AMINOTRANSFERASE 44 U/L (21-72); ALKALINE PHOSPHATASE 141 U/L (38-126); ANION GAP 11 (5-19); ASPARTATE AMINO TRANSFERASE 28 U/L (17-59); BILIRUBIN,DIRECT 0.3 mg/dL (0.0-0.4); BILIRUBIN,TOTAL 0.7 mg/dL (0.2-1.3); BLOOD UREA NITROGEN 10 mg/dL (7-20); CARBON DIOXIDE 19 mmol/L (22-30); CHLORIDE 105 mmol/L (98-107); GLUCOSE 91 mg/dL (75-110); POTASSIUM 4.3 mmol/L (3.6-5.0); SODIUM 135.1 mmol/L (137-145); TOTAL PROTEIN 6.5 g/dL (6.3-8.2)
[2018-08-23] MEDS ORDERED: CARBAMAZEPINE 200 MG TABLET PO ONE (09:00)
[2018-08-23] MEDS: LANSOPRAZOLE 30 MG TAB.RAP.DR PO SCH (10:00)
[2018-08-23] MEDS: FLUTICASONE NASAL SPRAY 50 MCG/SPRY 120 SPRAY/16 GM NASL SCH ×2 (10:00→21:45)
[2018-08-23] MEDS: NITROGLYCERIN 2% OINTMENT 1 GM PACKET TP SCH ×3 (10:00→17:15)
[2018-08-23] MEDS: SUCRALFATE 1 GM TABLET PO SCH ×4 (10:00→21:46)
[2018-08-23] MEDS: FLECAINIDE ACETATE 100 MG TABLET PO SCH ×2 (10:01→21:46)
[2018-08-23] MEDS: LISINOPRIL 10 MG TABLET PO SCH (10:01)
[2018-08-23] MEDS: CARBOXYMETHYLCELLULOSE SOD 0.5% 0.4 ML DROPERETTE OU SCH ×4 (10:01→21:46)
[2018-08-23] MEDS: AMLODIPINE BESYLATE 5 MG TABLET PO SCH (10:01)
[2018-08-23] MEDS: NICOTINE 14 MG/24 HR PATCH.TD24 TD SCH (10:02)
[2018-08-23] MEDS: POLYETHYLENE GLYCOL 3350 POWDER 17 GM/1 PACKET PO SCH (10:02)
[2018-08-23] MEDS: ASPIRIN 81 MG TABLET, ENT COATED PO SCH (10:02)
--- NOTE | 2018-08-23 10:33 | PDOC PROGRESS REPORT ---
Subjective Progress Note for:: 08/23/18 Subjective:: 58-year-old male past medical history of an NSTEMI 04/2018, A. fib on Eliquis, hypertension, GERD, arthritis and recently found left lung mass who was admitted on 08/18/2018. Patient was found to have a CVA based on MRI of the head. He has history of A. fib and was supposed to take Eliquis however he states that he was not provided [facility]. CVA was thought to have been caused due to A. fib. Patient was found to have a left lung mass and currently pending biopsy. 08/21/2018. On my encounter today patient is laying in his bed not in any acute distress he states he cannot get a good night sleep due to left eye pain and left groin pain. Patient was scheduled for lung biopsy today however due to some miscommunication between radiology and nursing staff his heparin was not held. Patient is scheduled to have his lung biopsy tomorrow at 1 PM. Patient denies any fever, chills, shortness of breath, nausea, vomiting, abdominal pain, diarrhea, constipation or any urinary symptoms. 08/22/2018. No acute events overnight. On my encounter today patient is resting comfortably in his bed. He stated that he is not feeling very well but does not provide any details. When asked what he means by his not feeling well he states he still having on and off left eye pain and on and off left chest pain. Is explaining his left eye and left chest pain to be stabbing in nature nonradiating. He denies any fever, chills, nausea, shortness of breath, abdominal pain, diarrhea, constipation or any urinary symptoms. Patient is n.p.o. since last midnight for scheduled lung biopsy. 08/23/2018. No acute events overnight. Status post lung biopsy on 08/22/2018. No complications noted. On my encounter patient is resting in bed sleeping. Easily arousable. Patient is still complaining of intermittent left orbit and left chest pain. He is describing the pain as stabbing and sharp. Gets better when he goes to sleep. Was given a lidocaine patch for his chest pain yesterday and he says it did not help. He is pleasant and cooperating with physical examination. He denies any fever, chills, shortness of breath, abdominal pain, diarrhea, constipation or any urinary symptoms. Reason For Visit: CHEST PAIN,BRADYCARDIA Physical Exam Vital Signs: Temp Pulse Resp BP Pulse Ox 98.5 F 66 18 138/72 H 97 08/23/18 07:29 08/23/18 07:29 08/23/18 07:29 08/23/18 07:29 08/23/18 10:02 Intake & Output 08/22/18 08/23/18 08/24/18 06:59 06:59 06:59 Intake Total 3769 3387 Output Total 1300 1300 Balance 2469 2087 Weight 91.2 kg 88.3 kg General appearance: PRESENT: no acute distress, well-developed, well-nourished Head exam: PRESENT: atraumatic, normocephalic Eye exam: PRESENT: conjunctiva pink, EOMI, PERRLA. ABSENT: scleral icterus Ear exam: PRESENT: normal external ear exam Mouth exam: PRESENT: moist, tongue midline Neck exam: ABSENT: carotid bruit, JVD, lymphadenopathy, thyromegaly Respiratory exam: PRESENT: clear to auscultation dong. ABSENT: rales, rhonchi, wheezes Cardiovascular exam: PRESENT: RRR. ABSENT: diastolic murmur, rubs, systolic murmur Pulses: PRESENT: normal dorsalis pedis pul Vascular exam: PRESENT: normal capillary refill GI/Abdominal exam: PRESENT: normal bowel sounds, soft. ABSENT: distended, guarding, mass, organolmegaly, rebound, tenderness Rectal exam: PRESENT: deferred Extremities exam: PRESENT: full ROM. ABSENT: calf tenderness, clubbing, pedal edema Neurological exam: PRESENT: alert, awake, oriented to person, oriented to place , oriented to time, oriented to situation, CN II-XII grossly intact. ABSENT: motor sensory deficit Psychiatric exam: PRESENT: appropriate affect, normal mood. ABSENT: homicidal ideation, suicidal ideation Skin exam: PRESENT: dry, intact, warm. ABSENT: cyanosis, rash Results Laboratory Results: 08/23/18 05:27 08/23/18 05:27 08/23/18 08/23/18 05:27 05:27 WBC 10.4 RBC 4.03 L Hgb 11.7 L Hct 32.5 L MCV 81 MCH 29.1 MCHC 36.0 RDW 16.4 H Plt Count 378 Seg Neutrophils % 69.8 Lymphocytes % 19.0 Monocytes % 9.7 Eosinophils % 0.8 Basophils % 0.7 Absolute Neutrophils 7.3 Absolute Lymphocytes 2.0 Absolute Monocytes 1.0 Absolute Eosinophils 0.1 Absolute Basophils 0.1 Sodium 135.1 L Potassium 4.3 Chloride 105 Carbon Dioxide 19 L Anion Gap 11 BUN 10 Creatinine 1.03 Est GFR ( Amer) > 60 Est GFR (Non-Af Amer) > 60 Glucose 91 Calcium 9.0 Total Bilirubin 0.7 AST 28 ALT 44 Alkaline Phosphatase 141 H Total Protein 6.5 Albumin 3.0 L 08/19/18 08/19/18 08/19/18 02:17 02:17 06:56 Creatine Kinase 44 L 39 L CK-MB (CK-2) 0.66 Troponin I 0.031 08/19/18 08/19/18 08/19/18 06:56 15:40 15:40 Creatine Kinase 43 L CK-MB (CK-2) 0.72 0.87 Troponin I 0.027 0.021 Impressions: Head CT 08/17/18 15:17 IMPRESSION: NORMAL BRAIN CT WITHOUT CONTRAST. EVIDENCE OF ACUTE STROKE: NO. Head MRI 08/17/18 17:48 IMPRESSION: Positive for numerous lacunar acute or sub-acute infarctions involving both cerebral hemispheres as well as both cerebellar hemispheres. EVIDENCE OF ACUTE STROKE: YES. Bilateral anterior and posterior circulation Carotid Doppler Study 08/18/18 00:00 IMPRESSION: NO HEMODYNAMICALLY SIGNIFICANT STENOSIS. Head CTA 08/18/18 00:00 IMPRESSION: NO CTA EVIDENCE OF STENOSIS OR ANEURYSM OF THE [place] OF CHILDRESS. Neck CTA 08/18/18 00:00 IMPRESSION: 1. NORMAL CTA OF THE EXTRA-CRANIAL CAROTID AND VERTEBRAL ARTERIES. 2. LEFT SUPRAHILAR AND AORTA PULMONARY WINDOW MASS WHICH HAS INCREASED IN SIZE SINCE THE PRIOR CHEST CT. Thyroid Ultrasound 08/18/18 00:00 IMPRESSION: VERY LIMITED STUDY. 1 CM COLLOID CYST LEFT LOWER POLE THYROID. Lung Scan-VQ NM 08/18/18 08:50 IMPRESSION: Perfusion images show lack of radiotracer activity in the left upper lobe apical segments consistent with ventilation-perfusion mismatch. Scrotum Ultrasound 08/21/18 00:00 IMPRESSION: NORMAL SCROTAL ULTRASOUND. NO EVIDENCE OF TESTICULAR MASS OR TORSION. Chest X-Ray 08/22/18 00:00 IMPRESSION: No pneumothorax. Guidance Needle Placement CT 08/22/18 00:00 IMPRESSION: CT GUIDED BIOPSY OF THE LEFT UPPER LUNG NODULE PERFORMED WITHOUT IMMEDIATE COMPLICATION. PATHOLOGY PENDING. Lung Biopsy CT 08/22/18 00:00 IMPRESSION: CT GUIDED BIOPSY OF THE LEFT UPPER LUNG NODULE PERFORMED WITHOUT IMMEDIATE COMPLICATION. PATHOLOGY PENDING. Assessment & Plan - Diagnosis (1) Cerebrovascular accident Qualifiers: CVA mechanism: unspecified Qualified Code(s): I63.9 - Cerebral infarction, unspecified Is this a current diagnosis for this admission?: Yes Plan: MRI head on 08/17/2018 was positive for numerous lacunar acute or subacute infarctions involving both cerebral and cerebellar hemispheres. Carotid Doppler was negative, head CT was also negative. Patient was not compliant with his Eliquis for the underlying A. fib which may have caused this CVA. Not a TPA candidate due to being on anticoagulation for underlying A. fib. Continue aspirin, high intensity statin. DC heparin. Restart NOACs. Continue PT OT ST. (2) Chest pain Qualifiers: Chest pain type: unspecified Qualified Code(s): R07.9 - Chest pain, unspecified Is this a current diagnosis for this admission?: Yes Plan: Unchanged. Chest pain is intermittent sharp and stabbing nonradiating no relieving or exacerbating factors. Atypical pain unlikely cardiac. Lidocaine patch did not help. We will try Nitropaste today if it helps. Troponins trending down. Workup for [place] negative on this admission. History of NSTEMI April 2018. Cath in April 2018 showed 10-20% stenosis in LMA. Echo on this admission showed normal ejection fraction and left ventricular hypertrophy. Note: Chest pain was deemed to be possibly due to coronary vasospasm. Chest pain seems more musculoskeletal than cardiac. Will switch amlodipine with isosorbide mononitrate. Cardiology following (3) Atrial fibrillation with RVR Is this a current diagnosis for this admission?: Yes Plan: [id number] Score 3. Rate controlled. Switch to Eliquis with Xarelto for once daily dosing. Started on flecainide by cardiology. As per cardiology note patient may need some outpatient follow-up for definitive treatment of his A. fib such as ablation due to noncompliance to his anticoagulation. Cardiology following. (4) Lung mass Is this a current diagnosis for this admission?: Yes Plan: Left upper lobe. Status post lung biopsy on 08/22/2018. Pending pathology report. Advised on quitting smoking. (5) Tobacco abuse Is this a current diagnosis for this admission?: Yes Plan: Counseled on quitting. Continue nicotine patch. (6) Bradycardia Is this a current diagnosis for this admission?: Yes Plan: Stable. Rate running between 50s and 60s. Asymptomatic. May be due to underlying sleep apnea or a sick sinus syndrome as per cardiology note. No intervention at this point as per cardiology recommendation. Outpatient cardiology follow-up. (7) Eye pain Qualifiers: Laterality: left Qualified Code(s): H57.12 - Ocular pain, left eye Is this a current diagnosis for this admission?: No Plan: Patient still having on and off left-sided orbit pain. Patient was worked up for GCA and previous admission. Ophthalmology was consulted and patient was deemed to be low risk for GCA. MRI head does not show any abnormalities in the orbits. Continue supportive measures. Patient denies any visual changes. Patient could possibly have some type of trigeminal neuralgia, atypical migraine or cluster headache. Will try carbamazepine and see if it helps. Patient may benefit from an outpatient neurology consult. No inpatient neurology consult available. (8) GERD (gastroesophageal reflux disease) Is this a current diagnosis for this admission?: Yes Plan: Continue Protonix. Patient denies any melena hematochezia or any recent weight loss. H&H is stable. Guaiac negative. Outpatient GI follow-up. (9) Hypertension Qualifiers: Hypertension type: essential hypertension Qualified Code(s): I10 - Essential (primary) hypertension Is this a current diagnosis for this admission?: Yes Plan: Euvolemic, increase lisinopril to 40 mg daily and isosorbide mononitrate. Adjust medications as needed. (10) Left groin pain Is this a current diagnosis for this admission?: Yes Plan: Improving. Ultrasound on 08/21/2018 was negative for any acute abnormalities except for left inguinal lymph node measuring 14 x 7 mm in size without worrisome features.
[2018-08-23] MEDS: ISOSORBIDE MONONITRATE 60 MG TAB.ER.24H PO SCH (11:36)
[2018-08-23] MEDS: NORMAL SALINE 1000 ML 1,000 ML IV PRN ×2 (11:37→21:48)
[2018-08-23] MEDS: KETOROLAC TROMETHAMINE 10 MG TABLET PO PRN (14:44)
[2018-08-23] MEDS ORDERED: RIVAROXABAN 10 MG TABLET PO SCH (17:00)
[2018-08-23] MEDS: ATORVASTATIN CALCIUM 40 MG TABLET PO SCH (21:46)
[2018-08-24] MEDS: OXYCODONE-ACETAMINOPHEN 5-325 MG TABLET PO PRN ×2 (00:13→09:10)
[2018-08-24] MEDS: NITROGLYCERIN 2% OINTMENT 1 GM PACKET TP SCH ×3 (00:14→12:00)
[2018-08-24] MEDS: KETOROLAC TROMETHAMINE 10 MG TABLET PO PRN (03:50)
[2018-08-24 04:52] LABS: ABSOLUTE BASOPHILS # (AUTO) 0.1 10^3/uL (0.0-0.2); ABSOLUTE EOSINOPHILS # (AUTO) 0.1 10^3/uL (0.0-0.6); ABSOLUTE LYMPHOCYTES (AUTO) 2.4 10^3/uL (0.5-4.7); ABSOLUTE NEUT (AUTO) 5.5 10^3/uL (1.7-8.2); BASOPHILS % (AUTO) 0.9 % (0-2); EOSINOPHILS % (AUTO) 1.1 % (0-6); HEMATOCRIT 29.9 % (37.9-51.0); HEMOGLOBIN 10.6 g/dL (13.5-17.0); MEAN CORPUSCULAR HEMOGLOBIN 28.6 pg (27.0-33.4); MEAN CORPUSCULAR HGB CONC 35.5 g/dL (32.0-36.0); MEAN CORPUSCULAR VOLUME 81 fl (80-97); MONOCYTES % (AUTO) 10.7 % (3-13); PLATELET COUNT 360 10^3/uL (150-450); SEGMENTED NEUTROPHILS % (AUTO) 60.3 % (42-78); TOTAL CELLS COUNTED % (AUTO) 100 %; WHITE BLOOD COUNT 9.1 10^3/uL (4.0-10.5)
[2018-08-24 05:17] LABS: ALANINE AMINOTRANSFERASE 37 U/L (21-72); ALBUMIN 2.7 g/dL (3.5-5.0); ALKALINE PHOSPHATASE 122 U/L (38-126); ANION GAP 10 (5-19); ASPARTATE AMINO TRANSFERASE 24 U/L (17-59); BILIRUBIN,DIRECT 0.3 mg/dL (0.0-0.4); BILIRUBIN,TOTAL 0.7 mg/dL (0.2-1.3); BLOOD UREA NITROGEN 9 mg/dL (7-20); CALCIUM 8.9 mg/dL (8.4-10.2); CARBON DIOXIDE 19 mmol/L (22-30); CHLORIDE 107 mmol/L (98-107); GLUCOSE 89 mg/dL (75-110); POTASSIUM 4.1 mmol/L (3.6-5.0); SODIUM 136.3 mmol/L (137-145); TOTAL PROTEIN 5.9 g/dL (6.3-8.2)
[2018-08-24] MEDS: LANSOPRAZOLE 30 MG TAB.RAP.DR PO SCH (06:01)
[2018-08-24] MEDS: ISOSORBIDE MONONITRATE 60 MG TAB.ER.24H PO SCH (09:09)
[2018-08-24] MEDS: SUCRALFATE 1 GM TABLET PO SCH ×2 (09:09→14:59)
[2018-08-24] MEDS: ASPIRIN 81 MG TABLET, ENT COATED PO SCH (09:09)
[2018-08-24] MEDS: LISINOPRIL 10 MG TABLET PO SCH (09:10)
[2018-08-24] MEDS: FLECAINIDE ACETATE 100 MG TABLET PO SCH (09:10)
[2018-08-24] MEDS: FLUTICASONE NASAL SPRAY 50 MCG/SPRY 120 SPRAY/16 GM NASL SCH (09:11)
[2018-08-24] MEDS: POLYETHYLENE GLYCOL 3350 POWDER 17 GM/1 PACKET PO SCH (09:11)
[2018-08-24] MEDS: CARBOXYMETHYLCELLULOSE SOD 0.5% 0.4 ML DROPERETTE OU SCH ×2 (09:12→14:59)
[2018-08-24] MEDS: NICOTINE 14 MG/24 HR PATCH.TD24 TD SCH (09:12)
--- NOTE | 2018-08-24 10:39 | PDOC PROGRESS REPORT ---
Subjective Progress Note for:: 08/24/18 Subjective:: 58-year-old male past medical history of an NSTEMI 04/2018, A. fib on Eliquis, hypertension, GERD, arthritis and recently found left lung mass who was admitted on 08/18/2018. Patient was found to have a CVA based on MRI of the head. He has history of A. fib and was supposed to take Eliquis however he states that he was not provided [facility]. CVA was thought to have been caused due to A. fib. Patient was found to have a left lung mass and currently pending biopsy. 08/21/2018. On my encounter today patient is laying in his bed not in any acute distress he states he cannot get a good night sleep due to left eye pain and left groin pain. Patient was scheduled for lung biopsy today however due to some miscommunication between radiology and nursing staff his heparin was not held. Patient is scheduled to have his lung biopsy tomorrow at 1 PM. Patient denies any fever, chills, shortness of breath, nausea, vomiting, abdominal pain, diarrhea, constipation or any urinary symptoms. 08/22/2018. No acute events overnight. On my encounter today patient is resting comfortably in his bed. He stated that he is not feeling very well but does not provide any details. When asked what he means by his not feeling well he states he still having on and off left eye pain and on and off left chest pain. Is explaining his left eye and left chest pain to be stabbing in nature nonradiating. He denies any fever, chills, nausea, shortness of breath, abdominal pain, diarrhea, constipation or any urinary symptoms. Patient is n.p.o. since last midnight for scheduled lung biopsy. 08/23/2018. No acute events overnight. Status post lung biopsy on 08/22/2018. No complications noted. On my encounter patient is resting in bed sleeping. Easily arousable. Patient is still complaining of intermittent left orbit and left chest pain. He is describing the pain as stabbing and sharp. Gets better when he goes to sleep. Was given a lidocaine patch for his chest pain yesterday and he says it did not help. He is pleasant and cooperating with physical examination. He denies any fever, chills, shortness of breath, abdominal pain, diarrhea, constipation or any urinary symptoms. 08/24/2018. No acute events overnight. On my encounter patient is laying in bed comfortably he is more pleasant and cooperative with physical examination. He is stating that his right eye pain is improving since being started on carbamazepine and his left chest pain is also improving since being started on Nitropaste and isosorbide mononitrate however he is complaining of headache now. Plan of care regarding anticoagulation was discussed with him. Patient does not want to be started on Coumadin because he will not be able to do frequent blood tests for his INR due to lack of transportation. He is still wants to be discharged on NOACs. Patient does not feel like he is ready to go back home because he is living by himself. He wants to be transferred to a rehab or assisted living but is not sure about his final decision and wants to discuss the idea with his kids. Alternatively patient wants to be transferred to [place] where he can be taken care of. Patient denies any fever, chills, nausea, vomiting, diarrhea, constipation or any urinary symptoms. Reason For Visit: CHEST PAIN,BRADYCARDIA Physical Exam Vital Signs: Temp Pulse Resp BP Pulse Ox 99.1 F 68 18 132/66 H 98 08/24/18 07:35 08/24/18 07:35 08/24/18 07:35 08/24/18 07:35 08/24/18 09:15 Intake & Output 08/23/18 08/24/18 08/25/18 06:59 06:59 06:59 Intake Total 3387 2828 Output Total 1300 1450 Balance 2087 1378 Weight 88.3 kg 87.9 kg General appearance: PRESENT: no acute distress, well-developed, well-nourished Head exam: PRESENT: atraumatic, normocephalic Eye exam: PRESENT: conjunctiva pink, EOMI, PERRLA. ABSENT: scleral icterus Ear exam: PRESENT: normal external ear exam Mouth exam: PRESENT: moist, tongue midline Neck exam: ABSENT: carotid bruit, JVD, lymphadenopathy, thyromegaly Respiratory exam: PRESENT: clear to auscultation dong. ABSENT: rales, rhonchi, wheezes Cardiovascular exam: PRESENT: RRR. ABSENT: diastolic murmur, rubs, systolic murmur Pulses: PRESENT: normal dorsalis pedis pul Vascular exam: PRESENT: normal capillary refill GI/Abdominal exam: PRESENT: normal bowel sounds, soft. ABSENT: distended, guarding, mass, organolmegaly, rebound, tenderness Rectal exam: PRESENT: deferred Extremities exam: PRESENT: full ROM. ABSENT: calf tenderness, clubbing, pedal edema Neurological exam: PRESENT: alert, awake, oriented to person, oriented to place , oriented to time, oriented to situation, CN II-XII grossly intact. ABSENT: motor sensory deficit Psychiatric exam: PRESENT: appropriate affect, normal mood. ABSENT: homicidal ideation, suicidal ideation Skin exam: PRESENT: dry, intact, warm. ABSENT: cyanosis, rash Results Laboratory Results: 08/24/18 04:29 08/24/18 04:29 08/24/18 08/24/18 04:29 04:29 WBC 9.1 RBC 3.70 L Hgb 10.6 L Hct 29.9 L MCV 81 MCH 28.6 MCHC 35.5 RDW 16.0 H Plt Count 360 Seg Neutrophils % 60.3 Lymphocytes % 27.0 Monocytes % 10.7 Eosinophils % 1.1 Basophils % 0.9 Absolute Neutrophils 5.5 Absolute Lymphocytes 2.4 Absolute Monocytes 1.0 Absolute Eosinophils 0.1 Absolute Basophils 0.1 Sodium 136.3 L Potassium 4.1 Chloride 107 Carbon Dioxide 19 L Anion Gap 10 BUN 9 Creatinine 1.05 Est GFR ( Amer) > 60 Est GFR (Non-Af Amer) > 60 Glucose 89 Calcium 8.9 Total Bilirubin 0.7 AST 24 ALT 37 Alkaline Phosphatase 122 Total Protein 5.9 L Albumin 2.7 L 08/19/18 08/19/18 08/19/18 02:17 02:17 06:56 Creatine Kinase 44 L 39 L CK-MB (CK-2) 0.66 Troponin I 0.031 08/19/18 08/19/18 08/19/18 06:56 15:40 15:40 Creatine Kinase 43 L CK-MB (CK-2) 0.72 0.87 Troponin I 0.027 0.021 Impressions: Head CT 08/17/18 15:17 IMPRESSION: NORMAL BRAIN CT WITHOUT CONTRAST. EVIDENCE OF ACUTE STROKE: NO. Head MRI 08/17/18 17:48 IMPRESSION: Positive for numerous lacunar acute or sub-acute infarctions involving both cerebral hemispheres as well as both cerebellar hemispheres. EVIDENCE OF ACUTE STROKE: YES. Bilateral anterior and posterior circulation Carotid Doppler Study 08/18/18 00:00 IMPRESSION: NO HEMODYNAMICALLY SIGNIFICANT STENOSIS. Head CTA 08/18/18 00:00 IMPRESSION: NO CTA EVIDENCE OF STENOSIS OR ANEURYSM OF THE [place] CHILDRESS. Neck CTA 08/18/18 00:00 IMPRESSION: 1. NORMAL CTA OF THE EXTRA-CRANIAL CAROTID AND VERTEBRAL ARTERIES. 2. LEFT SUPRAHILAR AND AORTA PULMONARY WINDOW MASS WHICH HAS INCREASED IN SIZE SINCE THE PRIOR CHEST CT. Thyroid Ultrasound 08/18/18 00:00 IMPRESSION: VERY LIMITED STUDY. 1 CM COLLOID CYST LEFT LOWER POLE THYROID. Lung Scan-VQ NM 08/18/18 08:50 IMPRESSION: Perfusion images show lack of radiotracer activity in the left upper lobe apical segments consistent with ventilation-perfusion mismatch. Scrotum Ultrasound 08/21/18 00:00 IMPRESSION: NORMAL SCROTAL ULTRASOUND. NO EVIDENCE OF TESTICULAR MASS OR TORSION. Chest X-Ray 08/22/18 00:00 IMPRESSION: No pneumothorax. Guidance Needle Placement CT 08/22/18 00:00 IMPRESSION: CT GUIDED BIOPSY OF THE LEFT UPPER LUNG NODULE PERFORMED WITHOUT IMMEDIATE COMPLICATION. PATHOLOGY PENDING. Lung Biopsy CT 08/22/18 00:00 IMPRESSION: CT GUIDED BIOPSY OF THE LEFT UPPER LUNG NODULE PERFORMED WITHOUT IMMEDIATE COMPLICATION. PATHOLOGY PENDING. Assessment & Plan - Diagnosis (1) Cerebrovascular accident Qualifiers: CVA mechanism: unspecified Qualified Code(s): I63.9 - Cerebral infarction, unspecified Is this a current diagnosis for this admission?: Yes Plan: MRI head on 08/17/2018 was positive for numerous lacunar acute or subacute infarctions involving both cerebral and cerebellar hemispheres. Carotid Doppler was negative, head CT was also negative. Patient was not compliant with his Eliquis for the underlying A. fib which may have caused this CVA. Not a TPA candidate due to being on anticoagulation for underlying A. fib. Continue aspirin, high intensity statin. DC heparin. Restart NOACs. Patient does not want to be started on Coumadin. Continue PT OT ST. (2) Chest pain Qualifiers: Chest pain type: unspecified Qualified Code(s): R07.9 - Chest pain, unspecified Is this a current diagnosis for this admission?: Yes Plan: Improving but not resolved. Chest pain is intermittent sharp and stabbing nonradiating no relieving or exacerbating factors. Atypical pain unlikely cardiac. Lidocaine patch did not help. Nitropaste has helped his chest pain. He is having headaches. Troponins trending down. Workup for [place] negative on this admission. History of NSTEMI April 2018. Cath in April 2018 showed 10-20% stenosis in LMA. Echo on this admission showed normal ejection fraction and left ventricular hypertrophy. Note: Chest pain was deemed to be possibly due to coronary vasospasm. Chest pain seems more musculoskeletal than cardiac. Will switch amlodipine with isosorbide mononitrate. Cardiology following (3) Atrial fibrillation with RVR Is this a current diagnosis for this admission?: Yes Plan: [id number] Score 3. Rate controlled. Switch to Eliquis with Xarelto for once daily dosing. Started on flecainide by cardiology. As per cardiology note patient may need some outpatient follow-up for definitive treatment of his A. fib such as ablation due to noncompliance to his anticoagulation. Cardiology following. (4) Lung mass Is this a current diagnosis for this admission?: Yes Plan: Left upper lobe. Status post lung biopsy on 08/22/2018. Pending pathology report. Advised on quitting smoking. (5) Tobacco abuse Is this a current diagnosis for this admission?: Yes Plan: Counseled on quitting. Continue nicotine patch. (6) Bradycardia Is this a current diagnosis for this admission?: Yes Plan: Resolved. May be due to underlying sleep apnea or a sick sinus syndrome as per cardiology note. No intervention at this point as per cardiology recommendation. Outpatient cardiology follow-up. (7) Eye pain Qualifiers: Laterality: left Qualified Code(s): H57.12 - Ocular pain, left eye Is this a current diagnosis for this admission?: No Plan: Improving but not resolved since being started on carbamazepine. Patient was worked up for GCA and previous admission. Ophthalmology was consulted and patient was deemed to be low risk for GCA. MRI head does not show any abnormalities in the orbits. Continue supportive measures. Patient denies any visual changes. Patient could possibly have some type of trigeminal neuralgia, atypical migraine or cluster headache. Will try carbamazepine and see if it helps. Patient may benefit from an outpatient neurology consult. No inpatient neurology consult available. (8) GERD (gastroesophageal reflux disease) Is this a current diagnosis for this admission?: Yes Plan: Continue Protonix. Patient denies any melena hematochezia or any recent weight loss. H&H is stable. Guaiac negative. Outpatient GI follow-up. (9) Hypertension Qualifiers: Hypertension type: essential hypertension Qualified Code(s): I10 - Essential (primary) hypertension Is this a current diagnosis for this admission?: Yes Plan: Euvolemic normotensive. Continue lisinopril 40 mg daily and isosorbide mononitrate 60 mg daily. Adjust medications as needed. (10) Left groin pain Is this a current diagnosis for this admission?: Yes Plan: Improving. Ultrasound on 08/21/2018 was negative for any acute abnormalities except for left inguinal lymph node measuring 14 x 7 mm in size without worrisome features.
[2018-08-24] MEDS: NORMAL SALINE 1000 ML 1,000 ML IV PRN (12:07)
--- NOTE | 2018-08-24 15:43 | PDOC DISCHARGE SUMMARY ---
General - Admit/Disc Date/PCP Admission Date/Primary Care Provider: 08/18/18 08:26 FRANCINE LUCERO DO Discharge Date: 08/24/18 - Discharge Diagnosis (1) Cerebrovascular accident Is this a current diagnosis for this admission?: Yes (2) Chest pain Is this a current diagnosis for this admission?: Yes (3) Atrial fibrillation with RVR Is this a current diagnosis for this admission?: Yes (4) Lung mass Is this a current diagnosis for this admission?: Yes (5) Tobacco abuse Is this a current diagnosis for this admission?: Yes (6) Bradycardia Is this a current diagnosis for this admission?: Yes (7) Eye pain Is this a current diagnosis for this admission?: No (8) GERD (gastroesophageal reflux disease) Is this a current diagnosis for this admission?: Yes (9) Hypertension Is this a current diagnosis for this admission?: Yes (10) Left groin pain Is this a current diagnosis for this admission?: Yes - Additional Information Resuscitation Status: Full Code Prescriptions: Flecainide Acetate [Tambocor 100 mg Tablet] 50 mg PO Q12 30 Days #60 tablet Fluticasone Propionate [Flonase Nasal Flag Pond 50 Mcg/Flag Pond 16 gm] 1 spray NASL Q12 30 Days #60 spray.pump Isosorbide Mononitrate [Imdur 60 mg Tablet.er] 60 mg PO DAILY 30 Days #30 tab.er.24h Rivaroxaban [Xarelto 10 mg Tablet] 20 mg PO WSUPPER 30 Days #30 tablet Home Medications: Atorvastatin Calcium [Lipitor 40 mg Tablet] 40 mg PO QHS 08/01/18 Lisinopril [Prinivil 40 mg Tablet] 40 mg PO DAILY 08/01/18 Polyethylene Glycol 3350 [Miralax Powder 17 gm/Packet] 1 packet PO DAILY Aspirin [Ecotrin 81 mg EC Tablet] 81 mg PO DAILY tabec 08/03/18 Carboxymethylcellulose Sodium [Refresh Plus 0.5% Oph Soln 0.4 ml Droperette] 1 drop OU QID #1 droperette 08/03/18 Fluticasone Propionate [Flonase Nasal [place] 50 Mcg/Flag [place]ond 16 gm] 2 sprays NASL Q12 #1 inhaler 08/03/18 Nicotine [Nicoderm 14 mg/24 Hr Transdermal Patch] 1 each TD DAILY #30 patch.td24 08/03/18 Famotidine [Pepcid 20 mg Tablet] 20 mg PO BID #20 tablet 08/13/18 Sucralfate [Carafate 1 gm Tablet] 1 gm PO QID #20 tablet 08/13/18 Acetaminophen [Tylenol 325 mg Tablet] 650 mg PO Q4HP PRN 08/18/18 Flecainide Acetate [Tambocor 100 mg Tablet] 50 mg PO Q12 30 Days #60 tablet Fluticasone Propionate [Flonase Nasal Flag [place]ond 50 Mcg/Flag Pond 16 gm] 1 spray NASL Q12 30 Days #60 spray.pump 08/24/18 Isosorbide Mononitrate [Imdur 60 mg Tablet.er] 60 mg PO DAILY 30 Days #30 tab.er.24h 08/24/18 Rivaroxaban [Xarelto 10 mg Tablet] 20 mg PO WSUPPER 30 Days #30 tablet 08/24/18 History of Present Illness Patient complains of: Chest pain History of Present Illness: 58-year-old male past medical history of an NSTEMI 04/2018, A. fib on Eliquis, hypertension, GERD, arthritis and recently found left lung mass who was admitted on 08/18/2018. Patient was found to have a CVA based on MRI of the head. He has history of A. fib and was supposed to take Eliquis however he states that he was not provided [facility]. CVA was thought to have been caused due to A. fib. Patient was found to have a left lung mass. Hospital Course Hospital Course: (1) Cerebrovascular accident MRI head on 08/17/2018 was positive for numerous lacunar acute or subacute infarctions involving both cerebral and cerebellar hemispheres. Carotid Doppler was negative, head CT was also negative. Patient was not compliant with his Eliquis for the underlying A. fib which may have caused this CVA. Not a TPA candidate due to being on anticoagulation for underlying A. fib. He continued his aspirin and high intensity statin. He was asked to continue his aspirin and statins upon discharge. DC heparin. Restart NOACs. Patient does not want to be started on Coumadin. Continue PT OT ST. (2) Chest pain Atypical, most likely musculoskeletal or due to coronary vasospasm. Mild improvement with isosorbide mononitrate and Nitropaste however it caused some headache. Chest pain is intermittent sharp and stabbing nonradiating no relieving or exacerbating factors. Lidocaine patch did not help. Cardiology was consulted. Troponins trended down. Echo on admission showed normal ejection fraction with left ventricular hypertrophy possibly due to his underlying hypertension. Workup for MA negative on this admission. History of NSTEMI April 2018. Cath in April 2018 showed 10-20% stenosis in LMA. hypertrophy. Note: Chest pain was deemed to be possibly due to coronary vasospasm. Chest pain seems more musculoskeletal than cardiac. Was started on amlodipine then switched to isosorbide mononitrate which helped a little bit. Patient asked to follow with cardiology either at [place] or as outpatient. (3) Atrial fibrillation with RVR [id number] Score 3. Rate controlled. He was switched to Xarelto from Eliquis because of once daily dosing. And was started on flecainide by cardiology. Since he is not compliant with his medications as per cardiology note patient may need some outpatient follow-up for definitive treatment of his A. fib such as ablation due to noncompliance to his anticoagulation. He was asked to follow -up with cardiology as outpatient. production planner scheduler was consulted for assistance with Xarelto. Was provided with help to get 1 month supply of Xarelto and was strongly advised to follow-up at the [place] so he could get his Xarelto supplies. A follow-up appointment was also made for him at the [place]. Refused to be switched to Coumadin because of too many blood draws and also because of the fact that he does not have any transportation to to go to Coumadin clinic. (4) Lung mass Left upper lobe. Status post lung biopsy on 08/22/2018. Pending pathology report at the time of discharge. Patient was advised to follow-up with the report. Advised on quitting smoking. (5) Tobacco abuse Counseled on quitting. Continue nicotine patch. (6) Bradycardia Is this a current diagnosis for this admission?: Yes Plan: Resolved. May be due to underlying sleep apnea or a sick sinus syndrome as per cardiology note. No intervention at this point as per cardiology recommendation. Outpatient cardiology follow-up. (7) Eye pain Patient was worked up for GCA and previous admission. Ophthalmology was consulted and patient was deemed to be low risk for GCA. MRI head does not show any abnormalities in the orbits. Denies any visual changes. Patient could possibly have some type of trigeminal neuralgia, atypical migraine or cluster headache. Pain which helped mildly. ill try carbamazepine and see if it helps. Patient may benefit from an outpatient neurology consult. No inpatient neurology consult available. (8) GERD (gastroesophageal reflux disease) Continue Protonix. Patient denies any melena hematochezia or any recent weight loss. H&H is stable. Guaiac negative. Asked to continue his PPI and follow- up with GI as outpatient. (9) Hypertension Euvolemic normotensive. He was continued on lisinopril 40 mg and isosorbide mononitrate 60 mg was added to his regimen. His amlodipine was DC'd. He was asked to follow-up with his PCP to adjust his medications. (10) Left groin pain Improved. Ultrasound on 08/21/2018 was negative for any acute abnormalities except for left inguinal lymph node measuring 14 x 7 mm in size without worrisome features. Physical Exam Vital Signs: Temp Pulse Resp BP Pulse Ox 98.7 F 59 L 18 124/68 96 08/24/18 11:24 08/24/18 11:24 08/24/18 11:24 08/24/18 11:24 08/24/18 11:24 Intake & Output 08/23/18 08/24/18 08/25/18 06:59 06:59 06:59 Intake Total 3387 2828 1355 Output Total 1300 1450 650 Balance 2087 1378 705 Weight 88.3 kg 87.9 kg General appearance: PRESENT: no acute distress, well-developed, well-nourished Head exam: PRESENT: atraumatic, normocephalic Eye exam: PRESENT: conjunctiva pink, EOMI, PERRLA. ABSENT: scleral icterus Ear exam: PRESENT: normal external ear exam Mouth exam: PRESENT: moist, tongue midline Neck exam: ABSENT: carotid bruit, JVD, lymphadenopathy, thyromegaly Respiratory exam: PRESENT: clear to auscultation dong. ABSENT: rales, rhonchi, wheezes Cardiovascular exam: PRESENT: RRR. ABSENT: diastolic murmur, rubs, systolic murmur Pulses: PRESENT: normal dorsalis pedis pul Vascular exam: PRESENT: normal capillary refill GI/Abdominal exam: PRESENT: normal bowel sounds, soft. ABSENT: distended, guarding, mass, organolmegaly, rebound, tenderness Rectal exam: PRESENT: deferred Extremities exam: PRESENT: full ROM. ABSENT: calf tenderness, clubbing, pedal edema Neurological exam: PRESENT: alert, awake, oriented to person, oriented to place , oriented to time, oriented to situation, CN II-XII grossly intact. ABSENT: motor sensory deficit Psychiatric exam: PRESENT: appropriate affect, normal mood. ABSENT: homicidal ideation, suicidal ideation Skin exam: PRESENT: dry, intact, warm. ABSENT: cyanosis, rash Results Laboratory Results: 08/24/18 04:29 08/24/18 04:29 08/24/18 08/24/18 04:29 04:29 WBC 9.1 RBC 3.70 L Hgb 10.6 L Hct 29.9 L MCV 81 MCH 28.6 MCHC 35.5 RDW 16.0 H Plt Count 360 Seg Neutrophils % 60.3 Lymphocytes % 27.0 Monocytes % 10.7 Eosinophils % 1.1 Basophils % 0.9 Absolute Neutrophils 5.5 Absolute Lymphocytes 2.4 Absolute Monocytes 1.0 Absolute Eosinophils 0.1 Absolute Basophils 0.1 Sodium 136.3 L Potassium 4.1 Chloride 107 Carbon Dioxide 19 L Anion Gap 10 BUN 9 Creatinine 1.05 Est GFR ( Amer) > 60 Est GFR (Non-Af Amer) > 60 Glucose 89 Calcium 8.9 Total Bilirubin 0.7 AST 24 ALT 37 Alkaline Phosphatase 122 Total Protein 5.9 L Albumin 2.7 L 08/19/18 08/19/18 08/19/18 02:17 02:17 06:56 Creatine Kinase 44 L 39 L CK-MB (CK-2) 0.66 Troponin I 0.031 08/19/18 08/19/18 08/19/18 06:56 15:40 15:40 Creatine Kinase 43 L CK-MB (CK-2) 0.72 0.87 Troponin I 0.027 0.021 Impressions: Head CT 08/17/18 15:17 IMPRESSION: NORMAL BRAIN CT WITHOUT CONTRAST. EVIDENCE OF ACUTE STROKE: NO. Head MRI 08/17/18 17:48 IMPRESSION: Positive for numerous lacunar acute or sub-acute infarctions involving both cerebral hemispheres as well as both cerebellar hemispheres. EVIDENCE OF ACUTE STROKE: YES. Bilateral anterior and posterior circulation Carotid Doppler Study 08/18/18 00:00 IMPRESSION: NO HEMODYNAMICALLY SIGNIFICANT STENOSIS. Head CTA 08/18/18 00:00 IMPRESSION: NO CTA EVIDENCE OF STENOSIS OR ANEURYSM OF THE [place] CHILDR[place]. Neck CTA 08/18/18 00:00 IMPRESSION: 1. NORMAL CTA OF THE EXTRA-CRANIAL CAROTID AND VERTEBRAL ARTERIES. 2. LEFT SUPRAHILAR AND AORTA PULMONARY WINDOW MASS WHICH HAS INCREASED IN SIZE SINCE THE PRIOR CHEST CT. Thyroid Ultrasound 08/18/18 00:00 IMPRESSION: VERY LIMITED STUDY. 1 CM COLLOID CYST LEFT LOWER POLE THYROID. Lung Scan-VQ NM 08/18/18 08:50 IMPRESSION: Perfusion images show lack of radiotracer activity in the left upper lobe apical segments consistent with ventilation-perfusion mismatch. Scrotum Ultrasound 08/21/18 00:00 IMPRESSION: NORMAL SCROTAL ULTRASOUND. NO EVIDENCE OF TESTICULAR MASS OR TORSION. Chest X-Ray 08/22/18 00:00 IMPRESSION: No pneumothorax. Guidance Needle Placement CT 08/22/18 00:00 IMPRESSION: CT GUIDED BIOPSY OF THE LEFT UPPER LUNG NODULE PERFORMED WITHOUT IMMEDIATE COMPLICATION. PATHOLOGY PENDING. Lung Biopsy CT 08/22/18 00:00 IMPRESSION: CT GUIDED BIOPSY OF THE LEFT UPPER LUNG NODULE PERFORMED WITHOUT IMMEDIATE COMPLICATION. PATHOLOGY PENDING. Qualifiers - * PATIENT BEING DISCHARGED WITH ANY OF THE FOLLOWING DIAGNOSIS: Stroke Stroke Pt being discharged on Anti-thrombolytic therapy?: Yes Stroke Pt being discharged on Anti-coagulation therapy?: Yes Stroke Pt being discharged on Statins?: Yes MA Pt being discharged on Aspirin therapy?: Yes MA Pt being discharged on Statins?: Yes MA Pt discharged ACEI/ARBS?: Yes HF Pt being discharged on ACEI for LVEF less than 40%?: No Reason(s) for not prescribing ACEI:: Not indicated - Normal ejection fraction HF Pt being discharged on ARBS for LVEF less than 40%?: No Reason(s) for not prescribing ARBS:: Not indicated - Normal ejection fraction HF Pt with Afib discharged with Warfarin?: No Reason(s) for not prescribing Warfarin:: Drug declined by patient HF Pt discharged on evidence-based Beta Sally:: No Reason(s) for not prescribing evidence-based Beta Sally:: Not indicated - Normal ejection fraction Plan Time Spent: Greater than 30 Minutes
[2018-08-24 16:58] VITALS: BP 131/70
--- NOTE | 2018-09-02 16:58 | PDOC PROGRESS REPORT ---
Subjective Progress Note for:: 08/23/18 Subjective:: improving Reason For Visit: CHEST PAIN,BRADYCARDIA Physical Exam Vital Signs: Temp Pulse Resp BP Pulse Ox 98.7 F 59 L 18 131/70 H 96 08/24/18 16:56 08/24/18 16:56 08/24/18 16:56 08/24/18 16:56 08/24/18 16:56 General appearance: PRESENT: no acute distress, disheveled, obese Head exam: PRESENT: atraumatic, normocephalic Eye exam: PRESENT: conjunctiva pale, EOMI. ABSENT: nystagmus, periorbital swelling, scleral icterus Mouth exam: PRESENT: dry mucosa, neck supple, tongue midline Neck exam: ABSENT: carotid bruit, JVD, lymphadenopathy, thyromegaly, tracheal deviation, tracheostomy Respiratory exam: PRESENT: decreased breath sounds, prolonged expiratory phas, rales, rhonchi, unlabored. ABSENT: retraction, stridor Cardiovascular exam: PRESENT: RRR, +S1, +S2 Pulses: PRESENT: normal radial pulses GI/Abdominal exam: PRESENT: soft Extremities exam: ABSENT: calf tenderness, clubbing, joint swelling Musculoskeletal exam: ABSENT: deformity, dislocation Neurological exam: PRESENT: awake Psychiatric exam: PRESENT: flat affect Skin exam: PRESENT: dry, warm Results Laboratory Results: 08/24/18 04:29 08/24/18 04:29 08/19/18 08/19/18 08/19/18 02:17 02:17 06:56 Creatine Kinase 44 L 39 L CK-MB (CK-2) 0.66 Troponin I 0.031 08/19/18 08/19/18 08/19/18 06:56 15:40 15:40 Creatine Kinase 43 L CK-MB (CK-2) 0.72 0.87 Troponin I 0.027 0.021 Impressions: Head CT 08/17/18 15:17 IMPRESSION: NORMAL BRAIN CT WITHOUT CONTRAST. EVIDENCE OF ACUTE STROKE: NO. Head MRI 08/17/18 17:48 IMPRESSION: Positive for numerous lacunar acute or sub-acute infarctions involving both cerebral hemispheres as well as both cerebellar hemispheres. EVIDENCE OF ACUTE STROKE: YES. Bilateral anterior and posterior circulation Carotid Doppler Study 08/18/18 00:00 IMPRESSION: NO HEMODYNAMICALLY SIGNIFICANT STENOSIS. Head CTA 08/18/18 00:00 IMPRESSION: NO CTA EVIDENCE OF STENOSIS OR ANEURYSM OF THE LUMBEE OF CHILDRESS. Neck CTA 08/18/18 00:00 IMPRESSION: 1. NORMAL CTA OF THE EXTRA-CRANIAL CAROTID AND VERTEBRAL ARTERIES. 2. LEFT SUPRAHILAR AND AORTA PULMONARY WINDOW MASS WHICH HAS INCREASED IN SIZE SINCE THE PRIOR CHEST CT. Thyroid Ultrasound 08/18/18 00:00 IMPRESSION: VERY LIMITED STUDY. 1 CM COLLOID CYST LEFT LOWER POLE THYROID. Lung Scan-VQ NM 08/18/18 08:50 IMPRESSION: Perfusion images show lack of radiotracer activity in the left upper lobe apical segments consistent with ventilation-perfusion mismatch. Scrotum Ultrasound 08/21/18 00:00 IMPRESSION: NORMAL SCROTAL ULTRASOUND. NO EVIDENCE OF TESTICULAR MASS OR TORSION. Chest X-Ray 08/22/18 00:00 IMPRESSION: No pneumothorax. Guidance Needle Placement CT 08/22/18 00:00 IMPRESSION: CT GUIDED BIOPSY OF THE LEFT UPPER LUNG NODULE PERFORMED WITHOUT IMMEDIATE COMPLICATION. PATHOLOGY PENDING. Lung Biopsy CT 08/22/18 00:00 IMPRESSION: CT GUIDED BIOPSY OF THE LEFT UPPER LUNG NODULE PERFORMED WITHOUT IMMEDIATE COMPLICATION. PATHOLOGY PENDING. Assessment & Plan - Diagnosis (1) Cerebrovascular accident Qualifiers: CVA mechanism: unspecified Qualified Code(s): I63.9 - Cerebral infarction, unspecified Is this a current diagnosis for this admission?: Yes (2) Sleep apnea syndrome Qualifiers: Sleep apnea type: unspecified type Qualified Code(s): G47.30 - Sleep apnea , unspecified Is this a current diagnosis for this admission?: Yes Plan: Nocturnal l polysomnogram (3) Atrial fibrillation with RVR Is this a current diagnosis for this admission?: Yes Plan: Normal sinus rhythm (4) Hypertension Qualifiers: Hypertension type: essential hypertension Qualified Code(s): I10 - Essential (primary) hypertension Is this a current diagnosis for this admission?: Yes Plan: STable at this time (5) Lung mass Is this a current diagnosis for this admission?: Yes Plan: a CT-guided needle biopsy of the lung mass on the left side of his chest
== END 2018-08-24 16:58 | disposition home or self-care (01) | DRG 66 ==
LOC: ER 12:58 → EH 18:02 → 3S 22:29 → OBSVTOIN 08-18 08:26 → ICU 08-18 08:51 → 3W 08-19 14:11
PROVIDERS: ADMIT Internal Medicine; ATTEND Internal Medicine
PROC: 0BBG3ZX Excision of Left Upper Lung Lobe, Percutaneous Approach, Diagnostic (ICD-10-PCS; principal; 2018-08-22)
DX: I63.81 Other cerebral infarction due to occlusion or stenosis of small artery (principal); I48.0 Paroxysmal atrial fibrillation; R91.8 Other nonspecific abnormal finding of lung field; R07.9 Chest pain, unspecified; I10 Essential (primary) hypertension; K21.9 Gastro-esophageal reflux disease without esophagitis; R10.30 Lower abdominal pain, unspecified; G47.30 Sleep apnea, unspecified; H57.12 Ocular pain, left eye; I25.2 Old myocardial infarction; Z79.01 Long term (current) use of anticoagulants; Z79.82 Long term (current) use of aspirin; Z79.899 Other long term (current) drug therapy; Z91.19 Patient's noncompliance with other medical treatment and regimen
CPT/HCPCS: 32405; 36415; 36600; 70450; 70496; 70498; 70551; 71045; 76536; 76870; 77012; 78582; 80048; 80053; 81001; 82272; 82550; 82553; 82803; 83735; 84100; 84443; 84484; 85025; 85610; 85652; 85730; 86140; 88305; 88313; 88341; 88342; 93005; 93010; 93306; 93880; 93976; 94660; 99285; A9540; A9567; G0378; J0461; J1644; J1885; J2250; J2270; J3010; J3490; J7030; Q9969; S0164

== ENCOUNTER 2018-08-27 10:21 | Emergency (ER) | payer OTHER ==
[2018-08-27] MEDS ORDERED: MORPHINE SULFATE 10 MG/ML INJ IV ONE (10:34)
[2018-08-27] MEDS ORDERED: NITROGLYCERIN 0.4 MG/TAB 25 TAB/BOTTLE SL PRN (10:34)
--- NOTE | 2018-08-27 10:40 | ER Document Report ---
ED Cardiac - General Chief Complaint: Chest Pain Stated Complaint: CHEST PAIN Time Seen by Provider: 08/27/18 10:25 TRAVEL OUTSIDE OF THE [place] IN LAST 30 DAYS: No - HPI Notes: Patient is a 58-year-old male that presents to the emergency department for chief complaint of chest pain and leg pain. Patient reports he has had constant left-sided chest pain for the last few weeks. He states he was seen in the hospital recently and discharged on Monday for similar symptoms. He denies any change in his symptoms since being discharged. He denies any new symptoms since being discharged. He states he did not feel well when he left the hospital. He has had persistent chest pain and left leg pain. The pain is sharp and worse with movement. He states it is better with pain medicine but he is not sure which pain medicine helps. He is a poor historian and is not sure if he has taken his Xarelto yet today. He states he has taken all of the medicines that he was given but he is not sure which ones those are. He denies any nausea, vomiting, shortness of breath, syncope, fevers and chills. Past Medical History: Atrial fibrillation, CVA, lung mass, hypertension Past Surgical History: Reviewed in chart Social History: Quit tobacco 3 weeks ago. Denies drug and alcohol use Family History: Reviewed and noncontributory for presenting illness Allergies: Reviewed, see documented allergy list. REVIEW OF SYSTEMS: CONSTITUTIONAL : No fever No chills No diaphoresis No recent illness EENT: No vision changes No congestion No sore throat CARDIOVASCULAR: chest pain No palpitations RESPIRATORY: No shortness of breath No cough No difficulty breathing GASTROINTESTINAL: No abdominal pain No nausea No vomiting No diarrhea GENITOURINARY: No dysuria No hematuria No difficulty urinating MUSCULOSKELETAL: No back pain leg pain No arm pain SKIN: No rashes No lesions LYMPHATIC: No swollen, enlarged glands. NEUROLOGICAL: No lightheadedness No headache No weakness No paresthesias PSYCHIATRIC: No anxiety No depression PHYSICAL EXAMINATION: Vital signs reviewed, nursing noted reviewed. GENERAL: Well-appearing, well-nourished and in no acute distress. HEAD: Atraumatic, normocephalic. EYES: Eyes appear normal, extraocular movements intact, sclera anicteric, conjunctiva are normal. ENT: nares patent, oropharynx clear without exudates. Moist mucous membranes. NECK: Normal range of motion, supple without lymphadenopathy LUNGS: Breath sounds clear to auscultation bilaterally and equal. No wheezes rales or rhonchi. HEART: Regular rate and rhythm without murmurs ABDOMEN: Soft, nontender, normoactive bowel sounds. No rebound, guarding, or rigidity. No masses appreciated. EXTREMITIES: Tenderness to palpation of left lower extremity with no bony deformity or signs of injury, good range of motion, no pitting or edema. NEUROLOGICAL: No focal neurological deficits. Moves all extremities spontaneously Motor and sensory grossly intact on exam. PSYCH: Normal mood, normal affect. SKIN: Warm, Dry, normal turgor, no rashes or lesions noted on exposed skin - Related Data Allergies/Adverse Reactions: meloxicam Allergy (Intermediate, Verified 04/20/18 17:02) Dizziness pentazocine Adverse Reaction (Intermediate, Verified 04/20/18 17:02) LIGHTHEADEDNESS metoclopramide Adverse Reaction (Verified 04/20/18 17:02) UNKNOWN tamsulosin Adverse Reaction (Verified 04/20/18 17:02) UNKNOWN Past Medical History - Social History Smoking Status: Former Smoker Family History: CAD, Hypertension - Past Medical History Cardiac Medical History: Reports: Hx Heart Attack - Non-STEMI April 2016, Hx Hypertension Denies: Hx Congestive Heart Failure, Hx Coronary Artery Disease Pulmonary Medical History: Reports: Hx Pneumonia Denies: Hx Asthma, Hx Bronchitis, Hx COPD Neurological Medical History: Denies: Hx Cerebrovascular Accident, Hx Seizures Renal/ Medical History: Denies: Hx Peritoneal Dialysis GI Medical History: Reports: Hx Gastroesophageal Reflux Disease. Denies: Hx Ulcer Musculoskeletal Medical History: Reports Hx Arthritis - osteoarthritis Psychiatric Medical History: Denies: Hx Depression - Immunizations Hx Diphtheria, Pertussis, Tetanus Vaccination: No - UNSURE Review of Systems - Review of Systems Notes: Dictated Physical Exam - Vital signs Vitals: Temp Pulse Resp BP Pulse Ox 98.1 F 74 20 138/90 H 95 08/27/18 10:24 08/27/18 10:24 08/27/18 10:24 08/27/18 10:24 08/27/18 10:24 - Notes Notes: Dictated Course - Re-evaluation Re-evalutation: 08/27/18 10:40 Vitals reviewed. Nursing notes reviewed. Patient received 324 mg of aspirin prior to arrival. He was given nitro and morphine in the ED for his persistent chest pain. EKG shows no change compared to prior. 08/27/18 12:12 Patient's lab work shows elevated troponin. He was started on heparin infusion for NSTEMI on reevaluation his pain is improved but he states it is still coming and going. Currently he is pain-free. Patients repeat EKG is unchanged. He will be transferred to [facility] for further cardiac evaluation and possible heart catheterization. Patient in agreement with this plan. Laboratory 08/27/18 08/27/18 08/27/18 10:29 10:29 10:29 WBC 10.8 H RBC 4.44 Hgb 12.7 L Hct 36.2 L MCV 82 MCH 28.7 MCHC 35.2 RDW 16.8 H Plt Count 611 H Seg Neutrophils % 73.9 Lymphocytes % 16.2 Monocytes % 9.3 Eosinophils % 0.1 Basophils % 0.5 Absolute Neutrophils 8.0 Absolute Lymphocytes 1.8 Absolute Monocytes 1.0 Absolute Eosinophils 0.0 Absolute Basophils 0.1 Sodium 138.7 Potassium 4.4 Chloride 103 Carbon Dioxide 23 Anion Gap 13 BUN 14 Creatinine 1.12 Est GFR ( Amer) > 60 Est GFR (Non-Af Amer) > 60 Glucose 104 Calcium 10.3 H Troponin I 0.567 Chest X-Ray 08/27/18 10:26 IMPRESSION: The previously described nodular opacity in the left upper lobe is not well visualized on the current study. No pneumothorax is seen. Other findings as noted above 08/27/18 12:21 Case discussed with accepting physician Dr. Pereira at [facility] who accepted transfer and admission - Vital Signs Vital signs: Temp Pulse Resp BP Pulse Ox 98.1 F 74 22 H 147/99 H 100 08/27/18 10:24 08/27/18 10:24 08/27/18 11:01 08/27/18 11:01 08/27/18 11:01 - Laboratory Result Diagrams: 08/27/18 10:29 08/27/18 10:29 Laboratory results interpreted by me: 08/27/18 08/27/18 10:29 10:29 WBC 10.8 H Hgb 12.7 L Hct 36.2 L RDW 16.8 H Plt Count 611 H Calcium 10.3 H - EKG Interpretation by Me Additional EKG results interpreted by me: 08/27/18 10:41 Interpreted by myself 1027: Normal sinus rhythm, rate 73, normal axis, no ectopy, no ST elevation, nonspecific T wave abnormalities. No change from 08/18/18 08/27/18 12:11 Interpreted by myself repeat EKG 1200: Normal sinus rhythm, rate 68, normal axis, no ectopy, no ST elevation, no significant change from initial Critical Care Note - Critical Care Note Total time excluding time spent on procedures (mins): 40 Comments: Heparin infusion for NSTEMI potential for cardiovascular compromise Discharge - Discharge Clinical Impression: NSTEMI (non-ST elevated myocardial infarction) Chest pain Qualifiers: Chest pain type: unspecified Qualified Code(s): R07.9 - Chest pain, unspecified Condition: Stable Disposition: [facility] [place]
[2018-08-27 10:47] LABS: ABSOLUTE BASOPHILS # (AUTO) 0.1 10^3/uL (0.0-0.2); ABSOLUTE LYMPHOCYTES (AUTO) 1.8 10^3/uL (0.5-4.7); BASOPHILS % (AUTO) 0.5 % (0-2); EOSINOPHILS % (AUTO) 0.1 % (0-6); HEMATOCRIT 36.2 % (37.9-51.0); HEMOGLOBIN 12.7 g/dL (13.5-17.0); LYMPHOCYTES % (AUTO) 16.2 % (13-45); MEAN CORPUSCULAR HEMOGLOBIN 28.7 pg (27.0-33.4); MEAN CORPUSCULAR HGB CONC 35.2 g/dL (32.0-36.0); MEAN CORPUSCULAR VOLUME 82 fl (80-97); MONOCYTES % (AUTO) 9.3 % (3-13); PLATELET COUNT 611 10^3/uL (150-450); RED BLOOD COUNT 4.44 10^6/uL (4.35-5.55); RED CELL DISTRIBUTION WIDTH 16.8 % (11.5-14.0); SEGMENTED NEUTROPHILS % (AUTO) 73.9 % (42-78); TOTAL CELLS COUNTED % (AUTO) 100 %; WHITE BLOOD COUNT 10.8 10^3/uL (4.0-10.5)
[2018-08-27 11:04] LABS: ANION GAP 13 (5-19); BLOOD UREA NITROGEN 14 mg/dL (7-20); CALCIUM 10.3 mg/dL (8.4-10.2); CARBON DIOXIDE 23 mmol/L (22-30); CHLORIDE 103 mmol/L (98-107); GLUCOSE 104 mg/dL (75-110); POTASSIUM 4.4 mmol/L (3.6-5.0); SODIUM 138.7 mmol/L (137-145)
--- NOTE | 2018-08-27 11:11 | RADIOLOGY REPORT (SQ) ---
EXAM DESCRIPTION: CHEST SINGLE VIEW COMPLETED DATE/TIME: 08/27/2018 10:56 am REASON FOR STUDY: chest pain COMPARISON: Chest x-ray dated 08/22/2018 EXAM PARAMETERS: NUMBER OF VIEWS: One view. TECHNIQUE: Single frontal radiographic view of the chest acquired. RADIATION DOSE: NA LIMITATIONS: None. FINDINGS: LUNGS AND PLEURA: The previously described nodular opacity in the left upper lobe is not w ell visualized on the current study. The remaining lung calloway are clear. No pneumothorax is seen. MEDIASTINUM AND HILAR STRUCTURES: There is some prominence of the left hilum and the possibility of a left hilar mass or adenopathy cannot be excluded. HEART AND VASCULAR STRUCTURES: Heart normal in size. Normal vasculature. BONES: No acute findings. HARDWARE: None in the chest. OTHER: No other significant finding. IMPRESSION: The previously described nodular opacity in the left upper lobe is not well visualized o n the current study. No pneumothorax is seen. Other findings as noted above TECHNICAL DOCUMENTATION: JOB ID: [id number] [employer]- All Rights Reserved Reading location - IP/workstation name: [email or web address]
[2018-08-27] MEDS ORDERED: HEPARIN SODIUM,PORCINE/D5W 25,000 UNIT/250 ML RTUINJ IV PRN (11:42)
[2018-08-27] MEDS ORDERED: HEPARIN SOD (PORCINE) 1,000 UNIT/ML 10 ML VIAL IV ONE (11:42)
[2018-08-27 12:20] LABS: INTERNATIONAL RATION (INR) 1.09; PROTHROMBIN TIME 14.7 SEC (11.4-15.4)
[2018-08-27 12:21] LABS: PARTIAL THROMBOPLASTIN TIME 33.7 SEC (23.5-35.8)
[2018-08-27 12:36] LABS: APPEARANCE,URINE SLIGHTLY-CLOUDY; BILIRUBIN,URINE NEGATIVE (NEGATIVE); COLOR,URINE YELLOW; GLUCOSE, URINE NEGATIVE (NEGATIVE); KETONES,URINE NEGATIVE (NEGATIVE); LEUKOCYTE ESTERASE,URINE NEGATIVE (NEGATIVE); NITRITE,URINE NEGATIVE (NEGATIVE); PROTEIN,URINE NEGATIVE (NEGATIVE); URINE SPECIFIC GRAVITY 1.019
[2018-08-27 14:04] VITALS: BP 142/80
--- NOTE | 2018-08-27 23:19 | EKG REPORT ---
SEVERITY:- BORDERLINE ECG - SINUS RHYTHM BORDERLINE T WAVE ABNORMALITIES : Confirmed by: Lisette Bentley 27-Aug-2018 23:19:06
--- NOTE | 2018-08-27 23:20 | EKG REPORT ---
SEVERITY:- BORDERLINE ECG - SINUS RHYTHM PROBABLE LEFT ATRIAL ABNORMALITY BORDERLINE T ABNORMALITIES, ANT-LAT LEADS : Confirmed by: Lisette Bentley 27-Aug-2018 23:19:15
== END 2018-08-27 15:00 | disposition short-term general hospital (02) ==
LOC: ER 10:21
DX: I21.4 Non-ST elevation (NSTEMI) myocardial infarction (principal); R07.9 Chest pain, unspecified; M79.605 Pain in left leg
CPT/HCPCS: 93005; 99291; 96374; 96375; 36415; 85025; 85610; 85730; 80048; 81001; 84484; 71045; 93010; J1644 ×2; J2270